=== PATIENT | male | born 1960 | race Caucasian/White ===

== ENCOUNTER 2017-02-07 18:08 | Emergency (ER) | payer BC, OTHER ==
[~2017-02-07] VITALS: Ht 175.3 cm; Wt 97.5 kg
[~2017-02-07 18:08] MED LIST: ASPI81TA3 PO; CIPR500T4 PO; CLIN-73 PO; GLIM1TAB2 PO; LISI40TA9 PO; LOVA20TA PO; MTF1000T PO; VERA80TA PO
[2017-02-07 18:26] VITALS: Ht 175.3 cm; Wt 97.5 kg
--- NOTE | 2017-02-07 20:52 | RADRPT ---
PROCEDURE: Left great toe. CLINICAL INDICATION: Pain. History of a fall. TECHNIQUE: AP oblique and lateral views are performed. COMPARISON: Left os 08/27/2015. FINDINGS: There is a metaphyseal spur off of the distal left first phalanx. The bony elements of the left gre at toe were normal. 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 There is wi dening of the left second PIP joint. IMPRESSION: 1. Normal left great toe. 2. 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 RPTAT:AAJJ Physician Salvador Date Time Electronically viewed and signed by Adolph Bird Physician on 02/07/2017 20:52 EH/
[2017-02-07] MEDS ORDERED: CIPR500T4 PO (21:23)
--- NOTE | 2017-02-07 21:34 | ERD ---
ER Documentation Chief Complaint Date/Time DATE: 02/07/17 TIME: 21:26 Chief Complaint LEFT GREAT TOE PAIN AND SWELLING, NAIL MOVING. STATES NO TRAUMA, HX DM HPI 56-year-old male patient with a past medical history of diabetes, hypertension, hyperlipidemia presents to the ED complaining of a left great toe swelling and feels like the nail is moving. Reports that this started 2 days ago. States that he was dancing in some dress shoes a few days ago but denies any trauma. Denies any abdominal pain, nausea, vomiting, loss of sensation, loss of range of motion. Reports that he has had a previous left second toe cellulitis but denies any pain or injury to that affected toe. States that he takes terbinafine, metformin, lisinopril, lovastatin, glimepiride, aspirin, folic acid. ROS All systems reviewed and are negative except as per history of present illness. Medications Home Meds Active Scripts Ibuprofen* (Motrin*) 600 Mg Tab, 600 MG PO Q6, #30 TAB Prov:MACHELLE MEADE PA-C 02/07/17 Ciprofloxacin Hcl* (Ciprofloxacin Hcl*) 500 Mg Tablet, 500 MG PO BID for 7 Days , TAB Prov:MACHELLE MEADE PA-C 02/07/17 Reported Medications Aspirin* (Aspirin* Chew) 81 Mg Tab.chew, 81 MG PO DAILY, TAB.CHEW 08/27/15 Lovastatin* (Lovastatin*) 20 Mg Tablet, 20 MG PO HS, TAB 08/27/15 Verapamil Hcl* (Calan*) 80 Mg Tablet, 80 MG PO TID, TAB 08/27/15 Glimepiride* (Glimepiride*) 1 Mg Tablet, 1 MG PO BID, TAB 08/27/15 Metformin* (Glucophage*) 1,000 Mg Tablet, 1000 MG PO BID, TAB 08/27/15 Lisinopril* (Lisinopril*) 40 Mg Tablet, 40 MG PO BID, TAB 08/27/15 Ciprofloxacin Hcl* (Ciprofloxacin Hcl*) 500 Mg Tablet, 500 MG PO BID for 10 Days , TAB 08/27/15 Clindamycin Hcl* (Clindamycin Hcl*) 300 Mg Capsule, 300 MG PO Q6 for 10 Days, CAP 08/27/15 Allergies Allergies: Coded Allergies: No Known Allergy (Unverified , 08/27/15) PMhx/Soc History of Surgery: No Anesthesia Reaction: No Hx Neurological Disorder: No Hx Respiratory Disorders: No Hx Cardiac Disorders: No Hx Psychiatric Problems: No Hx Miscellaneous Medical Probl: Yes (DM) Hx Alcohol Use: No Hx Substance Use: No Hx Tobacco Use: No Smoking Status: Never smoker Physical Exam Vitals Vital Signs Date Time Temp Pulse Resp B/P Pulse Ox O2 Delivery O2 Flow Rate FiO2 02/07/17 21:53 169/88 02/07/17 18:26 98.3 84 98 173/86 98 Physical Exam Const: Xcu-poa-megtkojsr, well-nourished. In no acute distress. Head: Atraumatic, normocephalic Eyes: Normal Conjunctiva without injection ENT: Normal external ear, nose and mouth. Neck: Full range of motion. No meningismus. Resp: Clear to auscultation bilaterally. No wheezing, rhonchi, rales, or crackles. No accessory muscle use. No retractions. Cardio: Regular rate and rhythm, no murmurs Skin: No petechiae or rashes Back: No midline tenderness. No CVA tenderness. Ext: No cyanosis, or edema. Cap refill less than 2 seconds. Distal pulses intact bilaterally. Left great toe fluctuance noted at the base of the nailbed with slight hematoma noted under. No erythema, edema, warmth to touch. No deformities noted. Neur: Awake and alert. Normal gait and coordination. Muscle strength 5/5. Sensation intact bilaterally. Psych: Normal Mood and Affect Procedures/MDM 56-year-old male patient with no significant past medical history presents to the ED complaining of a left great toe swelling after a possible injury from dancing. Patient is afebrile and nontoxic-appearing. Patient's blood pressure was noted to be 173/86. Patient's blood pressure was elevated (>120/80) but appears stable without evidence of hypertension emergency or urgency. The patient was counseled about the risks of hypertension and urged to pursue outpatient monitoring and therapy within a week with their primary care physician. Low suspicion for end organ damage. A left great toe x-ray was ordered to further evaluate patient. PROCEDURE: Left great toe. CLINICAL INDICATION: Pain. History of a fall. TECHNIQUE: AP oblique and lateral views are performed. COMPARISON: Left os 08/27/2015. FINDINGS: There is a metaphyseal spur off of the distal left first phalanx. The bony elements of the left great toe were normal. 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 There is widening of the left second PIP joint. IMPRESSION: 1. Normal left great toe. 2. 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 Patient gave consent to drain the paronychia versus subungual hematoma. Serosanguineous with clearish pink fluid was drained from the site using scissors that slightly grazed under the nail bed. No incision was made. No complications. Patient tolerated the procedure. A clean dressing was applied to the affected area. Patient's extremity symptoms have stabilized while they have been evaluated in the department and are appropriate for outpatient follow up. No evidence of fractures, dislocations, compartment syndrome, neurologic injury, vascular injury, open joint, open fracture, tendon laceration, septic arthritis, osteomyelitis, DVT, foreign body, or other emergent conditions. This case was discussed with my supervising physician, Dr. Rich The acro- osteolysis could likely be due to the chronic cellulitis that was previously noted of patient's left second phalanx. Patient does not complain of any left second phalanx pain, swelling or redness. Ciprofloxacin will be prescribed to patient to cover for possible pseudomonas since patient was wearing his shoes during a possible trauma to his left great toe while dancing. Patient is placed in a dressing of the left great toe. Denied wanting any crutches. Splint Assessment: Neurovascularly intact pre and post splint placement with good fit. Discharge medications: Ibuprofen, Ciprofloxacin Follow up with primary care physician in 1-2 days. Instructed patient to return to the ED sooner for any worsening symptoms. Patient's questions were answered. Patient understood and agreed with discharge plan. Patient discharged stable. Departure Diagnosis: Primary Impression: Paronychia of great toe, left Condition: Stable Patient Instructions: Paronychia Referrals: COMM[facility]ITY CLINICS YOU HAVE RECEIVED A MEDICAL SCREENING EXAM AND THE RESULTS INDICATE THAT YOU DO NOT HAVE A CONDITION THAT REQUIRES URGENT TREATMENT IN THE EMERGENCY DEPARTMENT. FURTHER EVALUATION AND TREATMENT OF YOUR CONDITION CAN WAIT UNTIL YOU ARE SEEN IN YOUR DOCTORS OFFICE WITHIN THE NEXT 1-2 DAYS. IT IS YOUR RESPONSIBILITY TO MAKE AN APPOINTMENT FOR FOLOW-UP CARE. IF YOU HAVE A PRIMARY DOCTOR --you should call your primary doctor and schedule an appointment IF YOU DO NOT HAVE A PRIMARY DOCTOR YOU CAN CALL OUR PHYSICIAN REFERRAL HOTLINE AT IF YOU CAN NOT AFFORD TO SEE A PHYSICIAN YOU CAN CHOSE FROM THE FOLLOWING [facility] [address] [facility] [address] [facility] [address] [facility] [address] [facility] [address] [facility]. [facility] [address] [facility]. [facility] YOU HAVE RECEIVED A MEDICAL SCREENING EXAM AND THE RESULTS INDICATE THAT YOU DO NOT HAVE A CONDITION THAT REQUIRES URGENT TREATMENT IN THE EMERGENCY DEPARTMENT. FURTHER EVALUATION AND TREATMENT OF YOUR CONDITION CAN WAIT UNTIL YOU ARE SEEN IN YOUR DOCTORS OFFICE WITHIN THE NEXT 1-2 DAYS. IT IS YOUR RESPONSIBILITY TO MAKE AN APPOINTMENT FOR FOLOW-UP CARE. IF YOU HAVE A PRIMARY DOCTOR --you should call your primary doctor and schedule and appointment IF YOU DO NOT HAVE A PRIMARY DOCTOR YOU CAN CALL OUR PHYSICIAN REFERRAL HOTLINE AT . IF YOU CAN NOT AFFORD TO SEE A PHYSICIAN YOU CAN CHOSE FROM THE FOLLOWING [facility] INSTITUTIONS: [facility] [address] [place] [address] [facility] [address] [place] [address] [facility] [address] [place] [address] [facility] URGENT CARE/SPECIALTIES Additional Instructions: Seguimiento con mclaughlin mdico de faye en 2 prado para marian referencia al podlogo. WOUND CHECK:CONSULTE A MCLAUGHLIN MDICO EN 2 prado para marie MCLAUGHLIN HERIDA. Regrese a estas instalaciones si no se mejora jj esperbamos o jj le dijimos. MACHELLE MEADE PA-C Feb 07, 2017 21:34
[2017-02-07] MEDS ORDERED: IBUP-1542 PO (21:35)
[2017-02-07 21:53] VITALS: BP 169/88
== END 2017-02-07 21:53 | disposition home or self-care (01) ==
LOC: FTE 18:08
DX: L03.032 Cellulitis of left toe (principal); E11.9 Type 2 diabetes mellitus without complications; Z79.4 Long term (current) use of insulin; Z79.82 Long term (current) use of aspirin; Z79.84 Long term (current) use of oral hypoglycemic drugs
CPT/HCPCS: 73660; Z7502

== ENCOUNTER 2017-04-11 16:24 | Emergency (ER) | payer OTHER ==
[~2017-04-11] VITALS: Ht 167.6 cm; Wt 93.5 kg
[~2017-04-11 16:24] MED LIST changes: +IBUP-1542 PO
[2017-04-11 17:03] VITALS: Ht 167.6 cm; Wt 93.5 kg
[2017-04-11] MEDS ORDERED: SULF1TAB31 PO (17:20)
[2017-04-11] MEDS ORDERED: CEPH-443 PO (17:20)
--- NOTE | 2017-04-11 19:21 | ERA ---
ER Documentation Chief Complaint Date/Time DATE: 04/11/17 TIME: 19:13 Chief Complaint Patient here for wound check HPI This is a 56-year-old male with a history of poorly controlled type 2 diabetes mellitus as well as hypertension presenting with a chief complaint of right second digit ulcer. Patient has a history of foot ulcer on various toes. Patient also describes foul smell. Patient denies pain, discharge, dizziness, polyuria, polydipsia, headache, fever, or doing anything to improve the symptoms. Patient has no other complaints and describes no other associated manifestations. ROS All systems reviewed and are negative except as per history of present illness. Medications Home Meds Active Scripts Cephalexin* (Keflex*) 500 Mg Capsule, 500 MG PO QID for 5 Days, CAP Prov:PRISCILA RUDOLPH PA-C 04/11/17 Sulfamethoxazole/Trimethoprim* (Bactrim Ds* Tablet) 1 Each Tablet, 1 TAB PO BID , #14 TAB Prov:PRISCILA RUDOLPH PA-C 04/11/17 Ibuprofen* (Motrin*) 600 Mg Tab, 600 MG PO Q6, #30 TAB Prov:MACHELLE MEADE PA-C 02/07/17 Ciprofloxacin Hcl* (Ciprofloxacin Hcl*) 500 Mg Tablet, 500 MG PO BID for 7 Days , TAB Prov:MACHELLE MEADE PA-C 02/07/17 Reported Medications Aspirin* (Aspirin* Chew) 81 Mg Tab.chew, 81 MG PO DAILY, TAB.CHEW 08/27/15 Lovastatin* (Lovastatin*) 20 Mg Tablet, 20 MG PO HS, TAB 08/27/15 Verapamil Hcl* (Calan*) 80 Mg Tablet, 80 MG PO TID, TAB 08/27/15 Glimepiride* (Glimepiride*) 1 Mg Tablet, 1 MG PO BID, TAB 08/27/15 Metformin* (Glucophage*) 1,000 Mg Tablet, 1000 MG PO BID, TAB 08/27/15 Lisinopril* (Lisinopril*) 40 Mg Tablet, 40 MG PO BID, TAB 08/27/15 Ciprofloxacin Hcl* (Ciprofloxacin Hcl*) 500 Mg Tablet, 500 MG PO BID for 10 Days , TAB 08/27/15 Clindamycin Hcl* (Clindamycin Hcl*) 300 Mg Capsule, 300 MG PO Q6 for 10 Days, CAP 08/27/15 Allergies Allergies: Coded Allergies: No Known Allergy (Unverified , 08/27/15) PMhx/Soc History of Surgery: No Anesthesia Reaction: No Hx Neurological Disorder: No Hx Respiratory Disorders: No Hx Cardiac Disorders: No Hx Psychiatric Problems: No Hx Miscellaneous Medical Probl: Yes (DM) Hx Alcohol Use: No Hx Substance Use: No Hx Tobacco Use: No Physical Exam Vitals Vital Signs Date Time Temp Pulse Resp B/P Pulse Ox O2 Delivery O2 Flow Rate FiO2 04/11/17 17:03 97.2 76 20 157/76 99 Physical Exam Const: Overweight 56-year-old male in no acute distress Head: Atraumatic Eyes: Normal Conjunctiva ENT: Normal External Ears, Nose and Mouth. Neck: Full range of motion..~ No meningismus. Resp: Clear to auscultation bilaterally Cardio: Regular rate and rhythm, no murmurs Abd: Soft, non tender, non distended. Normal bowel sounds Skin: No petechiae or rashes. As noted in extremity exam. Back: No midline or flank tenderness Ext: 2+ pitting edema bilaterally of lower extremities. Distal right second digit of foot is necrotic but not passing the subcutaneous tissue. Sensation is still intact. Full range of motion. Neur: Awake and alert. As noted in extremity exam. Neurovascularly intact bilaterally. Psych: Normal Mood and Affect Procedures/MDM This is a 56-year-old male with history of type 2 diabetes mellitus that is uncontrolled and a history of diabetic foot ulcers. Patient is presenting with signs and symptoms consistent with a diabetic foot ulcer. I have little suspicion for systemic infection, osteomyelitis or immediate threatening of toe viability at this time. I presented the case to my attending Dr. Rich who has suggested antibiotics with Keflex and Bactrim with close follow-up in the next 1-3 days with amputation prevention center. A handout of the amputation prevention center has been given to the patient. Patient has verbally responded that he agrees and understands the seriousness of his current condition and the plan of management. Patient's vitals are stable and will be discharged at this time with discharge instructions and return precautions Departure Diagnosis: Primary Impression: Diabetic foot ulcers Qualified Code: E11.621 - Diabetic ulcer of toe of right foot associated with type 2 diabetes mellitus, unspecified ulcer stage Additional Impression: Diabetic foot infection Condition: Stable Patient Instructions: Diabetic Foot Ulcers Referrals: [facility] Additional Instructions: Follow up with am[facility] prevention center within the next 1-3 days for a more thorough evaluation. Follow-up with PCP in the next week. Return the the emergency department immediately if symptoms worsen or change. If you have any questions regarding medications, ask your pharmacist or us before you leave. If any adverse reactions occur while taking your medications, discontinue the treatment and return to the emergency department immediately. Take your medications as directed, and complete the entire course of treatment. PRISCILA RUDOLPH PA-C Apr 11, 2017 19:21
== END 2017-04-11 17:27 | disposition home or self-care (01) ==
LOC: FTE 16:24 → E/R 17:27
DX: E11.621 Type 2 diabetes mellitus with foot ulcer (principal); L97.519 Non-pressure chronic ulcer of other part of right foot with unspecified severity; L08.9 Local infection of the skin and subcutaneous tissue, unspecified; I10 Essential (primary) hypertension; Z79.82 Long term (current) use of aspirin; Z79.84 Long term (current) use of oral hypoglycemic drugs
CPT/HCPCS: 99284

== ENCOUNTER 2017-05-25 20:57 | Inpatient (IN) | payer OTHER ==
[~2017-05-25] VITALS: Ht 175.3 cm; Wt 90.2 kg
[~2017-05-25 20:57] MED LIST changes: +CEPH-443 PO; +SULF1TAB31 PO
[2017-05-25 22:50] LABS: BASOPHIL # 0.1 10^3/ul (0.0-0.1); BASOPHILS % 0.8 % (0.0-2.0); EOSINOPHILS # 0.2 10^3/ul (0.0-0.5); EOSINOPHILS % 2.5 % (0.0-7.0); HEMATOCRIT 34.6 % (42.0-52.0); HEMOGLOBIN 11.2 g/dl (14.0-18.0); LYMPHOCYTES # 1.6 10^3/ul (0.8-2.9); LYMPHOCYTES % 21.3 % (15.0-51.0); MEAN CORPUSCULAR HEMOGLOBIN 27.4 pg (29.0-33.0); MEAN CORPUSCULAR HGB CONC 32.4 g/dl (32.0-37.0); MEAN CORPUSCULAR VOLUME 84.6 fl (82.0-101.0); MEAN PLATELET VOLUME 10.3 fl (7.4-10.4); MONOCYTE # 0.7 10^3/ul (0.3-0.9); MONOCYTES % 9.8 % (0.0-11.0); NEUTROPHIL # 4.8 10^3/ul (1.6-7.5); NEUTROPHILS % 65.3 % (39.0-77.0); PLATELET COUNT 198 10^3/UL (140-415); RED BLOOD COUNT 4.09 10^6/ul (4.70-6.10); RED CELL DISTRIBUTION WIDTH 13.3 % (11.5-14.5); WHITE BLOOD COUNT 7.3 10^3/ul (4.8-10.8)
[2017-05-25 23:10] LABS: CALCIUM 9.4 mg/dl (8.4-10.2); CREATININE 0.87 mg/dl (0.61-1.24); POTASSIUM 4.2 mmol/L (3.5-5.1)
--- NOTE | 2017-05-25 23:12 | RADRPT ---
PROCEDURE: XR Foot. CLINICAL INDICATION: 56-year-old male. Injury to second toe.. TECHNIQUE: 3 views of the right foot COMPARISON: None available. FINDINGS: There is a complex fracture involving all phalanges of the second toe with soft tissue swelling. Th ere is a bone and soft tissue avulsion of the tuft of the distal phalanx. Comminuted fracture fragm ents remain and are dislocated at the distal interphalangeal joint. There is a minimally displaced intra-articular fracture of the base of the middle phalanx involving the PIP joint and there is a mi ldly displaced fracture of the head of the proximal phalanx involving the PIP joint. Normal alignme nt of the MTP joint. No acute fractures are identified elsewhere in the foot. Negative for radiopaque foreign body. IMPRESSION: Complex fracture involving all phalanges of the second toe with a soft tissue injury including bony and soft tissue avulsion of the tuft of the distal phalanx described above.. RPTAT: HCTS Physician Dominik Date Time Electronically viewed and signed by Physician Dominik on 05/25/2017 23:11 /
[2017-05-25] MEDS ORDERED: PIPER-TAZO 3.375 GM IV (PMX) 100 ML IVPB STA (23:25)
[2017-05-25] MEDS ORDERED: SOD CHLORIDE 0.9% 1,000 ML IV ONE (23:30)
[2017-05-25] MEDS ORDERED: VANCOMYCIN 1 GM (PMX) 250 ML IVPB ONE (23:30)
[2017-05-26] MEDS ORDERED: VITA400C41 PO (00:12)
[2017-05-26] MEDS ORDERED: MULTI PO (00:12)
[2017-05-26] MEDS ORDERED: BIOT1CAP3 PO (00:12)
[2017-05-26] MEDS ORDERED: OMEG-119 PO (00:12)
[2017-05-26] MEDS ORDERED: [UNRECOGNIZED DRUG - CODE] PO (00:12)
[2017-05-26] MEDS ORDERED: VITA1CAP PO (00:12)
[2017-05-26] MEDS ORDERED: CALC-516 PO (00:50)
[2017-05-26] MEDS ORDERED: VANCOMYCIN IV PER PHARMACY XX SCH (02:00)
[2017-05-26] MEDS ORDERED: ACETAMINOPHEN 325 MG TAB PO PRN (02:00)
--- NOTE | 2017-05-26 02:12 | QN ---
Documentation Comment H&P dict a/p 1. dm foot infection, check MRI, cont abx 2. r/o DVT r leg 3. check echo with bilat leg edema 4. htn, increase med BAN BENITEZ MD May 26, 2017 02:12
[2017-05-26] MEDS ORDERED: GLUCOSE GEL 15 GRAM TUBE PO PRN (02:15)
[2017-05-26] MEDS ORDERED: GLUCOSE GEL 15 GRAM TUBE BUCCAL PRN (02:15)
[2017-05-26] MEDS ORDERED: DEXTROSE 50% 50 ML SYRINGE IV PRN ×2 (02:15)
[2017-05-26] MEDS ORDERED: GLUCAGON 1 MG INJ IM PRN (02:15)
--- NOTE | 2017-05-26 02:33 | RADRPT ---
PROCEDURE: US right lower extremity venous Doppler CLINICAL INDICATION: Right leg swelling TECHNIQUE: Multiple sonographic images of the right lower extremity deep venous system was obtaine d utilizing grayscale, color-flow, compressive sonography and Doppler imaging with augmentation. COMPARISON: No pertinent prior examinations were submitted for comparison. FINDINGS: There is normal compressibility and flow within the right common femoral, superficial femoral, popli teal, and peroneal veins. IMPRESSION: No sonographic evidence for deep venous thrombosis. RPTAT: HIKT .Miguel Lechuga MD, MD Date Time Electronically viewed and signed by .Miguel Lechuga MD, MD on 05/26/2017 02:32 .T/
[2017-05-26 04:00] VITALS: BP 168/79; PULSE 80; RESP 18; Ht 175.3 cm; Wt 90.2 kg
--- NOTE | 2017-05-26 04:04 | HP ---
DATE OF ADMISSION: 05/25/2017 CHIEF COMPLAINT: Right foot pain. HISTORY OF PRESENT ILLNESS: Patient presents to emergency room at [facility] after the direction of his medtronics technician for worsening swelling and erythema of the right foot. This has apparently been getting progressively worse over the last 6 weeks or so. The patient has been taking oral antibiotics for this, went to see his medtronics technician today, and was referred to the emergency room. PAST MEDICAL HISTORY: Significant for diabetes with neuropathy, hypertension. MEDICATIONS: As an outpatient include: 1. Bactrim. 2. Keflex. 3. Lisinopril 40 mg b.i.d. 4. Lovastatin 20 mg daily. 5. Fish oil. 6. Verapamil 80 mg t.i.d. 7. Aspirin 81 mg daily. 8. Ibuprofen p.r.n. 9. Os-Bentley plus d. 10. Glimepiride 1 mg b.i.d. 11. Metformin 1000 mg b.i.d. 12. Multivitamin. 13. Biotin. 14. Vitamin E. ALLERGIES: NO KNOWN DRUG ALLERGIES. SOCIAL HISTORY: Patient lives at home in [place] with his mother. He is independent with activities of daily living. Continues to try drive. Denies tobacco, alcohol, or illicit drug use. FAMILY HISTORY: Noncontributory. REVIEW OF SYSTEMS: Five systems were reviewed and found not to be revealing. PHYSICAL EXAMINATION: VITAL SIGNS: Blood pressure 167/85, pulse rate 88, respirations 20, temperature is 99.1. GENERAL: Pleasant man, no acute distress. Alert and oriented x3. HEENT: Normocephalic, atraumatic. Without evidence of scleral icterus, perioral cyanosis. Mucous membranes moist. NECK: Soft and supple, without masses. No evidence of jugular venous distention. No carotid bruits. CHEST: Clear to auscultation and percussion bilaterally. HEART: A regular rate and rhythm. S1, S2. No added sounds. ABDOMEN: Soft, nontender, nondistended, without palpable hepatosplenomegaly. EXTREMITIES: Without clubbing or cyanosis. There is bilateral leg edema. However, the right is much more affected than his left. In the left foot, there is an area of dark discoloration over the 3rd toe. I am not certain that this was frankly necrotic and this may represent bruising or eschar. On the right foot, there is an area of hammertoe on the 3rd toe, but the 2nd toe is markedly swollen with a punctate area of expressible pus at the tip. SKIN: Otherwise without rashes. NEUROLOGICAL: Grossly intact. LABORATORY STUDIES: Reveal a hemoglobin of 11.2 g/dL, white count 7300, platelets of 190,000. Sodium 141, potassium 4.3, chloride of 101, bicarbonate 29, BUN 17, creatinine 0.87, glucose 178. Plain film x-ray shows local fractures of the 2nd toe phalanx. ASSESSMENT AND PLAN: 1. Diabetic foot infection. We will obtain MRI. Patient will undoubtedly need surgical debridement. Start intravenous antibiotics. 2. Right, much greater than left, leg swelling. Plan to rule out venous thromboembolic disease. Obtain vascular ultrasound. 3. Hypertension, add Coreg, hydralazine as needed. Continue verapamil and lisinopril, add hydrochlorothiazide. 4. Check echocardiogram, especially in light of both leg swelling. Dictated By: Ricardo Bear MD /luigi/naomi /Document#: [id number]
--- NOTE | 2017-05-26 04:04 | ERA ---
ER Documentation Chief Complaint Date/Time DATE: 05/26/17 TIME: 04:00 Chief Complaint right second toe drainage. Parking Meter Collector suggested to be in hospital. Hx: DM HPI This 56-year-old male presents the ER with discharge from his right second toe as well as whole foot swelling and swelling going up his leg. His first started 3 weeks ago. He has seen a private coordinator of library services since who today suggested that he go to the hospital for admission. He has been on Bactrim and Keflex for almost 2 weeks. He suffers from diabetes and has severe neuropathy with numbness of his feet. He does not remember any trauma to the foot area. He has had no fevers or chills. ROS All systems reviewed and are negative except as per history of present illness. Medications Home Meds Active Scripts Cephalexin* (Keflex*) 500 Mg Capsule, 500 MG PO QID for 5 Days, CAP Prov:PRISCILA RUDOLPH PA-C 04/11/17 Sulfamethoxazole/Trimethoprim* (Bactrim Ds* Tablet) 1 Each Tablet, 1 TAB PO BID , #14 TAB Prov:PRISCILA RUDOLPH PA-C 04/11/17 Ibuprofen* (Motrin*) 600 Mg Tab, 600 MG PO Q6, #30 TAB Prov:MACHELLE MEADE PA-C 02/07/17 Reported Medications Calcium Carbonate/Vitamin D3 (OY[place] SHELL CALCIUM TABLET) 1 Each Tablet, 1 EACH PO, TAB 05/26/17 Vitamin E Mixed* (Vitamin E*) 400 Unit Capsule, 400 UNIT PO DAILY, CAP 05/26/17 Biotin (BIOTIN) 1 Mg Capsule, 1 MG PO, CAP 05/26/17 Omega3/Dha/Epa/Fish Oil/Vit D3 ([place]-3 + Vitamin D3 Softgel) 1 Each Capsule, 1 EACH PO, CAP 05/26/17 Vitamin B Complex (Vitamin B Complex) 1 Each Capsule, 1 EACH PO, CAP 05/26/17 Multivitamins* (Theragran*) 1 Tab Tab, 1 TAB PO DAILY, TAB 05/26/17 Aspirin* (Aspirin* Chew) 81 Mg Tab.chew, 81 MG PO DAILY, TAB.CHEW 08/27/15 Lovastatin* (Lovastatin*) 20 Mg Tablet, 20 MG PO HS, TAB 08/27/15 Verapamil Hcl* (Calan*) 80 Mg Tablet, 80 MG PO TID, TAB 08/27/15 Glimepiride* (Glimepiride*) 1 Mg Tablet, 1 MG PO BID, TAB 08/27/15 Metformin* (Glucophage*) 1,000 Mg Tablet, 1000 MG PO BID, TAB 08/27/15 Lisinopril* (Lisinopril*) 40 Mg Tablet, 40 MG PO BID, TAB 08/27/15 Discontinued Reported Medications Calcium Phosphate Trib/Vit D3 (CALCIUM ADULT GUMMIES) 1 Each Tab.chew, 1 EACH PO , TAB.CHEW 05/26/17 Ciprofloxacin Hcl* (Ciprofloxacin Hcl*) 500 Mg Tablet, 500 MG PO BID for 10 Days , TAB 08/27/15 Clindamycin Hcl* (Clindamycin Hcl*) 300 Mg Capsule, 300 MG PO Q6 for 10 Days, CAP 08/27/15 Discontinued Scripts Ciprofloxacin Hcl* (Ciprofloxacin Hcl*) 500 Mg Tablet, 500 MG PO BID for 7 Days , TAB Prov:MACHELLE MEADE PA-C 02/07/17 Allergies Allergies: Coded Allergies: No Known Allergy (Unverified , 05/26/17) PMhx/Soc History of Surgery: No Anesthesia Reaction: No Hx Neurological Disorder: No Hx Respiratory Disorders: No Hx Cardiac Disorders: No Hx Psychiatric Problems: No Hx Miscellaneous Medical Probl: Yes (DM) Hx Alcohol Use: No Hx Substance Use: No Hx Tobacco Use: No Smoking Status: Unknown if ever smoked Physical Exam Vitals Vital Signs Date Time Temp Pulse Resp B/P Pulse Ox O2 Delivery O2 Flow Rate FiO2 05/26/17 03:16 81 18 153/81 100 Room Air 05/25/17 21:02 99.1 88 20 167/85 99 Physical Exam Const: [] No distress Head: Atraumatic Eyes: Normal Conjunctiva ENT: Normal External Ears, Nose and Mouth. Neck: Full range of motion..~ No meningismus. Resp: Clear to auscultation bilaterally Cardio: Regular rate and rhythm, no murmurs Abd: Soft, non tender, non distended. Normal bowel sounds Skin: No petechiae or rashes Ext: No cyanosis, markets swelling of the second toe as well as all the other toes and the foot the foot as well as the ankle and mcc up the manuel with circumferential erythema, calor. No fluctuant areas. Neur: Awake and alert and oriented 3, no focal deficits Psych: Normal Mood and Affect Result Diagram: 05/25/17223405/25/172234 Results 24 hrs Laboratory Tests Test 05/25/17 22:35 White Blood Count 7.310^3/ul Red Blood Count 4.0910^6/ul Hemoglobin 11.2g/dl Hematocrit 34.6% Mean Corpuscular Volume 84.6fl Mean Corpuscular Hemoglobin 27.4pg Mean Corpuscular Hemoglobin Concent 32.4g/dl Red Cell Distribution Width 13.3% Platelet Count 50143^3/UL Mean Platelet Volume 10.3fl Neutrophils % 65.3% Lymphocytes % 21.3% Monocytes % 9.8% Eosinophils % 2.5% Basophils % 0.8% Nucleated Red Blood Cells % 0.0/100WBC Neutrophils # 4.810^3/ul Lymphocytes # 1.610^3/ul Monocytes # 0.710^3/ul Eosinophils # 0.210^3/ul Basophils # 0.110^3/ul Nucleated Red Blood Cells # 0.010^3/ul Sodium Level 141mmol/L Potassium Level 4.2mmol/L Chloride Level 101mmol/L Carbon Dioxide Level 29mmol/L Anion Gap 15 Blood Urea Nitrogen 17mg/dl Creatinine 0.87mg/dl Glucose Level 178mg/dl Calcium Level 9.4mg/dl Current Medications Medications (Trade) Dose Ordered Sig/Collins Route PRN Reason Start Time Stop Time Status Last Admin Dose Admin Vancomycin HCl 250 ml @ 125 mls/hr ONCE ONCE IVPB 05/25/17 23:30 05/26/17 01:29 DC 05/26/17 01:03 Piperacillin Sod/ Tazobactam Sod 100 ml @ 200 mls/hr ONCE STAT IVPB 05/25/17 23:25 05/25/17 23:54 DC 05/26/17 00:18 Sodium Chloride (NS) 1,000 ml @ 1,000 mls/hr Q1H ONCE IV 05/25/17 23:30 05/26/17 00:29 DC 05/26/17 00:18 Aspirin (Aspirin) 81 mg DAILY PO 05/26/17 09:00 Lisinopril (Zestril) 40 mg BID PO 05/26/17 09:00 Metformin HCl (Glucophage) 1,000 mg BID WITH MEALS PO 05/26/17 08:00 Multivitamins Therapeutic (Theragran) 1 tab DAILY PO 05/26/17 09:00 Verapamil HCl (Isoptin) 80 mg TID PO 05/26/17 09:00 Vitamin E (Vitamin E) 400 units DAILY PO 05/26/17 09:00 Atorvastatin Calcium (Lipitor) 10 mg DAILY@21 PO 05/26/17 21:00 Vancomycin HCl VANCOMYCIN PER PHARMACY PER PROTOCOL XX 05/26/17 02:00 Piperacillin Sod/ Tazobactam Sod (Zosyn 3.375gm/ 100 ml (Pmx)) 100 ml @ 200 mls/hr Q8 IVPB 05/26/17 06:30 Acetaminophen (Tylenol Tab) 650 mg Q4H PRN PO pain/fever 05/26/17 02:00 Hydralazine HCl (Apresoline) 25 mg Q6H PRN PO sbp>160 05/26/17 02:00 Hydrochlorothiazide (Hydrochlorothiazide) 25 mg DAILY PO 05/26/17 09:00 Carvedilol (Coreg) 3.125 mg Q12H PO 05/26/17 02:00 05/26/17 03:15 Miscellaneous Information (* Miscellaneous Pharmacy Order) Discontinue current oral sulfonylur... ONCE ONCE XX 05/26/17 02:30 05/26/17 02:31 DC Diagnostic Test (Pha) (Accu-Chek) 1 ea 02 XX 05/27/17 02:00 UNV Miscellaneous Information (* Miscellaneous Pharmacy Order) HYPOGLYCEMIA PROTOCOL w... ONCE ONCE XX 05/26/17 02:30 05/26/17 02:31 DC Insulin Aspart (Novolog Insulin Pen) NOVOLOG *MODERATE* ALGORITHM WITH MEALS BEDTIME SC 05/26/17 08:00 UNV Insulin Aspart (Novolog Insulin Pen) NOVOLOG *MODERATE* ALGORI... Q4 SC 05/26/17 05:00 Miscellaneous Information Discontinue all previ... ONCE ONCE XX 05/26/17 02:30 05/26/17 02:31 DC Vancomycin HCl/ Sodium Chloride (Vancocin/NS) 250 ml @ 83.333 mls/ hr Q12H IVPB 05/26/17 09:00 Miscellaneous Information 1 ea NOTE XX 05/26/17 02:15 Glucose (Glutose) 15 gm Q15M PRN PO DECREASED GLUCOSE 05/26/17 02:15 Glucose (Glutose) 22.5 gm Q15M PRN PO DECREASED GLUCOSE 05/26/17 02:15 Dextrose (D50w Syringe) 25 ml Q15M PRN IV DECREASED GLUCOSE 05/26/17 02:15 Dextrose (D50w Syringe) 50 ml Q15M PRN IV DECREASED GLUCOSE 05/26/17 02:15 Glucagon (Glucagen) 1 mg Q15M PRN IM DECREASED GLUCOSE 05/26/17 02:15 Glucose (Glutose) 15 gm Q15M PRN BUCCAL DECREASED GLUCOSE 05/26/17 02:15 Procedures/MDM Diabetic with right leg cellulitis that failed outpatient treatment as well as what was previously an open fracture that was not treated for some time. Patient has fractures of all the phalanges of his right second toe. He remembers no trauma. Start him on vancomycin and Zosyn. Also gave him IV fluid and obtain blood cultures. The potentially limb threatening injury. Dr. Carmen came and saw the patient in the emergency room and will be admitting him to the medical surgical floor. X-ray foot interpretation: Fracture of all 3 bones of the right second toe. Market soft tissue swelling. Departure Diagnosis: Primary Impression: Cellulitis of right foot Additional Impressions: Failure of outpatient treatment Closed fracture of second toe of left foot Diabetic neuropathy Condition: Serious DINESH LIMON DO May 26, 2017 04:04
[2017-05-26] MEDS: INSULIN ASPART [NOVOLOG] 3 ML PEN SC SCH ×4 (04:43→21:00)
[2017-05-26] MEDS: DEXTROSE 5%-0.45% NACL 1,000 ML IV SCH ×2 (04:59→21:35)
[2017-05-26 05:27] LABS: INR 1.02; PARTIAL THROMBOPLASTIN TIME 31.3 Sec (25.0-35.0); PROTIME 13.4 Sec (12.2-14.2)
[2017-05-26] MEDS: PIPER-TAZO 3.375 GM IV (PMX) 100 ML IVPB SCH ×3 (06:27→21:34)
[2017-05-26] MEDS ORDERED: INSULIN ASPART [NOVOLOG] 3 ML PEN SC SCH ×2 (07:50→17:55)
[2017-05-26] MEDS ORDERED: metFORMIN 500 MG TAB PO SCH (07:50)
[2017-05-26 08:00] VITALS: BP 162/90; RESP 18
[2017-05-26] MEDS: LISINOPRIL 20 MG TAB PO SCH ×2 (09:45→21:24)
[2017-05-26] MEDS: ASPIRIN 81 MG TAB PO SCH ×2 (09:45→14:29)
[2017-05-26] MEDS: MULTIVITAMINS THERAPEUTIC TAB PO SCH (09:45)
[2017-05-26] MEDS: HYDROCHLOROTHIAZIDE 25 MG TAB PO SCH (09:45)
[2017-05-26] MEDS: VANCOMYCIN 1.25 GM in SOD CHLORIDE 0.9% 250 ML IVPB SCH ×2 (11:29→22:15)
[2017-05-26 14:00] VITALS: BP 163/85; RESP 18
[2017-05-26] MEDS: VITAMIN E 400 UNITS CAP PO SCH (14:29)
[2017-05-26] MEDS: VERAPAMIL 80 MG TAB PO SCH ×3 (14:30→21:23)
[2017-05-26 16:00] VITALS: BP 163/85; RESP 18
--- NOTE | 2017-05-26 16:00 | CONS ---
Date/Time of Note Date/Time of Note DATE: 05/26/17 TIME: 15:59 Consultation Date/Type/Reason Admit Date/Time May 26, 2017 at 02:03 Date of Consultation: May 26, 2017 Type of Consultation: ID Reason for Consultation Antibiotic management Social History Smoking Status: Former smoker Exam/Review of Systems Vital Signs Vitals Vital Signs Date Time Temp Pulse Resp B/P Pulse Ox O2 Delivery O2 Flow Rate FiO2 05/26/17 08:00 98.6 75 18 162/90 97 05/26/17 04:00 Room Air Results Result Diagram: 05/25/17 2235 05/26/17 0454 Results 24 hrs Laboratory Tests Test 05/25/17 22:35 05/26/17 04:23 05/26/17 04:54 05/26/17 04:58 White Blood Count 7.3 # Red Blood Count 4.09 L Hemoglobin 11.2 #L Hematocrit 34.6 #L Mean Corpuscular Volume 84.6 Mean Corpuscular Hemoglobin 27.4 L Mean Corpuscular Hemoglobin Concent 32.4 Red Cell Distribution Width 13.3 Platelet Count 198 Mean Platelet Volume 10.3 Neutrophils % 65.3 Lymphocytes % 21.3 Monocytes % 9.8 Eosinophils % 2.5 Basophils % 0.8 Nucleated Red Blood Cells % 0.0 Neutrophils # 4.8 Lymphocytes # 1.6 Monocytes # 0.7 Eosinophils # 0.2 Basophils # 0.1 Nucleated Red Blood Cells # 0.0 Sodium Level 141 Potassium Level 4.2 Chloride Level 101 Carbon Dioxide Level 29 Anion Gap 15 Blood Urea Nitrogen 17 Creatinine 0.87 Glucose Level 178 113 # Calcium Level 9.4 Bedside Glucose 56 L 113 Prothrombin Time 13.4 Prothrombin Time Ratio 1.0 INR International Normalized Ratio 1.02 Activated Partial Thromboplast Time 31.3 Test 05/26/17 05:18 05/26/17 09:43 05/26/17 12:54 05/26/17 13:42 Bedside Glucose 117 84 84 Hemoglobin A1c 6.1 H Medications Medications Current Medications Aspirin (Aspirin) 81 mg DAILY PO Last administered on 05/26/17 14:29; Admin Dose 81 MG; Start 05/26/17 at 09:00 Lisinopril (Zestril) 40 mg BID PO Last administered on 05/26/17 09:45; Admin Dose 40 MG; Start 05/26/17 at 09:00 Multivitamins Therapeutic (Theragran) 1 tab DAILY PO Last administered on 09:45; Admin Dose 1 TAB; Start 05/26/17 at 09:00 Verapamil HCl (Isoptin) 80 mg TID PO Last administered on 05/26/17 14:33; Admin Dose 80 MG; Start 05/26/17 at 09:00 Vitamin E (Vitamin E) 400 units DAILY PO Last administered on 05/26/17 14:29; Admin Dose 400 UNITS; Start 05/26/17 at 09:00 Atorvastatin Calcium 10 mg 10 mg DAILY@21 PO ; Start 05/26/17 at 21:00 Piperacillin Sod/ Tazobactam Sod (Zosyn 3.375gm/ 100 ml (Pmx)) 100 ml @ 200 mls /hr Q8 IVPB Last administered on 05/26/17 14:30; Admin Dose 200 MLS/HR; Start 05/26/17 at 06:30 Acetaminophen (Tylenol Tab) 650 mg Q4H PRN PO pain/fever; Start 05/26/17 at 02: 00 Hydralazine HCl (Apresoline) 25 mg Q6H PRN PO sbp>160; Start 05/26/17 at 02:00 Hydrochlorothiazide (Hydrochlorothiazide) 25 mg DAILY PO Last administered on 09:45; Admin Dose 25 MG; Start 05/26/17 at 09:00 Carvedilol 3.125 mg 3.125 mg Q12H PO Last administered on 05/26/17 14:29; Admin Dose 3.125 MG; Start 05/26/17 at 02:00 Vancomycin HCl/ Sodium Chloride (Vancocin/NS) 250 ml @ 83.333 mls/ hr Q12H IVPB Last administered on 05/26/17 11:29; Admin Dose 83.333 MLS/HR; Start 08/02 at 09:00 Miscellaneous Information 1 ea NOTE XX ; Start 05/26/17 at 02:15 Glucose (Glutose) 15 gm Q15M PRN PO DECREASED GLUCOSE; Start 05/26/17 at 02:15 Glucose (Glutose) 22.5 gm Q15M PRN PO DECREASED GLUCOSE; Start 05/26/17 at 02: 15 Dextrose (D50w Syringe) 25 ml Q15M PRN IV DECREASED GLUCOSE Last administered on 05/26/17 04:36; Admin Dose 25 ML; Start 05/26/17 at 02:15 Dextrose (D50w Syringe) 50 ml Q15M PRN IV DECREASED GLUCOSE; Start 05/26/17 at 02:15 Glucagon (Glucagen) 1 mg Q15M PRN IM DECREASED GLUCOSE; Start 05/26/17 at 02:15 Glucose 15 gm 15 gm Q15M PRN BUCCAL DECREASED GLUCOSE; Start 05/26/17 at 02:15 Dextrose/Sodium Chloride (D5-1/2ns) 1,000 ml @ 100 mls/hr Q10H IV Last administered on 05/26/17 04:59; Admin Dose 100 MLS/HR; Start 05/26/17 at 05:00 Insulin Glargine (Lantus) 18 unit DAILY@08 SC ; Start 05/27/17 at 08:00 Diagnostic Test (Pha) (Accu-Chek) 1 ea 02 XX ; Start 05/27/17 at 02:00 NINA SOTO MD May 26, 2017 16:00
[2017-05-26 19:40] VITALS: BP 174/84; RESP 18
--- NOTE | 2017-05-26 20:02 | RADRPT ---
PROCEDURE: MR right Foot. CLINICAL INDICATION: 56-year-old man. Draining pus from the right second toe. Diabetic. TECHNIQUE: 1.5 Dianna scanner: Short axis T1 and STIR, long axis T1 and STIR and sagittal T1 and ST IR imaging was performed through the forefoot. Intravenous contrast was not administered. COMPARISON: Right foot x-rays May 25, 2017 FINDINGS: There is a skin ulcer at the tip of the distal phalanx of the second toe. There is underlying bony destruction of the distal phalanx that is dislocated from the distal interphalangeal joint with abno rmal bone marrow edema. There is bone marrow edema involving the entire middle phalanx and proximal phalanx with decreased signal intensity on T1 and hyperintensity on T2. There is a mildly displace d fracture through the neck of the proximal phalanx with dorsal displacement. Normal alignment of t he MTP joint and normal bone marrow signal intensity in the second metatarsal head. There is edema and swelling of the soft tissues of the great toe circumferentially with complete disruption of the flexor tendon anterior to the middle phalanx. There is synovial thickening along the flexor tendon in the more proximal forefoot in keeping with tenosynovitis. There is extensive edema in the deep muscular compartments at the plantar aspect of the foot with pr eservation of muscle architecture and there is also edema in the subcutaneous fat at the dorsum of t he forefoot. Without intravenous contrast the study does evaluate for microabscesses. There is mild bone marrow edema in the neck and shaft of the first metatarsal without bony destructi on. There is also mild bone marrow edema in the shafts of the second through fifth metatarsals and the cuneiforms without bony destruction. The remaining toes are normal. The remaining joints are anatomically aligned. The Lisfranc ligament s are intact. IMPRESSION: Skin ulcer at the tip of the distal phalanx of the second toe. Bony destruction of the distal phala nx of the second toe and bone marrow edema in the proximal and middle phalange are in keeping with c linically suspected osteomyelitis. There is a mildly displaced fracture through the neck of the pro ximal phalanx that was also seen on x-ray. Complete tear of second toe flexor tendon at the level of the middle phalanx with synovial thickenin g in keeping with the tenosynovitis extending along the tendon sheath in the more proximal forefoot. Abnormal edema in the deep muscular compartment at the plantar aspect of the foot and also in the do rsal subcutaneous fat concerning for superficial and deep soft tissue infection. Without intravenou s contrast, the study does not evaluate for enhancing microabscesses. Mild bone marrow edema in the metatarsals and cuneiforms is presumed reactive from the soft tissue changes. RPTAT: HCTS Physician Dominik Date Time Electronically viewed and signed by Claudia Loving Physician on 05/26/2017 20:02 /
[2017-05-26] MEDS: ATORVASTATIN 10 MG TAB PO SCH (21:23)
[2017-05-26] MEDS: GLUCOSE GEL 15 GRAM TUBE PO PRN ×2 (21:32→21:56)
--- NOTE | 2017-05-26 23:52 | CONS ---
Date/Time of Note Date/Time of Note DATE: 05/26/17 TIME: 23:52 Assessment/Plan Assessment/Plan Problems: (1) Cellulitis of toe of left foot Status: Acute (2) Foot pain Status: Acute (3) Diabetic neuropathy Status: Acute (4) Closed fracture of second toe of left foot Status: Acute (5) Cellulitis of right foot Status: Acute (6) Failure of outpatient treatment Status: Acute Additional Assessment/Plan Awaiting MRI of the right foot for further evaluation. Bedside drainage of pus was done. Sterile dressings applied to the right second toe. Most likely patient has osteomyelitis of the right second toe will require infectious disease recommendation for long-term IV antibiotics. I explained to the patient that it IV antibiotics and wound care does not resolve his condition and bone infection is not improved, he will require amputation of right second toe. Patient is not amenable to any type of amputation at this time. His prognosis remains guarded and his risk for limb loss is high. Patient will be followed in-house. Thank you again for your kind consultation. Consultation Date/Type/Reason Admit Date/Time May 26, 2017 at 02:03 Date of Consultation: May 26, 2017 Type of Consultation: Foot and ankle surgery Reason for Consultation Evaluation opinion on right second toe infection Hx of Present Illness Thank you very much for involving me in the care of this patient. Patient apparently has worsening infection of his right second toe and was advised by his electronics design engineer to go to the emergency room at [facility]. Patient reports that his right second toe has been getting worse for the past 6 weeks and started to have pus draining from the toe. Reports swelling and redness in his right foot as well. Patient has a history of bone infection in his feet which he claims that he healed by himself using silver Silvadene ointment. Patient denies fever and chills and denies chest pain or shortness of breath. Constitutional: improved, no complaints Eyes: no complaints ENT: no complaints Respiratory: no complaints Cardiovascular: no complaints Gastrointestinal: no complaints Genitourinary: no complaints Neurologic: no complaints Endocrine: no complaints Lymphatic: no complaints Psychological: nl mood/affect, no complaints Immunologic: no complaints Past Surgical History Past Surgical Hx: no surgical history Family History Significant Family History: no pertinent family hx Social History Smoking Status: Former smoker Exam/Review of Systems Vital Signs Vitals Vital Signs Date Time Temp Pulse Resp B/P Pulse Ox O2 Delivery O2 Flow Rate FiO2 05/26/17 19:40 98.5 74 18 174/84 99 05/26/17 04:00 Room Air Exam Patient is laying supine in bed in no acute distress. Bandages were removed from the right second toe. Right second toe is edematous with erythema and fluctuance. There is purulent drainage noted with an open wound on the distal aspect of the toe. The area is nontender to palpation and there is no foul odor present. Right foot edema noted as well. Patient has weakly palpable pedal pulses on both feet. Significant reduction noted in sensation to sharp, dull, vibratory temperature stimuli. Patient has distal left third toe dry excoriation as well. Labs and imaging reviewed. MRI is not ready at the time of the visit. Results Result Diagram: 05/25/17 2235 05/26/17 0454 Results 24 hrs Laboratory Tests Test 05/26/17 04:23 05/26/17 04:54 05/26/17 04:58 05/26/17 05:18 Bedside Glucose 56 L 113 117 Prothrombin Time 13.4 Prothrombin Time Ratio 1.0 INR International Normalized Ratio 1.02 Activated Partial Thromboplast Time 31.3 Glucose Level 113 # Test 05/26/17 09:43 05/26/17 12:54 05/26/17 13:42 05/26/17 13:44 Bedside Glucose 84 84 Hemoglobin A1c 6.1 H Erythrocyte Sedimentation Rate 32 H Test 05/26/17 17:43 05/26/17 21:22 05/26/17 21:52 05/26/17 22:14 Bedside Glucose 189 56 L 66 L 123 Test 05/26/17 22:42 Bedside Glucose 203 Medications Medications Current Medications Aspirin (Aspirin) 81 mg DAILY PO Last administered on 05/26/17 14:29; Admin Dose 81 MG; Start 05/26/17 at 09:00 Lisinopril (Zestril) 40 mg BID PO Last administered on 05/26/17 21:24; Admin Dose 40 MG; Start 05/26/17 at 09:00 Multivitamins Therapeutic (Theragran) 1 tab DAILY PO Last administered on 09:45; Admin Dose 1 TAB; Start 05/26/17 at 09:00 Verapamil HCl (Isoptin) 80 mg TID PO Last administered on 05/26/17 21:23; Admin Dose 80 MG; Start 05/26/17 at 09:00 Vitamin E (Vitamin E) 400 units DAILY PO Last administered on 05/26/17 14:29; Admin Dose 400 UNITS; Start 05/26/17 at 09:00 Atorvastatin Calcium 10 mg 10 mg DAILY@21 PO Last administered on 05/26/17 21: 23; Admin Dose 10 MG; Start 05/26/17 at 21:00 Piperacillin Sod/ Tazobactam Sod (Zosyn 3.375gm/ 100 ml (Pmx)) 100 ml @ 200 mls /hr Q8 IVPB Last administered on 05/26/17 21:34; Admin Dose 200 MLS/HR; Start 05/26/17 at 06:30 Acetaminophen (Tylenol Tab) 650 mg Q4H PRN PO pain/fever; Start 05/26/17 at 02: 00 Hydralazine HCl (Apresoline) 25 mg Q6H PRN PO sbp>160 Last administered on 05/26 16:56; Admin Dose 25 MG; Start 05/26/17 at 02:00 Hydrochlorothiazide (Hydrochlorothiazide) 25 mg DAILY PO Last administered on 09:45; Admin Dose 25 MG; Start 05/26/17 at 09:00 Carvedilol 3.125 mg 3.125 mg Q12H PO Last administered on 05/26/17 14:29; Admin Dose 3.125 MG; Start 05/26/17 at 02:00 Vancomycin HCl/ Sodium Chloride (Vancocin/NS) 250 ml @ 83.333 mls/ hr Q12H IVPB Last administered on 05/26/17 22:15; Admin Dose 83.333 MLS/HR; Start 08/02 at 09:00 Miscellaneous Information 1 ea NOTE XX ; Start 05/26/17 at 02:15 Glucose (Glutose) 15 gm Q15M PRN PO DECREASED GLUCOSE Last administered on 05/26 21:56; Admin Dose 15 GM; Start 05/26/17 at 02:15 Glucose (Glutose) 22.5 gm Q15M PRN PO DECREASED GLUCOSE; Start 05/26/17 at 02: 15 Dextrose (D50w Syringe) 25 ml Q15M PRN IV DECREASED GLUCOSE Last administered on 05/26/17 04:36; Admin Dose 25 ML; Start 05/26/17 at 02:15 Dextrose (D50w Syringe) 50 ml Q15M PRN IV DECREASED GLUCOSE; Start 05/26/17 at 02:15 Glucagon (Glucagen) 1 mg Q15M PRN IM DECREASED GLUCOSE; Start 05/26/17 at 02:15 Glucose 15 gm 15 gm Q15M PRN BUCCAL DECREASED GLUCOSE; Start 05/26/17 at 02:15 Dextrose/Sodium Chloride (D5-1/2ns) 1,000 ml @ 100 mls/hr Q10H IV Last administered on 05/26/17 21:35; Admin Dose 100 MLS/HR; Start 05/26/17 at 05:00 Insulin Glargine (Lantus) 18 unit DAILY@08 SC ; Start 05/27/17 at 08:00 Diagnostic Test (Pha) (Accu-Chek) 1 ea 02 XX ; Start 05/27/17 at 02:00 NORMAN GARCIA DPM May 26, 2017 23:52
[2017-05-27] MEDS: DEXTROSE 5%-0.45% NACL 1,000 ML IV SCH ×2 (00:37→12:41)
--- NOTE | 2017-05-27 01:18 | CONS ---
DATE OF ADMISSION: 05/26/2017 DATE OF CONSULTATION: 05/26/2017 TYPE OF CONSULTATION: Infectious Disease REASON FOR CONSULTATION: Antibiotic management. HISTORY OF PRESENT ILLNESS: Marvel Sahu is a 56-year-old male who comes in with right foot pain and is being seen for antibiotic management. His past problems include (1) diabetes with neuropathy and (2) hypertension. 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 This has been getting progressively worse over the last 6 weeks. He has been taking oral antibiotics, including Bactrim and Keflex, but to no avail. On admission, his white count was 7.3, hemoglobin 11.2, hematocrit 34.6, and platelet count of 198,000. BUN was 17 and creatinine 0.87. Foot x-ray shows complex fracture involving all phalanges of the 2nd toe, with a soft tissue injury, including bony and soft tissue with evulsion of the tuft of the distal phalanx. It is comminuted fracture fragments remaining or dislocated at the distal interphalangeal joint. There is minimally displaced intra-articular fracture of the base of the middle phalanx involving the PIP joint and there is mildly displaced fracture of the head of the proximal phalanx involving the PIP joint. Normal alignment of the MTP joint. The patient was started on vancomycin and Zosyn and will be seen by Podiatry. PAST MEDICAL AND SURGICAL HISTORY: Operations as outlined. FAMILY HISTORY: Noncontributory. SOCIAL HISTORY: He does not smoke, drink or abuse drugs. ALLERGIES: NONE TO PENICILLIN, SULFA, OR FOODS. MEDICATIONS: Per chart. REVIEW OF SYSTEMS: As per HPI. PHYSICAL EXAMINATION: GENERAL APPEARANCE: The patient is a well-developed, well- nourished male, alert, responsive, and in no acute distress. VITAL SIGNS: Stable. He is afebrile. SKIN: Without generalized rash. HEENT: Within normal limits. NECK: Supple. Lymph nodes nonpalpable. CHEST: Decreased breath sounds at the bases. HEART: Without murmur or gallop. ABDOMEN: Soft, nontender, without organosplenomegaly or masses. EXTREMITIES: Without cyanosis or clubbing. There is bilateral pedal edema. Right is much more affected than the left. The left foot, there is an area of dark discoloration over the 3rd toe. On the 2nd toe, there is area of hammertoe, but the 2nd toe is markedly swollen. GENITALIA: Exam deferred. RECTAL: Exam deferred. NEUROLOGIC: No focal neurological abnormalities. LABORATORY DATA: As noted, his white count was 7.3. BUN was 17 and creatinine 0.87. IMPRESSION AND PLAN: The patient is currently on antibiotic therapy in the form of vancomycin and Zosyn. We will continue this regimen. Podiatry should see the patient. Dictated By: Reji Eagle MD JD/luigi/leela /Document#: [id number]
[2017-05-27] MEDS: ACCU-CHEK XX SCH (01:46)
[2017-05-27] MEDS ORDERED: ACCU-CHEK XX SCH ×2 (02:00)
[2017-05-27 02:15] VITALS: BP 175/89; RESP 18
[2017-05-27] MEDS: PIPER-TAZO 3.375 GM IV (PMX) 100 ML IVPB SCH ×3 (05:37→22:24)
[2017-05-27 06:00] LABS: BASOPHIL # 0.1 10^3/ul (0.0-0.1); BASOPHILS % 0.7 % (0.0-2.0); EOSINOPHILS # 0.2 10^3/ul (0.0-0.5); EOSINOPHILS % 2.9 % (0.0-7.0); HEMATOCRIT 36.3 % (42.0-52.0); HEMOGLOBIN 12.1 g/dl (14.0-18.0); LYMPHOCYTES # 1.8 10^3/ul (0.8-2.9); LYMPHOCYTES % 26.7 % (15.0-51.0); MEAN CORPUSCULAR HEMOGLOBIN 27.8 pg (29.0-33.0); MEAN CORPUSCULAR HGB CONC 33.3 g/dl (32.0-37.0); MEAN CORPUSCULAR VOLUME 83.4 fl (82.0-101.0); MEAN PLATELET VOLUME 10.8 fl (7.4-10.4); MONOCYTE # 0.6 10^3/ul (0.3-0.9); MONOCYTES % 8.7 % (0.0-11.0); NEUTROPHIL # 4.2 10^3/ul (1.6-7.5); NEUTROPHILS % 60.7 % (39.0-77.0); PLATELET COUNT 213 10^3/UL (140-415); RED BLOOD COUNT 4.35 10^6/ul (4.70-6.10); RED CELL DISTRIBUTION WIDTH 13.2 % (11.5-14.5); WHITE BLOOD COUNT 6.9 10^3/ul (4.8-10.8)
[2017-05-27 06:19] LABS: MAGNESIUM 1.7 mg/dl (1.7-2.5); PHOSPHORUS 3.9 mg/dl (2.5-4.9)
[2017-05-27 06:39] LABS: ALBUMIN 3.7 g/dl (3.3-4.9); BILIRUBIN,INDIRECT 0.4 mg/dl (0-1.1); BILIRUBIN,TOTAL 0.4 mg/dl (0.2-1.3); CALCIUM 9.4 mg/dl (8.4-10.2); CREATININE 0.74 mg/dl (0.61-1.24); POTASSIUM 3.8 mmol/L (3.5-5.1); TOTAL PROTEIN 7.4 g/dl (6.1-8.1)
[2017-05-27 08:38] VITALS: BP 179/80; RESP 18
[2017-05-27] MEDS: ASPIRIN 81 MG TAB PO SCH (08:41)
[2017-05-27] MEDS: VITAMIN E 400 UNITS CAP PO SCH (08:41)
[2017-05-27] MEDS: MULTIVITAMINS THERAPEUTIC TAB PO SCH (08:41)
[2017-05-27] MEDS: LISINOPRIL 20 MG TAB PO SCH ×2 (08:42→20:48)
[2017-05-27] MEDS: HYDROCHLOROTHIAZIDE 25 MG TAB PO SCH (08:42)
[2017-05-27] MEDS: VERAPAMIL 80 MG TAB PO SCH ×3 (08:42→20:47)
[2017-05-27] MEDS: INSULIN ASPART [NOVOLOG] 3 ML PEN SC SCH ×4 (09:12→21:00)
[2017-05-27] MEDS: VANCOMYCIN 1.25 GM in SOD CHLORIDE 0.9% 250 ML IVPB SCH ×2 (09:15→21:26)
[2017-05-27] MEDS: INSULIN GLARGINE [LANtus] 3 ML PEN SC SCH (09:23)
--- NOTE | 2017-05-27 13:07 | PN ---
Date/Time of Note Date/Time of Note DATE: 05/27/17 TIME: 13:04 Assessment/Plan VTE Prophylaxis VTE Prophylaxis Intervention: LMWH Lines/Catheters IV [facility] Peripheral IV Assessment/Plan Assessment/Plan 56 yo male with: 1. Right Diabetic foot infection, MRI consistent with osteomyelitis of second toe and also tenosynovitis, appreciate recommendations from Dr. Chen from podiatry, recommending long-term IV antibiotics, patient not keen on surgical amputation. Blood cultures negative therefore PICC line will be ordered. Doppler left lower extremity negative for DVT Follow-up infectious disease recommendation for antibiotics, likely to depend on wound culture. Wound cultures pending 2. Diabetes mellitus: A1c of 6.1, continue current insulin regimen until discharge. Patient will resume outpatient regimen at that time. 3. Hypertension: Continue current medications, increase Coreg to 6.25 mg twice daily for better blood pressure control. 4. Hyperlipidemia : Continue statin therapy. Prophylaxis : Lovenox for DVT prophylaxis, Pepcid for GI prophylaxis. Disposition : PICC line placement, follow-up on wound cultures for antibiotic adjustments, follow-up ID recommendations, discharge planning over the weekend with home health IV antibiotics and wound care. Subjective 24 Hr Interval Summary Free Text/Dictation Patient remained stable, appreciate recommendations from Dr. Luz Wound cultures pending MRI consistent with areas of tenosynovitis and osteomyelitis, plan for PICC line placement and long-term antibiotics. 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, nl mental status, nl speech Results Result Diagram: 05/27/17 0437 05/27/17 0437 Results 24 hrs Laboratory Tests Test 05/26/17 13:42 05/26/17 13:44 05/26/17 17:43 05/26/17 21:22 Hemoglobin A1c 6.1 H Erythrocyte Sedimentation Rate 32 H Bedside Glucose 189 56 L Test 05/26/17 21:52 05/26/17 22:14 05/26/17 22:42 05/26/17 23:55 Bedside Glucose 66 L 123 203 Glucose Level 179 Test 05/27/17 01:39 05/27/17 04:37 05/27/17 09:00 05/27/17 12:40 Bedside Glucose 137 170 154 White Blood Count 6.9 Red Blood Count 4.35 L Hemoglobin 12.1 L Hematocrit 36.3 L Mean Corpuscular Volume 83.4 Mean Corpuscular Hemoglobin 27.8 L Mean Corpuscular Hemoglobin Concent 33.3 Red Cell Distribution Width 13.2 Platelet Count 213 Mean Platelet Volume 10.8 H Neutrophils % 60.7 Lymphocytes % 26.7 Monocytes % 8.7 Eosinophils % 2.9 Basophils % 0.7 Nucleated Red Blood Cells % 0.0 Neutrophils # 4.2 Lymphocytes # 1.8 Monocytes # 0.6 Eosinophils # 0.2 Basophils # 0.1 Nucleated Red Blood Cells # 0.0 Sodium Level 143 Potassium Level 3.8 Chloride Level 100 Carbon Dioxide Level 30 Anion Gap 17 H Blood Urea Nitrogen 14 Creatinine 0.74 Glucose Level 128 # Calcium Level 9.4 Phosphorus Level 3.9 Magnesium Level 1.7 Total Bilirubin 0.4 Direct Bilirubin 0.00 Indirect Bilirubin 0.4 Aspartate Amino Transf (AST/SGOT) 31 Alanine Aminotransferase (ALT/SGPT) 48 Alkaline Phosphatase 56 Total Protein 7.4 Albumin 3.7 Globulin 3.70 H Albumin/Globulin Ratio 1.00 Medications Medications Current Medications Aspirin (Aspirin) 81 mg DAILY PO Last administered on 05/27/17 08:41; Admin Dose 81 MG; Start 05/26/17 at 09:00 Lisinopril (Zestril) 40 mg BID PO Last administered on 05/27/17 08:42; Admin Dose 40 MG; Start 05/26/17 at 09:00 Multivitamins Therapeutic (Theragran) 1 tab DAILY PO Last administered on 08:41; Admin Dose 1 TAB; Start 05/26/17 at 09:00 Verapamil HCl (Isoptin) 80 mg TID PO Last administered on 05/27/17 08:42; Admin Dose 80 MG; Start 05/26/17 at 09:00 Vitamin E (Vitamin E) 400 units DAILY PO Last administered on 05/27/17 08:41; Admin Dose 400 UNITS; Start 05/26/17 at 09:00 Atorvastatin Calcium 10 mg 10 mg DAILY@21 PO Last administered on 05/26/17 21: 23; Admin Dose 10 MG; Start 05/26/17 at 21:00 Piperacillin Sod/ Tazobactam Sod (Zosyn 3.375gm/ 100 ml (Pmx)) 100 ml @ 200 mls /hr Q8 IVPB Last administered on 05/27/17 05:37; Admin Dose 200 MLS/HR; Start 05/26/17 at 06:30 Acetaminophen (Tylenol Tab) 650 mg Q4H PRN PO pain/fever; Start 05/26/17 at 02: 00 Hydralazine HCl (Apresoline) 25 mg Q6H PRN PO sbp>160 Last administered on 05/27 01:46; Admin Dose 25 MG; Start 05/26/17 at 02:00 Hydrochlorothiazide (Hydrochlorothiazide) 25 mg DAILY PO Last administered on 08:42; Admin Dose 25 MG; Start 05/26/17 at 09:00 Carvedilol 3.125 mg 3.125 mg Q12H PO Last administered on 05/27/17 01:45; Admin Dose 3.125 MG; Start 05/26/17 at 02:00 Vancomycin HCl/ Sodium Chloride (Vancocin/NS) 250 ml @ 83.333 mls/ hr Q12H IVPB Last administered on 05/27/17 09:15; Admin Dose 83.333 MLS/HR; Start 08/02 at 09:00 Miscellaneous Information 1 ea NOTE XX ; Start 05/26/17 at 02:15 Glucose (Glutose) 15 gm Q15M PRN PO DECREASED GLUCOSE Last administered on 05/26 21:56; Admin Dose 15 GM; Start 05/26/17 at 02:15 Glucose (Glutose) 22.5 gm Q15M PRN PO DECREASED GLUCOSE; Start 05/26/17 at 02: 15 Dextrose (D50w Syringe) 25 ml Q15M PRN IV DECREASED GLUCOSE Last administered on 05/26/17 04:36; Admin Dose 25 ML; Start 05/26/17 at 02:15 Dextrose (D50w Syringe) 50 ml Q15M PRN IV DECREASED GLUCOSE; Start 05/26/17 at 02:15 Glucagon (Glucagen) 1 mg Q15M PRN IM DECREASED GLUCOSE; Start 05/26/17 at 02:15 Glucose 15 gm 15 gm Q15M PRN BUCCAL DECREASED GLUCOSE; Start 05/26/17 at 02:15 Dextrose/Sodium Chloride (D5-1/2ns) 1,000 ml @ 100 mls/hr Q10H IV Last administered on 05/27/17 12:41; Admin Dose 100 MLS/HR; Start 05/26/17 at 05:00 Insulin Glargine (Lantus) 18 unit DAILY@08 SC Last administered on 05/27/17 09 :23; Admin Dose 18 UNIT; Start 05/27/17 at 08:00 Diagnostic Test (Pha) (Accu-Chek) 1 ea 02 XX Last administered on 05/27/17 01: 46; Admin Dose 1 EA; Start 05/27/17 at 02:00 Miscellaneous Information (*Rx Drug Level Order Reminder*) VANCOMYCIN TROUGH LEVEL... ONCE ONCE XX ; Start 05/27/17 at 20:00; Stop 05/27/17 at 20:01 Lidocaine (Xylocaine 1% (Mpf)) 5 ml ONCE ONCE SC ; Start 05/27/17 at 13:30; Stop 05/27/17 at 13:31; Status UNV Procedures Procedures PROCEDURE: MR right Foot. CLINICAL INDICATION: 56-year-old man. Draining pus from the right second toe. Diabetic. TECHNIQUE: 1.5 Dianna scanner: Short axis T1 and STIR, long axis T1 and STIR and sagittal T1 and STIR imaging was performed through the forefoot. Intravenous contrast was not administered. COMPARISON: Right foot x-rays May 25, 2017 FINDINGS: There is a skin ulcer at the tip of the distal phalanx of the second toe. There is underlying bony destruction of the distal phalanx that is dislocated from the distal interphalangeal joint with abnormal bone marrow edema. There is bone marrow edema involving the entire middle phalanx and proximal phalanx with decreased signal intensity on T1 and hyperintensity on T2. There is a mildly displaced fracture through the neck of the proximal phalanx with dorsal displacement. Normal alignment of the MTP joint and normal bone marrow signal intensity in the second metatarsal head. There is edema and swelling of the soft tissues of the great toe circumferentially with complete disruption of the flexor tendon anterior to the middle phalanx. There is synovial thickening along the flexor tendon in the more proximal forefoot in keeping with tenosynovitis. There is extensive edema in the deep muscular compartments at the plantar aspect of the foot with preservation of muscle architecture and there is also edema in the subcutaneous fat at the dorsum of the forefoot. Without intravenous contrast the study does evaluate for microabscesses. There is mild bone marrow edema in the neck and shaft of the first metatarsal without bony destruction. There is also mild bone marrow edema in the shafts of the second through fifth metatarsals and the cuneiforms without bony destruction. The remaining toes are normal. The remaining joints are anatomically aligned. The Lisfranc ligaments are intact. IMPRESSION: Skin ulcer at the tip of the distal phalanx of the second toe. Bony destruction of the distal phalanx of the second toe and bone marrow edema in the proximal and middle phalange are in keeping with clinically suspected osteomyelitis. There is a mildly displaced fracture through the neck of the proximal phalanx that was also seen on x-ray. Complete tear of second toe flexor tendon at the level of the middle phalanx with synovial thickening in keeping with the tenosynovitis extending along the tendon sheath in the more proximal forefoot. Abnormal edema in the deep muscular compartment at the plantar aspect of the foot and also in the dorsal subcutaneous fat concerning for superficial and deep soft tissue infection. Without intravenous contrast, the study does not evaluate for enhancing microabscesses. Mild bone marrow edema in the metatarsals and cuneiforms is presumed reactive from the soft tissue changes. RPTAT: HCTS Physician Dominik Date Time Electronically viewed and signed by Physician Dominik on 05/26/2017 20: 02 PROCEDURE: US right lower extremity venous Doppler CLINICAL INDICATION: Right leg swelling TECHNIQUE: Multiple sonographic images of the right lower extremity deep venous system was obtained utilizing grayscale, color-flow, compressive sonography and Doppler imaging with augmentation. COMPARISON: No pertinent prior examinations were submitted for comparison. FINDINGS: There is normal compressibility and flow within the right common femoral, superficial femoral, popliteal, and peroneal veins. IMPRESSION: No sonographic evidence for deep venous thrombosis. RPTAT: HIKT .Miguel Lechuga MD, MD Date Time Electronically viewed and signed by .Miguel Lechuga MD, MD on 05/26/2017 02:32 .T/ CC: BAN BENITEZ MD, N'DEYE F May 27, 2017 13:07
[2017-05-27] MEDS ORDERED: LIDOCAINE 1% (MPF) 5 ML VIAL SC ONE (13:30)
[2017-05-27 14:00] VITALS: BP 173/82; RESP 18
[2017-05-27] MEDS: ENOXAPARIN 40 MG/0.4 ML SYG SC SCH (15:05)
--- NOTE | 2017-05-27 16:24 | RADRPT ---
PROCEDURE: XR Chest. CLINICAL INDICATION: Check PICC line position. TECHNIQUE: Single frontal view. COMPARISON: No prior study is available for comparison. FINDINGS: There is a left arm PICC line with the tip in the lower superior vena cava. The lungs are clear. The heart size is normal. There is no pleural effusion or pneumothorax. There is right shoulder calcific tendonitis. IMPRESSION: 1. Left arm PICC line tip in satisfactory position. 2. Right shoulder calcific tendonitis. 3. Otherwise normal chest radiograph. RPTAT: QQ .Mo Hess MD, MD Date Time Electronically viewed and signed by .Mo Hess MD, MD on 05/27/2017 16:24 .R/
--- NOTE | 2017-05-27 16:32 | RADRPT ---
PROCEDURE: Ultrasound guidance for placement of needle in left upper extremity vein. CLINICAL INDICATION: Venous access. TECHNIQUE: Limited sonography of the left upper extremity was performed. Ultrasound images were recorded and s tored in the patient's medical record. COMPARISON: None. FINDINGS: The ultrasound images demonstrate a patent left upper extremity vein. The PICC line was inserted by the PICC line nurse. IMPRESSION: 1. Ultrasound guidance for a needle placement in a left upper extremity vein. 2. The left upper extremity vein is patent. RPTAT: QQ .Mo Hess MD, MD Date Time Electronically viewed and signed by .Mo Hess MD, MD on 05/27/2017 16:31 .R/
[2017-05-27] MEDS: ATORVASTATIN 10 MG TAB PO SCH (20:47)
--- NOTE | 2017-05-27 21:31 | CONS ---
Date/Time of Note Date/Time of Note DATE: 05/27/17 TIME: 21:15 Assessment/Plan Assessment/Plan Chief Complaint/Hosp Course ID PROGRESS NOTE CURRENT ABX: =>Vanco IV #2 + Zosyn #2 24H INTERVAL SUMMARY * A/A/O, no fevers, VSS, right foot/toe pain is under control, no complaints offered * 05/26/17 Wound Cx. WOUND CULTURE Preliminary No growth after 1 day * MRI foot IMPRESSION: * 05/26/17 MRI FOOT: * Skin ulcer at the tip of the distal phalanx of the second toe. Bony destruction of the distal phalanx of the second toe and bone marrow edema in the proximal and middle phalange are in keeping with clinically suspected osteomyelitis. There is a mildly displaced fracture through the neck of the proximal phalanx that was also seen on x-ray. * Complete tear of second toe flexor tendon at the level of the middle phalanx with synovial thickening in keeping with the tenosynovitis extending along the tendon sheath in the more proximal forefoot. * Abnormal edema in the deep muscular compartment at the plantar aspect of the foot and also in the dorsal subcutaneous fat concerning for superficial and deep soft tissue infection. Without intravenous contrast, the study does not evaluate for enhancing microabscesses. Mild bone marrow edema in the metatarsals and cuneiforms is presumed reactive from the soft tissue changes. * LABS 05/27/17 0437 05/27/17 0437 PHYSICAL EXAMINATION: GENERAL: A/A/O, VSS HEENT: Unremarkable NECK: Supple CHEST: Equal chest rise bilaterally, without dyspnea on observation HEART: Pulse RRR ABDOMEN: Soft EXTREMITIES: Warm, R>L lower extremity edema, right foot DSG C/D/I SKIN: Warm, dry ID ASSESSMENT: 56 yo M admit with: 1. SIRS w/TMax 99.2, ESR 32, 2. Diabetic foot cellulitis with 2nd toe ulcer, 2nd digit osteomyelitis, tenosynovitis extending along the tendon sheath in the more proximal forefoot + Myositis. 3. Hx of closed fracture right 2nd digit 4. Failed outpatient treatment 5. BLEXT edema => Right, much greater than left, leg swelling. * Venous US: (-) BLEXT DVT 6. DMT2 w/suspected complication of DM peripheral neuropathy 7. Hypertension 8. HLD INVASIVES: *LUEXT PICC (05/27/17) ABX ALLERGIES: NKDA CURRENT ABX: =>Vanco IV #2 + Zosyn #2 ID RECOMMENDATIONS: 1. Continue current ABX 2. Await final wound cx results & adjust ABX per final sensitivities 3. Swab nares for MRSA 4. If all micro negative, may DC home to RN ABX Rx via PICC Line with: * Vancomycin IV w/continued dose per pharmacy for total 42 days tx osteomyelitis /complicated right DM foot infection, failed OP treatment * Levaquin 500mg PO daily x 42 days Problems: Consultation Date/Type/Reason Admit Date/Time May 26, 2017 at 02:03 Initial Consult Date 05/26/17 Type of Consultation: ID Exam/Review of Systems Vital Signs Vitals Vital Signs Date Time Temp Pulse Resp B/P Pulse Ox O2 Delivery O2 Flow Rate FiO2 05/27/17 14:00 98.0 65 18 173/82 100 05/26/17 04:00 Room Air Intake and Output 05/26/17 05/26/17 05/27/17 15:00 23:00 07:00 Intake Total 250 ml 1900 ml 1950 ml Output Total 3100 ml 2200 ml Balance 250 ml -1200 ml -250 ml Results Result Diagram: 05/27/17 0437 05/27/17 0437 Results 24 hrs Laboratory Tests Test 05/26/17 21:22 05/26/17 21:52 05/26/17 22:14 05/26/17 22:42 Bedside Glucose 56 L 66 L 123 203 Test 05/26/17 23:55 05/27/17 01:39 05/27/17 04:37 05/27/17 09:00 Glucose Level 179 128 # Bedside Glucose 137 170 White Blood Count 6.9 Red Blood Count 4.35 L Hemoglobin 12.1 L Hematocrit 36.3 L Mean Corpuscular Volume 83.4 Mean Corpuscular Hemoglobin 27.8 L Mean Corpuscular Hemoglobin Concent 33.3 Red Cell Distribution Width 13.2 Platelet Count 213 Mean Platelet Volume 10.8 H Neutrophils % 60.7 Lymphocytes % 26.7 Monocytes % 8.7 Eosinophils % 2.9 Basophils % 0.7 Nucleated Red Blood Cells % 0.0 Neutrophils # 4.2 Lymphocytes # 1.8 Monocytes # 0.6 Eosinophils # 0.2 Basophils # 0.1 Nucleated Red Blood Cells # 0.0 Sodium Level 143 Potassium Level 3.8 Chloride Level 100 Carbon Dioxide Level 30 Anion Gap 17 H Blood Urea Nitrogen 14 Creatinine 0.74 Calcium Level 9.4 Phosphorus Level 3.9 Magnesium Level 1.7 Total Bilirubin 0.4 Direct Bilirubin 0.00 Indirect Bilirubin 0.4 Aspartate Amino Transf (AST/SGOT) 31 Alanine Aminotransferase (ALT/SGPT) 48 Alkaline Phosphatase 56 Total Protein 7.4 Albumin 3.7 Globulin 3.70 H Albumin/Globulin Ratio 1.00 Test 05/27/17 12:40 05/27/17 18:11 05/27/17 20:46 Bedside Glucose 154 99 150 Medications Medications Current Medications Aspirin (Aspirin) 81 mg DAILY PO Last administered on 05/27/17 08:41; Admin Dose 81 MG; Start 05/26/17 at 09:00 Lisinopril (Zestril) 40 mg BID PO Last administered on 05/27/17 20:48; Admin Dose 40 MG; Start 05/26/17 at 09:00 Multivitamins Therapeutic (Theragran) 1 tab DAILY PO Last administered on 08:41; Admin Dose 1 TAB; Start 05/26/17 at 09:00 Verapamil HCl (Isoptin) 80 mg TID PO Last administered on 05/27/17 20:47; Admin Dose 80 MG; Start 05/26/17 at 09:00 Vitamin E (Vitamin E) 400 units DAILY PO Last administered on 05/27/17 08:41; Admin Dose 400 UNITS; Start 05/26/17 at 09:00 Atorvastatin Calcium 10 mg 10 mg DAILY@21 PO Last administered on 05/27/17 20: 47; Admin Dose 10 MG; Start 05/26/17 at 21:00 Piperacillin Sod/ Tazobactam Sod (Zosyn 3.375gm/ 100 ml (Pmx)) 100 ml @ 200 mls /hr Q8 IVPB Last administered on 05/27/17 14:51; Admin Dose 200 MLS/HR; Start 05/26/17 at 06:30 Acetaminophen (Tylenol Tab) 650 mg Q4H PRN PO pain/fever; Start 05/26/17 at 02: 00 Hydralazine HCl (Apresoline) 25 mg Q6H PRN PO sbp>160 Last administered on 05/27 01:46; Admin Dose 25 MG; Start 05/26/17 at 02:00 Hydrochlorothiazide 25 mg 25 mg DAILY PO Last administered on 05/27/17 08:42; Admin Dose 25 MG; Start 05/26/17 at 09:00 Vancomycin HCl/ Sodium Chloride (Vancocin/NS) 250 ml @ 83.333 mls/ hr Q12H IVPB Last administered on 05/27/17 09:15; Admin Dose 83.333 MLS/HR; Start 08/02 at 09:00 Miscellaneous Information 1 ea NOTE XX ; Start 05/26/17 at 02:15 Glucose (Glutose) 15 gm Q15M PRN PO DECREASED GLUCOSE Last administered on 05/26 21:56; Admin Dose 15 GM; Start 05/26/17 at 02:15 Glucose (Glutose) 22.5 gm Q15M PRN PO DECREASED GLUCOSE; Start 05/26/17 at 02: 15 Dextrose (D50w Syringe) 25 ml Q15M PRN IV DECREASED GLUCOSE Last administered on 05/26/17 04:36; Admin Dose 25 ML; Start 05/26/17 at 02:15 Dextrose (D50w Syringe) 50 ml Q15M PRN IV DECREASED GLUCOSE; Start 05/26/17 at 02:15 Glucagon (Glucagen) 1 mg Q15M PRN IM DECREASED GLUCOSE; Start 05/26/17 at 02:15 Glucose (Glutose) 15 gm Q15M PRN BUCCAL DECREASED GLUCOSE; Start 05/26/17 at 02 :15 Insulin Glargine (Lantus) 18 unit DAILY@08 SC Last administered on 05/27/17 09 :23; Admin Dose 18 UNIT; Start 05/27/17 at 08:00 Diagnostic Test (Pha) (Accu-Chek) 1 ea 02 XX Last administered on 05/27/17 01: 46; Admin Dose 1 EA; Start 05/27/17 at 02:00 Carvedilol (Coreg) 6.25 mg Q12 PO Last administered on 05/27/17 20:48; Admin Dose 6.25 MG; Start 05/27/17 at 14:00 Enoxaparin Sodium (Lovenox) 40 mg DAILY SC Last administered on 05/27/17 15:05 ; Admin Dose 40 MG; Start 05/27/17 at 14:00 IV Flush (NS 10 ml) 10 ml PRN PRN IV IV PROTOCOL; Start 05/27/17 at 17:00 MONIQUE FRANKLIN NP May 27, 2017 21:25
[2017-05-28] MEDS: ACCU-CHEK XX SCH ×2 (02:00→21:12)
[2017-05-28 02:25] VITALS: BP 162/79; RESP 18
[2017-05-28 05:00] LABS: BASOPHIL # 0.1 10^3/ul (0.0-0.1); BASOPHILS % 0.6 % (0.0-2.0); EOSINOPHILS # 0.2 10^3/ul (0.0-0.5); EOSINOPHILS % 2.6 % (0.0-7.0); HEMATOCRIT 34.6 % (42.0-52.0); HEMOGLOBIN 11.5 g/dl (14.0-18.0); LYMPHOCYTES % 22.7 % (15.0-51.0); MEAN CORPUSCULAR HEMOGLOBIN 27.5 pg (29.0-33.0); MEAN CORPUSCULAR HGB CONC 33.2 g/dl (32.0-37.0); MEAN CORPUSCULAR VOLUME 82.8 fl (82.0-101.0); MEAN PLATELET VOLUME 10.8 fl (7.4-10.4); MONOCYTE # 0.8 10^3/ul (0.3-0.9); MONOCYTES % 8.9 % (0.0-11.0); NEUTROPHIL # 5.6 10^3/ul (1.6-7.5); PLATELET COUNT 217 10^3/UL (140-415); RED BLOOD COUNT 4.18 10^6/ul (4.70-6.10); RED CELL DISTRIBUTION WIDTH 13.2 % (11.5-14.5); WHITE BLOOD COUNT 8.6 10^3/ul (4.8-10.8)
[2017-05-28 05:19] LABS: MAGNESIUM 1.6 mg/dl (1.7-2.5); PHOSPHORUS 4.1 mg/dl (2.5-4.9)
[2017-05-28 05:21] LABS: CALCIUM 9.4 mg/dl (8.4-10.2); CREATININE 0.78 mg/dl (0.61-1.24); POTASSIUM 3.6 mmol/L (3.5-5.1)
[2017-05-28] MEDS: PIPER-TAZO 3.375 GM IV (PMX) 100 ML IVPB SCH (05:22)
[2017-05-28 07:00] VITALS: BP 172/91; RESP 18
[2017-05-28] MEDS: INSULIN ASPART [NOVOLOG] 3 ML PEN SC SCH ×4 (07:50→21:00)
[2017-05-28] MEDS ORDERED: VANCOMYCIN 1.5 GM in SOD CHLORIDE 0.9% 250 ML IVPB SCH (09:00)
[2017-05-28] MEDS: ASPIRIN 81 MG TAB PO SCH (09:31)
[2017-05-28] MEDS: MULTIVITAMINS THERAPEUTIC TAB PO SCH (09:31)
[2017-05-28] MEDS: VERAPAMIL 80 MG TAB PO SCH ×3 (09:32→20:14)
[2017-05-28] MEDS: HYDROCHLOROTHIAZIDE 25 MG TAB PO SCH (09:32)
[2017-05-28] MEDS: VITAMIN E 400 UNITS CAP PO SCH (09:34)
[2017-05-28] MEDS: LISINOPRIL 20 MG TAB PO SCH ×2 (09:34→20:13)
[2017-05-28] MEDS: ENOXAPARIN 40 MG/0.4 ML SYG SC SCH (09:43)
[2017-05-28] MEDS: INSULIN GLARGINE [LANtus] 3 ML PEN SC SCH (09:50)
--- NOTE | 2017-05-28 10:25 | PN ---
Date/Time of Note Date/Time of Note DATE: 05/28/17 TIME: 10:25 Assessment/Plan VTE Prophylaxis VTE Prophylaxis Intervention: ambulation, SCD's Lines/Catheters IV Catheter Type (from Nrsg): PICC Line Central line still needed: Yes (For IV antibiotics, long-term) Assessment/Plan Assessment/Plan 56 yo male with: 1. Right Diabetic foot infection, MRI consistent with osteomyelitis of second toe, myositis and also tenosynovitis, appreciate recommendations from Dr. Luz , podiatry, recommending long-term IV antibiotics, patient not keen on surgical amputation. Blood cultures negative therefore PICC line will be ordered. Doppler left lower extremity negative for DVT Appreciate infectious disease recommendations for antibiotics, Wound cultures NGTD therefore we will plan on discharging home tomorrow with home health for wound care but also IV antibiotics. 2. Diabetes mellitus: A1c of 6.1, continue current insulin regimen until discharge. Patient will resume outpatient regimen at that time. 3. Hypertension: Continue current medications, blood pressure better controlled with increased dose of Coreg to 6.25 mg twice daily. 4. Hyperlipidemia : Continue statin therapy. Prophylaxis : Lovenox for DVT prophylaxis, Pepcid for GI prophylaxis. Disposition : s/p PICC line placement, so far plan for discharge home tomorrow and IV vancomycin and oral Levaquin for 42 days per infectious disease recommendations. Subjective 24 Hr Interval Summary Free Text/Dictation Patient doing well, wound cultures no growth today, appreciate recommendations from infectious disease. Plan for discharge home tomorrow on Levaquin p.o. and vancomycin twice daily IV through PICC line unless cultures grow anything in the next 24 hours. Patient will have to follow-up with podiatry as an outpatient. Again he is declining/refusing any type of surgical amputation. Exam/Review of Systems Vital Signs Vitals Vital Signs Date Time Temp Pulse Resp B/P Pulse Ox O2 Delivery O2 Flow Rate FiO2 05/28/17 07:00 98.8 70 18 172/91 97 05/26/17 04:00 Room Air Intake and Output 05/27/17 05/27/17 05/28/17 15:00 23:00 07:00 Intake Total 570 ml 1800 ml 1150 ml Output Total 1800 ml 1250 ml Balance 570 ml 0 ml -100 ml Exam Constitutional: alert, oriented, well developed Respiratory: clear to auscultation, normal air movement Cardiovascular: nl pulses, regular rate and rhythm Gastrointestinal: non-tender, soft Musculoskeletal: nl gait and stance, other (Right forefoot with dressing in place, no edema or erythema noted) Extremities: normal pulses, other (No edema, clubbing or cyanosis) Neurological: SUPERVISORY EXAMINER II-XII intact, nl mental status, nl speech, nl strength Results Result Diagram: 05/28/174 05/28/17 0424 Results 24 hrs Laboratory Tests Test 05/27/17 12:40 05/27/17 18:11 05/27/17 20:13 05/27/17 20:46 Bedside Glucose 154 99 150 Vancomycin Level Trough 8.3 L Test 05/28/17 04:20 05/28/17 04:24 05/28/17 08:38 Triglycerides Level 76 Cholesterol Level 130 LDL Cholesterol, Calculated 53 HDL Cholesterol 62 Cholesterol/HDL Ratio 2.0 White Blood Count 8.6 # Red Blood Count 4.18 L Hemoglobin 11.5 L Hematocrit 34.6 L Mean Corpuscular Volume 82.8 Mean Corpuscular Hemoglobin 27.5 L Mean Corpuscular Hemoglobin Concent 33.2 Red Cell Distribution Width 13.2 Platelet Count 217 Mean Platelet Volume 10.8 H Neutrophils % 65.0 Lymphocytes % 22.7 Monocytes % 8.9 Eosinophils % 2.6 Basophils % 0.6 Nucleated Red Blood Cells % 0.0 Neutrophils # 5.6 Lymphocytes # 2.0 Monocytes # 0.8 Eosinophils # 0.2 Basophils # 0.1 Nucleated Red Blood Cells # 0.0 Sodium Level 142 Potassium Level 3.6 Chloride Level 99 Carbon Dioxide Level 31 Anion Gap 16 Blood Urea Nitrogen 16 Creatinine 0.78 Glucose Level 123 Calcium Level 9.4 Phosphorus Level 4.1 Magnesium Level 1.6 L Bedside Glucose 139 Medications Medications Current Medications Aspirin (Aspirin) 81 mg DAILY PO Last administered on 05/28/17 09:31; Admin Dose 81 MG; Start 05/26/17 at 09:00 Lisinopril (Zestril) 40 mg BID PO Last administered on 05/28/17 09:34; Admin Dose 40 MG; Start 05/26/17 at 09:00 Multivitamins Therapeutic (Theragran) 1 tab DAILY PO Last administered on 09:31; Admin Dose 1 TAB; Start 05/26/17 at 09:00 Verapamil HCl (Isoptin) 80 mg TID PO Last administered on 05/28/17 09:32; Admin Dose 80 MG; Start 05/26/17 at 09:00 Vitamin E (Vitamin E) 400 units DAILY PO Last administered on 05/28/17 09:34; Admin Dose 400 UNITS; Start 05/26/17 at 09:00 Atorvastatin Calcium 10 mg 10 mg DAILY@21 PO Last administered on 05/27/17 20: 47; Admin Dose 10 MG; Start 05/26/17 at 21:00 Piperacillin Sod/ Tazobactam Sod (Zosyn 3.375gm/ 100 ml (Pmx)) 100 ml @ 200 mls /hr Q8 IVPB Last administered on 05/28/17 05:22; Admin Dose 200 MLS/HR; Start 05/26/17 at 06:30 Acetaminophen (Tylenol Tab) 650 mg Q4H PRN PO pain/fever; Start 05/26/17 at 02: 00 Hydralazine HCl (Apresoline) 25 mg Q6H PRN PO sbp>160 Last administered on 05/28 04:42; Admin Dose 25 MG; Start 05/26/17 at 02:00 Hydrochlorothiazide (Hydrochlorothiazide) 25 mg DAILY PO Last administered on 09:32; Admin Dose 25 MG; Start 05/26/17 at 09:00 Miscellaneous Information 1 ea NOTE XX ; Start 05/26/17 at 02:15 Glucose (Glutose) 15 gm Q15M PRN PO DECREASED GLUCOSE Last administered on 05/26 21:56; Admin Dose 15 GM; Start 05/26/17 at 02:15 Glucose (Glutose) 22.5 gm Q15M PRN PO DECREASED GLUCOSE; Start 05/26/17 at 02: 15 Dextrose (D50w Syringe) 25 ml Q15M PRN IV DECREASED GLUCOSE Last administered on 05/26/17 04:36; Admin Dose 25 ML; Start 05/26/17 at 02:15 Dextrose (D50w Syringe) 50 ml Q15M PRN IV DECREASED GLUCOSE; Start 05/26/17 at 02:15 Glucagon (Glucagen) 1 mg Q15M PRN IM DECREASED GLUCOSE; Start 05/26/17 at 02:15 Glucose (Glutose) 15 gm Q15M PRN BUCCAL DECREASED GLUCOSE; Start 05/26/17 at 02 :15 Insulin Glargine (Lantus) 18 unit DAILY@08 SC Last administered on 05/28/17 09 :50; Admin Dose 18 UNIT; Start 05/27/17 at 08:00 Diagnostic Test (Pha) (Accu-Chek) 1 ea 02 XX Last administered on 05/27/17 01: 46; Admin Dose 1 EA; Start 05/27/17 at 02:00 Carvedilol (Coreg) 6.25 mg Q12 PO Last administered on 05/28/17 09:32; Admin Dose 6.25 MG; Start 05/27/17 at 14:00 Enoxaparin Sodium (Lovenox) 40 mg DAILY SC Last administered on 05/28/17 09:43 ; Admin Dose 40 MG; Start 05/27/17 at 14:00 IV Flush 10 ml 10 ml PRN PRN IV IV PROTOCOL; Start 05/27/17 at 17:00 Vancomycin HCl 1.5 gm/Sodium Chloride 250 ml @ 83.333 mls/ hr Q12H IVPB Last administered on 05/28/17 09:36; Admin Dose 83.333 MLS/HR; Start 05/28/17 at 09: 00; Stop 05/28/17 at 14:00 Vancomycin HCl/ Sodium Chloride (Vancocin/NS) 500 ml @ 125 mls/hr Q12H IVPB ; Start 05/28/17 at 18:00 LORENA WATKINS May 28, 2017 10:25
[2017-05-28] MEDS ORDERED: MAGNESIUM SULFATE 2 GM/50 ML 50 ML IVPB ONE (11:00)
--- NOTE | 2017-05-28 11:12 | RADRPT ---
Echocardiogram Report Patient Name: BECKIE TONEY Gender: Male Date: 1960 Study Date: 26-May-2017 Sdv Pilot/Navigator/Dds Operator: Blanka Nielsen [facility] Location: [id number] Ref. Physician: BAN BENITEZ Quality: Good Procedures: Transthoracic echocardiogram with complete 2D, M-Mode, and doppler examination. Indications: leg Edema. 2D/M Mode Doppler Measurement Value Normal Ranges Measurement Value Normal Ranges LVIDd 2D 5.5 3.5 - 5.6 cm AV Peak Neal 1.6 m/sec LVIDs 2D 4.4 2.1 - 4.1 cm AV Peak PG 10.3 mmHg LVPWd 2D 0.9 0.6 - 1.1 cm LVOT Peak Neal 1.0 m/sec IVSd 2D 0.9 0.6 - 1.1 cm LVOT Peak PG 4.2 mmHg AoR Diam 2D 2.9 2.0 - 3.7 cm MV E Peak Neal 0.8 m/sec EDV 2D 147.8 cm3 MV A Peak Neal 0.7 m/sec ESV 2D 83.3 cm3 MV E/A 1.2 LA Dimen 2D 3.3 2.3 - 4.0 cm MV Decel Time 128 msec MV Decel Amite 6 MV E/A 1.2 TR Peak Neal 2.3 m/sec TR Peak PG 20.8 mmHg RVSP 29.0 mmHg Findings Left Ventricle: Lower limits of normal systolic function. Normal left ventricular cavity size. Normal left ventricular wall thickness. Ejection fraction is visually estimated at 50 %. Tissue Doppler/Mitral Doppler indices are within normal limits. Right Ventricle: Normal right ventricular size. Normal right ventricular systolic function. Left Atrium: The left atrium is normal in size. Right Atrium: The right atrium is normal in size. Mitral Valve: Mitral valve leaflets appear mildly thickened. Mild mitral annular calcification. Trace mitral regurgitation. Aortic Valve: Normal appearance of the aortic valve. No significant aortic stenosis or insufficiency. Tricuspid Valve: Normal appearance of the tricuspid valve. Estimated peak PA systolic pressure 29 mmHg. There is trace tricuspid regurgitation. Pulmonic Valve: Normal pulmonic valve appearance. There is trace pulmonic regurgitation. Pericardium: Normal pericardium with no significant pericardial effusion. Aorta: Normal aortic root. IVC: Dilated IVC with respiratory collapse consistent with elevated right atrial pressure. Conclusions 1.Lower limits of normal systolic function. Normal left ventricular cavity size. Normal left ventricular wall thickness. Ejection fraction is visually estimated at 50 %. Tissue Doppler/Mitral Doppler indices are within normal limits. 2.Normal right ventricular size. Normal right ventricular systolic function. 3.The left atrium is normal in size. 4.The right atrium is normal in size. 5.Mitral valve leaflets appear mildly thickened. Mild mitral annular calcification. Trace mitral regurgitation. 6.Normal appearance of the aortic valve. No significant aortic stenosis or insufficiency. 7.Normal appearance of the tricuspid valve. Estimated peak PA systolic pressure 29 mmHg. There is trace tricuspid regurgitation. 8.Dilated IVC with respiratory collapse consistent with elevated right atrial pressure. Electronically Signed By: Dayo Be 28-May-2017 11:11:45 -0700 Patient Name: BECKIE TONEY Study Date: 26-May-2017 [id number]
[2017-05-28 14:00] VITALS: BP 166/79; RESP 20
[2017-05-28] MEDS: VANCOMYCIN 1.75 GM in NS 500 ML IVPB SCH (17:48)
[2017-05-28 20:00] VITALS: BP 182/84; RESP 20
[2017-05-28] MEDS: ATORVASTATIN 10 MG TAB PO SCH (20:14)
--- NOTE | 2017-05-28 20:41 | PN ---
DATE: 05/28/2012 SUBJECTIVE DATA: No acute changes. The patient is alert, looks comfortable. No fevers. WBC 8.6, no shift, no bands, BUN 16, creatinine 0.78. Blood cultures remain negative. Wound culture preliminary negative. Indwelling: Left upper extremity PICC line. Antimicrobials: Vancomycin, Zosyn. PHYSICAL EXAMINATION: GENERAL: Well developed, middle-aged man, who is alert, in no distress. HEENT: Head is atraumatic, normocephalic. Sclerae anicteric. Buccal mucosa dry. NECK: Supple. CHEST: Chest rise symmetrical. Breath sounds are clear. HEART: S1, S2. ABDOMEN: Soft, bowel sounds present. EXTREMITIES: Right foot, 2nd and great toe dressing intact. Left foot, some necrotic changes of the toes. ASSESSMENT: 1. Right diabetic foot ulcer with 2nd toe osteomyelitis as per MRI. 2. Diabetes. 3. Hypertension. 4. Diabetic neuropathy. PLAN: The patient remains stable. Will treat with antibiotics for 6 weeks. F/u podiatry rec-s. Change Zosyn to PO Levaquin Dictated By: Ragini Hernandez NP /luigi/bjc /Document#: [id number] MTDD
[2017-05-29 01:46] VITALS: BP 171/85; RESP 20
[2017-05-29 04:20] VITALS: BP 163/79; RESP 20
[2017-05-29] MEDS: VANCOMYCIN 1.75 GM in NS 500 ML IVPB SCH ×2 (05:06→14:28)
[2017-05-29 05:17] LABS: CALCIUM 9.5 mg/dl (8.4-10.2); CREATININE 0.77 mg/dl (0.61-1.24); POTASSIUM 3.5 mmol/L (3.5-5.1)
[2017-05-29] MEDS ORDERED: LEVOFLOXACIN 500 MG TAB PO SCH (06:00)
[2017-05-29 07:30] VITALS: BP 191/93; RESP 19
[2017-05-29] MEDS: INSULIN ASPART [NOVOLOG] 3 ML PEN SC SCH ×3 (07:50→17:41)
[2017-05-29] MEDS: ASPIRIN 81 MG TAB PO SCH (08:26)
[2017-05-29] MEDS: HYDROCHLOROTHIAZIDE 25 MG TAB PO SCH (08:28)
[2017-05-29] MEDS: VERAPAMIL 80 MG TAB PO SCH ×2 (08:28→12:55)
[2017-05-29] MEDS: MULTIVITAMINS THERAPEUTIC TAB PO SCH (08:28)
[2017-05-29] MEDS: LISINOPRIL 20 MG TAB PO SCH (08:29)
[2017-05-29] MEDS: ENOXAPARIN 40 MG/0.4 ML SYG SC SCH (08:39)
[2017-05-29] MEDS: VITAMIN E 400 UNITS CAP PO SCH (08:42)
[2017-05-29] MEDS: INSULIN GLARGINE [LANtus] 3 ML PEN SC SCH (08:51)
--- NOTE | 2017-05-29 09:17 | PDOCDIS ---
Discharge Instructions CONDITION Patient Condition: Stable HOME CARE INSTRUCTIONS: Special Diet: consistent carb controlled ACTIVITY: Activity Restrictions: Partial Weight Bearing Activity Restrictions Comment: right LE FOLLOW UP/APPOINTMENTS Follow-up Plan Follow up with Podiatry within 1 to 2 weeks Follow up with PCP within 1 week Follow up with Home health RN for wound care Follow up with Home Health for IV antibiotics SCHOOL/WORK RELEASE May return to School/Work on: Jun 27, 2017 LORENA WATKINS May 29, 2017 09:17
[2017-05-29] MEDS ORDERED: [UNRECOGNIZED DRUG - CODE] IVPB (09:21)
[2017-05-29] MEDS ORDERED: LEVO500T72 PO (09:21)
[2017-05-29] MEDS ORDERED: CARV6.2579 PO (09:21)
--- NOTE | 2017-05-29 11:15 | PN ---
Date/Time of Note Date/Time of Note DATE: 05/29/17 TIME: 11:12 Assessment/Plan VTE Prophylaxis VTE Prophylaxis Intervention: SCD's Lines/Catheters IV Catheter Type (from Nrs): PICC Line Central line still needed: Yes (For IV antibiotic long-term) Urinary Cath still in place: No Assessment/Plan Assessment/Plan 56 yo male with: 1. Right Diabetic foot infection, MRI consistent with osteomyelitis of second toe, myositis and also tenosynovitis, appreciate recommendations from Dr. Luz , podiatry, recommending long-term IV antibiotics, patient not keen on surgical amputation. S/p PICC line placement. Doppler left lower extremity negative for DVT Appreciate infectious disease recommendations for antibiotics x 6 weeks Wound cultures NGTD therefore we will be discharging home today with IV antibiotics for 6 weeks. 2. Diabetes mellitus: A1c of 6.1, Resume outpatient regimen at that time. 3. Hypertension: Continue current medications, blood pressure better controlled with increased dose of Coreg to 6.25 mg twice daily. 4. Hyperlipidemia : Continue statin therapy. Prophylaxis : Lovenox for DVT prophylaxis, Pepcid for GI prophylaxis. Disposition : s/p PICC line placement, discharge home today with IV vancomycin and oral Levaquin for 42 days per infectious disease recommendations. Subjective 24 Hr Interval Summary Free Text/Dictation Patient doing well, he remained stable, no signs of cellulitis on the right lower extremity. Appreciate recommendations from both podiatry and infectious disease, patient needs IV vancomycin and oral Levaquin for 6 weeks treatment given findings of osteomyelitis, myositis, tenosynovitis of the right foot/ forefoot. Exam/Review of Systems Vital Signs Vitals Vital Signs Date Time Temp Pulse Resp B/P Pulse Ox O2 Delivery O2 Flow Rate FiO2 05/29/17 07:30 98.7 73 19 191/93 98 05/26/17 04:00 Room Air Intake and Output 05/28/17 05/28/17 05/29/17 15:00 23:00 07:00 Intake Total 300 ml 3000 ml 850 ml Output Total 2800 ml 1650 ml Balance 300 ml 200 ml -800 ml Exam Constitutional: alert, oriented, well developed Respiratory: clear to auscultation, normal air movement Cardiovascular: nl pulses, regular rate and rhythm Gastrointestinal: non-tender, soft Musculoskeletal: nl gait and stance, other (Right foot with dressing on for fluid, no erythema or edema of the foot.) Extremities: normal pulses Neurological: ACCOUNT DEVELOPER II-XII intact, nl mental status, nl speech, nl strength Results Result Diagram: 05/28/17 0424 05/29/17 0438 Results 24 hrs Laboratory Tests Test 05/28/17 12:55 05/28/17 17:47 05/28/17 20:22 05/29/17 04:38 Bedside Glucose 210 124 166 Sodium Level 143 Potassium Level 3.5 Chloride Level 99 Carbon Dioxide Level 31 Anion Gap 17 H Blood Urea Nitrogen 18 Creatinine 0.77 Glucose Level 134 Calcium Level 9.5 Test 05/29/17 04:39 05/29/17 08:47 Magnesium Level 1.9 Bedside Glucose 129 Medications Medications Current Medications Aspirin (Aspirin) 81 mg DAILY PO Last administered on 05/29/17 08:26; Admin Dose 81 MG; Start 05/26/17 at 09:00 Lisinopril (Zestril) 40 mg BID PO Last administered on 05/29/17 08:29; Admin Dose 40 MG; Start 05/26/17 at 09:00 Multivitamins Therapeutic (Theragran) 1 tab DAILY PO Last administered on 08:28; Admin Dose 1 TAB; Start 05/26/17 at 09:00 Verapamil HCl (Isoptin) 80 mg TID PO Last administered on 05/29/17 08:28; Admin Dose 80 MG; Start 05/26/17 at 09:00 Vitamin E (Vitamin E) 400 units DAILY PO Last administered on 05/29/17 08:42; Admin Dose 400 UNITS; Start 05/26/17 at 09:00 Atorvastatin Calcium (Lipitor) 10 mg DAILY@21 PO Last administered on 20:14; Admin Dose 10 MG; Start 05/26/17 at 21:00 Acetaminophen (Tylenol Tab) 650 mg Q4H PRN PO pain/fever; Start 05/26/17 at 02: 00 Hydralazine HCl (Apresoline) 25 mg Q6H PRN PO sbp>160 Last administered on 05/29 05:07; Admin Dose 25 MG; Start 05/26/17 at 02:00 Hydrochlorothiazide (Hydrochlorothiazide) 25 mg DAILY PO Last administered on 08:28; Admin Dose 25 MG; Start 05/26/17 at 09:00 Miscellaneous Information 1 ea NOTE XX ; Start 05/26/17 at 02:15 Glucose (Glutose) 15 gm Q15M PRN PO DECREASED GLUCOSE Last administered on 05/26 21:56; Admin Dose 15 GM; Start 05/26/17 at 02:15 Glucose (Glutose) 22.5 gm Q15M PRN PO DECREASED GLUCOSE; Start 05/26/17 at 02: 15 Dextrose (D50w Syringe) 25 ml Q15M PRN IV DECREASED GLUCOSE Last administered on 05/26/17 04:36; Admin Dose 25 ML; Start 05/26/17 at 02:15 Dextrose (D50w Syringe) 50 ml Q15M PRN IV DECREASED GLUCOSE; Start 05/26/17 at 02:15 Glucagon (Glucagen) 1 mg Q15M PRN IM DECREASED GLUCOSE; Start 05/26/17 at 02:15 Glucose (Glutose) 15 gm Q15M PRN BUCCAL DECREASED GLUCOSE; Start 05/26/17 at 02 :15 Insulin Glargine (Lantus) 18 unit DAILY@08 SC Last administered on 05/29/17 08 :51; Admin Dose 18 UNIT; Start 05/27/17 at 08:00 Diagnostic Test (Pha) (Accu-Chek) 1 ea 02 XX Last administered on 05/27/17 01: 46; Admin Dose 1 EA; Start 05/27/17 at 02:00 Carvedilol (Coreg) 6.25 mg Q12 PO Last administered on 05/29/17 08:27; Admin Dose 6.25 MG; Start 05/27/17 at 14:00 Enoxaparin Sodium (Lovenox) 40 mg DAILY SC Last administered on 05/29/17 08:39 ; Admin Dose 40 MG; Start 05/27/17 at 14:00 IV Flush 10 ml 10 ml PRN PRN IV IV PROTOCOL; Start 05/27/17 at 17:00 Vancomycin HCl/ Sodium Chloride (Vancocin/NS) 500 ml @ 125 mls/hr Q12H IVPB Last administered on 05/29/17 05:06; Admin Dose 125 MLS/HR; Start 05/28/17 at 18:00 Levofloxacin (Levaquin) 500 mg DAILY@06 PO Last administered on 8/13/17at 05:07 ; Admin Dose 500 MG; Start 05/29/17 at 06:00 LORENA WATKINS May 29, 2017 11:15
[2017-05-29] MEDS ORDERED: LACT1CAP57 PO (11:17)
[2017-05-29] MEDS ORDERED: LACTOBACILLUS RHAMNOSUS CAP PO SCH (11:30)
--- NOTE | 2017-05-29 11:54 | RADRPT ---
PROCEDURE: US Lower extremity arterial. CLINICAL INDICATION: peripheral arterial disease, claudication, leg pain, gangrene TECHNIQUE: Multiple sonographic images of the bilateral lower extremity arteries were obtained uti lizing grayscale, color-flow and doppler imaging. The images were reviewed on a PACS workstation. COMPARISON: None. FINDINGS: There is mild calcific plaque. Velocities and waveforms were obtained as described below. RIGHT LEG: Right common femoral artery: 104 cm/s; triphasic waveforms Right proximal superficial femoral artery: 89.1 cm/s; triphasic waveforms Right mid superficial femoral artery: 102.9 cm/s; triphasic waveforms Right distal superficial femoral artery: 94.3 cm/s; triphasic waveforms Right popliteal artery: 80 cm/s; triphasic waveforms Right posterior tibial artery: 160 cm/s; monophasic waveforms Right dorsalis pedis artery: 190 cm/s; monophasic waveforms Right STEPHEN at PT: 0.86 LEFT LEG: Left common femoral artery: 66 cm/s; triphasic waveforms Left proximal superficial femoral artery: 88.9 cm/s; biphasic waveforms Left mid superficial femoral artery: 77.3 cm/s; biphasic waveforms Left distal superficial femoral artery: 79.6 cm/s; biphasic waveforms Left popliteal artery: 80 cm/s; biphasic waveforms Left posterior tibial artery: 150 cm/s; biphasic waveforms Left dorsalis pedis artery:220 cm/s; biphasic waveforms Left STEPHEN at PT: 0.81 RPTAT: AA IMPRESSION: Decreased STEPHEN bilaterally. Increased velocities in the bilateral posterior tibial dorsalis pedis arteries. Monophasic waveforms in the [id number] arteries on the right. .Jorje Rosenberg MD, Date Time Electronically viewed and signed by .Jorje Rosenberg MD, MD on 05/29/2017 11:54 .S/
--- NOTE | 2017-05-29 16:34 | CONS ---
DATE OF ADMISSION: 05/26/2017 DATE OF CONSULTATION: 05/29/2017 HISTORY OF PRESENT ILLNESS: Dear Doctors, the patient is a 56- year-old gentleman known to our vascular surgery service secondary to longstanding family history of atherosclerotic disease, in which we have been taking care of his mother in our vascular office, and the family had requested to be seen by vascular surgery. At the moment the patient denies shortness of breath, chest pain, nausea, vomiting, fever, chills. The patient mentioned he has had a longstanding history of right lower extremity 2nd toe on and off infections with swelling and erythema, and seems that over the past week has been worsening, in which he had to come to the emergency room for evaluation. The patient also has developed a 5th toe callus with what seemed to be an eschar on the lateral aspect of the toe. REVIEW OF SYSTEMS: Fourteen point review performed, negative except what was mentioned in HPI. PAST MEDICAL HISTORY: Involves diabetes, hypertension, hypercholesterolemia, obese, BMI of 29.4, peripheral neuropathy, and diabetic nephropathy. ALLERGIES: NO KNOWN DRUG ALLERGIES. SOCIAL HISTORY: Denies tobacco, alcohol, or illicit drug use. FAMILY HISTORY: Positive for diabetes and hypertension. PHYSICAL EXAMINATION: GENERAL: Alert and oriented times 3. No apparent distress. HEENT: Normocephalic, atraumatic. PERRLA. EOMI. Mucosa moist. NECK: Supple. No carotid bruit. LUNGS: Clear to auscultation bilaterally. No crackles. HEART: S1, S2 present. No murmurs. ABDOMEN: Soft, nontender, nondistended. Bowel sounds positive. EXTREMITIES: Right lower extremity, palpable femoral pulse, nonpalpable pedal pulse. Motor and sensory intact. Capillary refill 3 seconds. The 2nd toe with edema and erythema extending to the forefoot with some discoloration of the tip of the toe. The 5th toe with heavy callus and eschar on the lateral aspect. ASSESSMENT AND PLAN: Bilateral lower extremity atherosclerosis with right lower extremity diabetic foot infection and 2nd toe nonhealing ulcer: It seems the patient has developed recurrent diabetic foot infection, in which he requires admission with long- term antibiotics for his possible osteo. Upon his arterial Doppler, it was identified patient having severe infrapopliteal disease with monophasic waveforms, in which he would require further evaluation should his progress of wound healing be delayed were not optimized. Will schedule the patient for outpatient follow up regarding his wound care and possibly schedule the patient for an angiogram if indicated with worsening wound and nonhealing osteo. Optimize vascular status (blood pressure meds, nutrition, exercise, sugar control, antiplatelets). Discussed findings and plan management with the patient and he understands. Thank you for allowing us to partake in the care of your patient. Please call with any questions. Dictated By: Alexy Beltran MD /luigi/noram /Document#: [id number]
--- NOTE | 2017-05-29 21:04 | PN ---
DATE: 05/29/2017 SUBJECTIVE DATA: No events overnight. No fevers. The patient is awake, looks comfortable. Antimicrobials: Levaquin, vancomycin. PHYSICAL EXAMINATION: Well developed, middle-aged, man who is alert, in no distress. HEENT: Head atraumatic, normocephalic. Sclerae anicteric. Buccal mucosa pink. NECK: Supple. CHEST: Chest rise symmetric, breath sounds clear. HEART: S1, S2. ABDOMEN: Soft, bowel sounds present. EXTREMITIES: Without cyanosis. Right foot with dressing intact. ASSESSMENT AND PLAN: 1. Right diabetic foot ulcer with osteomyelitis of the toe. 2. Diabetes. 3. Diabetic neuropathy. 4. Hypertension. PLAN: The patient remains stable. Will continue him on current antimicrobials for 6 weeks. Follow with Podiatry as an outpatient. Dictated By: Ragini Hernandez NP /luigi/lynn /Document#: [id number]
== END 2017-05-29 18:25 | disposition home health service (06) | DRG 638 ==
LOC: E/R 20:57 → MS1 05-26 02:03
PROVIDERS: ADMIT Legal Medicine; ATTEND Legal Medicine
PROC: 02HV33Z Insertion of Infusion Device into Superior Vena Cava, Percutaneous Approach (ICD-10-PCS; principal; 2017-05-27)
PROC: B548ZZA Ultrasonography of Superior Vena Cava, Guidance (ICD-10-PCS; 2017-05-27)
DX: E11.628 Type 2 diabetes mellitus with other skin complications (principal); L03.115 Cellulitis of right lower limb; M86.171 Other acute osteomyelitis, right ankle and foot; E11.42 Type 2 diabetes mellitus with diabetic polyneuropathy; E11.69 Type 2 diabetes mellitus with other specified complication; B96.3 Hemophilus influenzae [H. influenzae] as the cause of diseases classified elsewhere; B96.89 Other specified bacterial agents as the cause of diseases classified elsewhere; L03.032 Cellulitis of left toe; Z16.35 Resistance to multiple antimicrobial drugs; I10 Essential (primary) hypertension; S92.531A Displaced fracture of distal phalanx of right lesser toe(s), initial encounter for closed fracture; S92.511A Displaced fracture of proximal phalanx of right lesser toe(s), initial encounter for closed fracture; X58.XXXA Exposure to other specified factors, initial encounter; M65.871 Other synovitis and tenosynovitis, right ankle and foot; E78.5 Hyperlipidemia, unspecified; Y93.89 Activity, other specified; Y92.89 Other specified places as the place of occurrence of the external cause; Y99.8 Other external cause status; Z79.4 Long term (current) use of insulin; Z87.891 Personal history of nicotine dependence
CPT/HCPCS: 36569; 71010; 73630; 73718; 76937; 80048; 80053; 80061; 80202; 82947; 82962; 83036; 83735; 84100; 85025; 85610; 85651; 85730; 87040; 87070; 93306; 93922; 96374; 96375; J1650; J1815; J2543; J3370; J3475; J7030; J7040; J7042; J7050

== ENCOUNTER 2017-06-08 00:52 | Inpatient (IN) | payer OTHER ==
[~2017-06-08] VITALS: Ht 175.3 cm; Wt 88.5 kg
[2017-06-08] VITALS (39 sets, daily range): BP systolic 86–197; BP diastolic 49–99; PULSE 62–99; RESP 11–46; TEMP 97.4; Ht 175.3 cm; Wt 88.5 kg
[~2017-06-08 00:52] MED LIST changes: +BIOT1CAP3 PO; +CALC-516 PO; +CARV6.2579 PO; -CEPH-443 PO; -CIPR500T4 PO; -CLIN-73 PO; +LACT1CAP57 PO; +LEVO500T72 PO; +MULTI PO; +OMEG-119 PO; -SULF1TAB31 PO; +VITA1CAP PO; +VITA400C41 PO; +[UNRECOGNIZED DRUG - CODE] IVPB
[2017-06-08] MEDS ORDERED: hydrALAzine 20 MG INJ IV ONE (01:30)
[2017-06-08] MEDS ORDERED: NITROGLYCERIN 50 MG/D5W (PMX) 250 ML IV STA (01:38)
[2017-06-08] MEDS ORDERED: NITROGLYCERIN 50 MG/D5W (PMX) 250 ML ONE (01:39)
[2017-06-08 01:53] LABS: BASOPHIL # 0.1 10^3/ul (0.0-0.1); BASOPHILS % 0.4 % (0.0-2.0); EOSINOPHILS % 0.1 % (0.0-7.0); HEMATOCRIT 35.4 % (42.0-52.0); HEMOGLOBIN 11.7 g/dl (14.0-18.0); LYMPHOCYTES # 1.4 10^3/ul (0.8-2.9); LYMPHOCYTES % 8.7 % (15.0-51.0); MEAN CORPUSCULAR HEMOGLOBIN 26.8 pg (29.0-33.0); MEAN CORPUSCULAR HGB CONC 33.1 g/dl (32.0-37.0); MEAN PLATELET VOLUME 11.3 fl (7.4-10.4); MONOCYTE # 1.4 10^3/ul (0.3-0.9); MONOCYTES % 8.3 % (0.0-11.0); PLATELET COUNT 194 10^3/UL (140-415); RED BLOOD COUNT 4.37 10^6/ul (4.70-6.10); WHITE BLOOD COUNT 16.5 10^3/ul (4.8-10.8)
[2017-06-08] MEDS ORDERED: FUROSEMIDE 40 MG INJ IV ONE ×3 (02:00→18:00)
[2017-06-08 02:11] LABS: INR 1.08; PT RATIO 1.1
[2017-06-08 02:12] LABS: PARTIAL THROMBOPLASTIN TIME 34.8 Sec (25.0-35.0)
[2017-06-08 02:15] LABS: ALBUMIN 3.9 g/dl (3.3-4.9); ALBUMIN/GLOBULIN RATIO 0.97; BILIRUBIN,INDIRECT 1.1 mg/dl (0-1.1); BILIRUBIN,TOTAL 1.1 mg/dl (0.2-1.3); CALCIUM 9.3 mg/dl (8.4-10.2); CREATININE 0.7 mg/dl (0.61-1.24); POTASSIUM 3.5 mmol/L (3.5-5.1); TOTAL PROTEIN 7.9 g/dl (6.1-8.1)
--- NOTE | 2017-06-08 02:23 | RADRPT ---
PROCEDURE: Chest. CLINICAL INDICATION: Chest pain. TECHNIQUE: Single frontal view of the chest was obtained. COMPARISON: 05/27/2017. FINDINGS: The cardiac silhouette is within normal limits. The aortic arch is unremarkable. There are hazy an d patchy opacities bilaterally. There is no pleural effusion. There is no pneumothorax. IMPRESSION: Bilateral hazy and patchy opacities could represent pulmonary edema and/or multifocal pneumonia, new compared with the prior study. .Leif Tidwell MD, MD Date Time Electronically viewed and signed by .Leif Tidwell MD, MD on 06/08/2017 02:23 .T/
[2017-06-08] MEDS ORDERED: VERA360C6 PO (02:35)
[2017-06-08 02:39] LABS: ADD UMIC YES; UR ASCORBIC ACID 20 mg/dL (NEGATIVE); UR BACTERIA FEW /HPF (NONE SEEN); UR BILIRUBIN (Dip) NEGATIVE (NEGATIVE); UR BLOOD (Dip) 1+ mg/dL (NEGATIVE); UR CLARITY CLOUDY (CLEAR); UR COLOR YELLOW (YELLOW); UR GLUCOSE (Dip) 3+ mg/dL (NEGATIVE); UR KETONES (Dip) 1+ mg/dL (NEGATIVE); UR LEUKOCYTE ESTERASE (Dip) NEGATIVE Leu/ul (NEGATIVE); UR MUCUS FEW /HPF (NONE SEEN); UR NITRITE (Dip) NEGATIVE (NEGATIVE); UR RBC 13 /HPF (0-5); UR SPECIFIC GRAVITY (Dip) 1.022 (1.003-1.030); UR TOTAL PROTEIN (Dip) 3+ mg/dl (NEGATIVE); UR UROBILINOGEN (Dip) NEGATIVE (NEGATIVE)
[2017-06-08 02:54] LABS: TROPONIN-I 0.047 ng/ml (0.00-0.12)
--- NOTE | 2017-06-08 03:08 | ERA ---
ER Documentation Chief Complaint Date/Time DATE: 06/08/17 TIME: 03:06 Chief Complaint FEVER, CHILLS, SHORTNESS OF BREATH, WEAKNESS, DIAPHORETIC, HIGH BLOOD PRESS HPI 56-year-old male fevers chills shortness of breath. Patient has been feeling very weak and coughing up pink frothy. Patient denies any nausea vomiting fevers or chills. Denies any chest pain. Denies any other current complaints. ROS All systems reviewed and are negative except as per history of present illness. Medications Home Meds Active Scripts Lactobacillus Rhamnosus* (Culturelle*) 1 Each Cap.sprink, 1 CAP PO BID, #60 CAP Prov:LORENA WATKINS 05/29/17 Carvedilol* (Carvedilol*) 6.25 Mg Tablet, 6.25 MG PO Q12 for 30 Days, TAB 3 Refills Prov:LORENA WATKINS 05/29/17 Levofloxacin* (Levaquin*) 500 Mg Tablet, 500 MG PO DAILY for 42 Days, TAB Prov:LORENA WATKINS 05/29/17 Vancomycin-NS (Vancomycin-NS) 1.75 Gm/500 Ml Plast..bag, 1.75 GM IVPB Q12 for 42 Days, EA Prov:LORENA WATKNIS 05/29/17 Ibuprofen* (Motrin*) 600 Mg Tab, 600 MG PO Q6, #30 TAB Prov:MACHELLE MEADE PA-C 02/07/17 Reported Medications Verapamil Hcl* (Verelan*) 360 Mg Cap24h.pel, 360 MG PO DAILY, CAP 06/08/17 Calcium Carbonate/Vitamin D3 (OYSTER SHELL CALCIUM TABLET) 1 Each Tablet, 1 EACH PO, TAB 05/26/17 Vitamin E Mixed* (Vitamin E*) 400 Unit Capsule, 400 UNIT PO DAILY, CAP 05/26/17 Biotin (BIOTIN) 1 Mg Capsule, 1 MG PO, CAP 05/26/17 Omega3/Dha/Epa/Fish Oil/Vit D3 (Niota-3 + Vitamin D3 Softgel) 1 Each Capsule, 1 EACH PO, CAP 05/26/17 Vitamin B Complex (Vitamin B Complex) 1 Each Capsule, 1 EACH PO, CAP 05/26/17 Multivitamins* (Theragran*) 1 Tab Tab, 1 TAB PO DAILY, TAB 05/26/17 Aspirin* (Aspirin* Chew) 81 Mg Tab.chew, 81 MG PO DAILY, TAB.CHEW 08/27/15 Lovastatin* (Lovastatin*) 20 Mg Tablet, 20 MG PO HS, TAB 08/27/15 Glimepiride* (Glimepiride*) 1 Mg Tablet, 1 MG PO BID, TAB 08/27/15 Metformin* (Glucophage*) 1,000 Mg Tablet, 1000 MG PO BID, TAB 08/27/15 Lisinopril* (Lisinopril*) 40 Mg Tablet, 40 MG PO BID, TAB 08/27/15 Discontinued Reported Medications Verapamil Hcl* (Calan*) 80 Mg Tablet, 80 MG PO TID, TAB 08/27/15 Allergies Allergies: Coded Allergies: No Known Allergy (Unverified , 05/26/17) PMhx/Soc History of Surgery: Yes (appendectomy) Anesthesia Reaction: No Hx Neurological Disorder: No Hx Respiratory Disorders: No Hx Cardiac Disorders: Yes (HTN, Hyperlipidemia) Hx Psychiatric Problems: No Hx Miscellaneous Medical Probl: Yes (diabetes) Hx Alcohol Use: Yes (socially) Hx Substance Use: No Hx Tobacco Use: Yes (quit) Smoking Status: Former smoker Physical Exam Vitals Vital Signs Date Time Temp Pulse Resp B/P Pulse Ox O2 Delivery O2 Flow Rate FiO2 06/08/17 03:04 111 100 50 06/08/17 02:22 101.3 106 22 185/100 100 BIPAP 06/08/17 01:28 101 100 100 06/08/17 01:01 101.3 103 22 232/106 77 Physical Exam Const: [] Head: Atraumatic Eyes: Normal Conjunctiva ENT: Normal External Ears, Nose and Mouth. Neck: Full range of motion..~ No meningismus. Resp: Clear to auscultation bilaterally Cardio: Regular rate and rhythm, no murmurs Abd: Soft, non tender, non distended. Normal bowel sounds Skin: No petechiae or rashes Back: No midline or flank tenderness Ext: No cyanosis, or edema Neur: Awake and alert Psych: Normal Mood and Affect Result Diagram: 06/08/17 0120 06/08/17 0120 Results 24 hrs Laboratory Tests Test 06/08/17 01:20 06/08/17 02:05 White Blood Count 16.510^3/ul Red Blood Count 4.3710^6/ul Hemoglobin 11.7g/dl Hematocrit 35.4% Mean Corpuscular Volume 81.0fl Mean Corpuscular Hemoglobin 26.8pg Mean Corpuscular Hemoglobin Concent 33.1g/dl Red Cell Distribution Width 14.0% Platelet Count 25916^3/UL Mean Platelet Volume 11.3fl Neutrophils % 82.0% Lymphocytes % 8.7% Monocytes % 8.3% Eosinophils % 0.1% Basophils % 0.4% Nucleated Red Blood Cells % 0.0/100WBC Neutrophils # (Manual) 1410^3/ul Lymphocytes # 1.410^3/ul Monocytes # 1.410^3/ul Eosinophils # 0.010^3/ul Basophils # 0.110^3/ul Nucleated Red Blood Cells # 0.010^3/ul Prothrombin Time 14.0Sec Prothrombin Time Ratio 1.1 INR International Normalized Ratio 1.08 Activated Partial Thromboplast Time 34.8Sec Sodium Level 133mmol/L Potassium Level 3.5mmol/L Chloride Level 91mmol/L Carbon Dioxide Level 25mmol/L Anion Gap 21 Blood Urea Nitrogen 16mg/dl Creatinine 0.70mg/dl Glucose Level 188mg/dl Lactic Acid Level 2.8mmol/L Calcium Level 9.3mg/dl Total Bilirubin 1.1mg/dl Direct Bilirubin 0.00mg/dl Indirect Bilirubin 1.1mg/dl Aspartate Amino Transf (AST/SGOT) 26IU/L Alanine Aminotransferase (ALT/SGPT) 36IU/L Alkaline Phosphatase 74IU/L Troponin I 0.047ng/ml Total Protein 7.9g/dl Albumin 3.9g/dl Globulin 4.00g/dl Albumin/Globulin Ratio 0.97 Urine Color YELLOW Urine Clarity CLOUDY Urine pH 5.0 Urine Specific [place] 1.022 Urine Ketones 1+mg/dL Urine Nitrite NEGATIVEmg/dL Urine Bilirubin NEGATIVEmg/dL Urine Urobilinogen NEGATIVEmg/dL Urine Leukocyte Esterase NEGATIVELeu/ul Urine Microscopic RBC 13/HPF Urine Microscopic WBC 6/HPF Urine Bacteria FEW/HPF Urine Hyaline Casts FEW/HPF Urine Granular Casts FEW/HPF Urine Mucus FEW/HPF Urine Hemoglobin 1+mg/dL Urine Glucose 3+mg/dL Urine Total Protein 3+mg/dl Current Medications Medications (Trade) Dose Ordered Sig/Collins Route PRN Reason Start Time Stop Time Status Last Admin Dose Admin Hydralazine HCl 20 mg 20 mg ONCE ONCE IV 06/08/17 01:30 06/08/17 01:31 DC 06/08/17 01:28 Nitroglycerin/ Dextrose 250 ml @ ud STK-MED ONCE .ROUTE 06/08/17 01:39 06/08/17 01:40 DC Nitroglycerin/ Dextrose (Nitroglycerin 50 Mg/D5W (Pmx)) 250 ml @ 0 mls/hr TITRATE STAT IV 06/08/17 01:38 06/08/17 01:42 DC 06/08/17 02:51 Furosemide (Lasix) 40 mg ONCE ONCE IV 06/08/17 02:00 06/08/17 02:01 DC 06/08/17 02:49 Furosemide (Lasix) 80 mg ONCE ONCE IV 06/08/17 03:00 06/08/17 03:01 DC Procedures/MDM EKG: Rate/Rhythm: Normal Sinus Rhythm QRS, ST, T-waves: No changes consistent w/ acute ischemia Impression: No evidence of ischemia or arrhythmia Chest X-ray 1V Interpreted by me: Soft Tissue: No acute abnormalities Bones: No acute abnormalities Mediastinum/Cardiac Silhouette/Lungs: No acute abnormalities Patient's heart failure symptoms is concerning for acute decompensation and will require inpatient workup and monitoring. Further w/u for ischemia, arrhythmia, PE or dissection will be deferred to the inpatient team. Accepting Care Team: Current data and ongoing care discussed. Time: 2:30 AM Primary Provider: Mekhi Consulting: [XOXOXO] Outstanding Data: none Critical Care: Time: 55 minutes Treatments/Evaluations: Close monitoring and treatment of unstable vital signs, cardiorespiratory, and neurologic status, while maintaining tight balance of fluid, respiratory, and cardiac interventions. Departure Diagnosis: Primary Impression: Pulmonary edema Qualified Code: J81.0 - Acute pulmonary edema Condition: Serious BELKIS ANDERSON Jun 08, 2017 03:08
[2017-06-08] MEDS ORDERED: HYDROCODONE/APAP (5/325) TAB PO PRN (04:00)
[2017-06-08] MEDS ORDERED: ONDANSETRON 4 MG INJ IV PRN (04:00)
[2017-06-08] MEDS ORDERED: DOCUSATE SODIUM 100 MG CAP PO PRN (04:00)
[2017-06-08] MEDS ORDERED: MAGNESIUM HYDROXIDE 30ML CUP PO PRN (04:00)
[2017-06-08] MEDS ORDERED: NITROGLYCERIN (SL) 0.4 MG TAB SL PRN (04:00)
[2017-06-08] MEDS ORDERED: morphine 2 MG INJ IV PRN (04:00)
[2017-06-08] MEDS ORDERED: BISACODYL 10 MG SUPP PR PRN (04:00)
[2017-06-08] MEDS ORDERED: VANCOMYCIN IV PER PHARMACY XX SCH (04:30)
--- NOTE | 2017-06-08 04:43 | RADRPT ---
PROCEDURE: XR Chest. CLINICAL INDICATION: Shortness of breath TECHNIQUE: Portable single view of the chest COMPARISON: 06/08/2017 FINDINGS: Bihilar infiltrates or edema are again seen, slightly increased in the right upper lobe. Mild cardi omegaly. No large effusion. Top normal pulmonary vascularity. IMPRESSION: Slight increase in right upper lobe infiltrate or edema. Otherwise similar appearance. RPTAT: HLBE Katie Avery Physician Date Time Electronically viewed and signed by Katie Avery, Physician on 06/08/2017 04:43 LE/
[2017-06-08] MEDS: HYDROCODONE/APAP (5/325) TAB PO PRN (05:04)
[2017-06-08 05:57] LABS: BASOPHILS % 0.2 % (0.0-2.0); HEMATOCRIT 34.3 % (42.0-52.0); HEMOGLOBIN 11.6 g/dl (14.0-18.0); LYMPHOCYTES % 6.1 % (15.0-51.0); MEAN CORPUSCULAR HEMOGLOBIN 27.5 pg (29.0-33.0); MEAN CORPUSCULAR HGB CONC 33.8 g/dl (32.0-37.0); MEAN CORPUSCULAR VOLUME 81.3 fl (82.0-101.0); MEAN PLATELET VOLUME 11.4 fl (7.4-10.4); MONOCYTE # 1.3 10^3/ul (0.3-0.9); MONOCYTES % 7.8 % (0.0-11.0); NEUTROPHILS % 85.5 % (39.0-77.0); PLATELET COUNT 165 10^3/UL (140-415); RED BLOOD COUNT 4.22 10^6/ul (4.70-6.10); RED CELL DISTRIBUTION WIDTH 13.7 % (11.5-14.5); WHITE BLOOD COUNT 16.5 10^3/ul (4.8-10.8)
[2017-06-08] MEDS ORDERED: PANTOPRAZOLE 40 MG INJ IV SCH (06:00)
[2017-06-08 06:33] LABS: ALBUMIN 3.5 g/dl (3.3-4.9); ALBUMIN/GLOBULIN RATIO 0.92; BILIRUBIN,INDIRECT 1.1 mg/dl (0-1.1); BILIRUBIN,TOTAL 1.1 mg/dl (0.2-1.3); CALCIUM 8.8 mg/dl (8.4-10.2); CHOL/HDL RATIO 2.2 RATIO; CREATININE 0.85 mg/dl (0.61-1.24); MAGNESIUM 1.5 mg/dl (1.7-2.5); PHOSPHORUS 3.9 mg/dl (2.5-4.9); POTASSIUM 3.5 mmol/L (3.5-5.1); TOTAL PROTEIN 7.3 g/dl (6.1-8.1)
[2017-06-08] MEDS ORDERED: VANCOMYCIN 1.75 GM in NS 500 ML IVPB ONE (07:00)
[2017-06-08] MEDS: HEPARIN 5,000 UNIT/0.5 ML VIAL SC SCH ×3 (07:12→21:21)
[2017-06-08 07:27] LABS: TROPONIN-I 0.069 ng/ml (0.00-0.12)
[2017-06-08 07:37] LABS: CK-MB 1.2 ng/ml (0.0-2.4)
[2017-06-08] MEDS: MEROPENEM 1 GM/50ML(PMX) 50 ML IVPB SCH ×3 (08:06→22:50)
[2017-06-08] MEDS: LACTOBACILLUS RHAMNOSUS CAP PO SCH ×2 (08:57→21:15)
[2017-06-08] MEDS: LISINOPRIL 20 MG TAB PO SCH ×2 (08:58→21:15)
[2017-06-08] MEDS: VERAPAMIL (SR) 180 MG TAB PO SCH (08:58)
[2017-06-08] MEDS: MULTIVITAMINS THERAPEUTIC TAB PO SCH (08:58)
[2017-06-08] MEDS: ASPIRIN 81 MG TAB PO SCH (08:59)
[2017-06-08] MEDS: POVIDONE IODINE 10% 28.4 GM OINT TOP SCH (08:59)
[2017-06-08] MEDS: VITAMIN E 400 UNITS CAP PO SCH (08:59)
[2017-06-08] MEDS: metFORMIN 500 MG TAB PO SCH ×2 (09:00→17:16)
[2017-06-08] MEDS: INSULIN ASPART [NOVOLOG] 3 ML PEN SC SCH ×4 (09:08→21:36)
[2017-06-08] MEDS ORDERED: MAGNESIUM SULFATE 4 GM/100 ML 100 ML IVPB ONE (12:00)
--- NOTE | 2017-06-08 12:04 | HP ---
Date/Time of Note Date/Time of Note DATE: 06/08/17 TIME: 11:45 Assessment/Plan VTE Prophylaxis VTE Prophylaxis Intervention: heparin Lines/Catheters IV Catheter Type (from Nrs): PICC Line Central line still needed: Yes (IV access) Urinary Cath still in place: Yes Reason Cath still needed: other (indicate) (Diuresis) Assessment/Plan Assessment/Plan 56 yo male with: 1. Acute respiratory failure, required BiPAP for a few hours now resolved. Likely episode secondary to CHF exacerbation also seems like patient has a right middle lobe pneumonia on chest x-ray, repeat echocardiogram pending as patient seems to have mostly diastolic dysfunction based on his previous echocardiogram. He was also severely hypertensive when this respiratory distress worsened, he may have had flash pulmonary edema at that time setting of hypertensive emergency. Continue diuresis, strict I's and O's Continue supplemental oxygen will keep titrating his O2 requirement down he is on 4 L nasal cannula currently. Rule out acute coronary syndrome, cardiac enzymes negative 2 so far. Limited 2D echocardiogram to evaluate ejection fraction. CAT scan of the chest in the next 24 hours once patient more stable from the respiratory standpoint. 2. Hypertension, uncontrolled on admission, actually patient with hypertensive emergency in the ER, status post nitro drip which is now discontinued for the past few hours, blood pressure is stable will resuming his outpatient medications. Titrate and add medications as needed for blood pressure. Continue diuresis 3. Pneumonia, possibly healthcare associated versus community-acquired, patient has been on vancomycin as an outpatient already, this will be continued , I have extended her second antibiotic to meropenem in the acute setting. Lactic acid normalized. On 4 L nasal cannula now. CT chest when more stable from a respiratory standpoint. 4. Right Diabetic foot infection, previous MRI consistent with osteomyelitis of second toe, myositis and also tenosynovitis, On his last admission the recommendation was for patient to remain on long-term IV antibiotics as patient not keen on surgical amputation. He does have a PICC line in place, he is to complete a six-week course of antibiotics per infectious disease and podiatry. 5. Diabetes mellitus: A1c of 6.1, continue outpatient regimen at that time including metformin for now. Sliding scale insulin and diabetic diet. 6. Hyperlipidemia : Continue statin therapy. Repeat fasting lipid panel stable. Prophylaxis : Lovenox for DVT prophylaxis, Pepcid for GI prophylaxis. Disposition : Patient currently in intensive care unit but respiratory status much improved, can be transferred to telemetry later today if respiratory status and blood pressure remains stable. HPI/ROS Admit Date/Time Admit Date/Time Jun 08, 2017 at 05:27 Hx of Present Illness Chief complaint: Fever, chills, difficulty breathing History of presenting illness: This is a 56-year-old male with known diabetes mellitus, diabetic foot ulcers on his toes with documented tenosynovitis, myositis and osteomyelitis, currently on treatment with vancomycin and Levaquin who presented to the emergency department overnight with reported chills and difficulty breathing. Patient reports that since his discharge approximately 2 weeks ago, he has been doing fairly well at home. 2 days prior to this admission he actually went to a walk on the [facility], however 24 hours prior to admission he started having episodes of generalized aching, some shortness of breath, subjective fevers, and chills. Yesterday he woke up with some difficulty breathing and shortness of breath, it was not as bad as he states that worsened throughout the day therefore he came to the emergency department last night. In the emergency department patient was found to be in hypertensive emergency his systolic blood pressures were in the 260s according to the ER physician, patient was also febrile with temperature of 101.9, he progressed and severe respiratory distress requiring BiPAP, chest x-ray shows a signs of pulmonary edema but also possible underlying right-sided pneumonia. He was given Lasix 120 mg IV 1 by the ER physician, Heredia catheter placed. Patient is still diuresing this morning, he was admitted to intensive care unit overnight but currently he is off BiPAP on 4 L nasal cannula. Blood pressure is stable, he was on a nitro drip for a few hours in the ER until blood pressure control. He had a 2D echocardiogram on his last admission 05/26 with ejection fraction of 55% , given his acute episode and elevated BNP limited 2D echocardiogram is reordered to evaluate ejection fraction. He is antibiotics were broadened he is now on vancomycin but also meropenem. He feels better. He may be transferred out of the intensive care unit within the next 24 hours. He denies chest pain, gastrointestinal genitourinary complaints. His diabetic foot ulcers are stable under current treatment. ROS Constitutional: chills, diaphoresis, fatigue, febrile, nausea Respiratory: shortness of breath Cardiovascular: no complaints Gastrointestinal: no complaints Genitourinary: no complaints Musculoskeletal: no complaints, other (Diabetic toe ulcers unchanged) Neurologic: no complaints Psychological: no complaints PMH/Family/Social Past Medical History Hypertension Diabetes mellitus Diabetic neuropathy Hyperlipidemia Diabetic toes ulcerations Past Surgical History Past Surgical Hx: no surgical history Family History Significant Family History: no pertinent family hx Social History Alcohol Use: none Smoking Status: Former smoker Drug Use: none Exam/Review of Systems Vital Signs Vitals Vital Signs Date Time Temp Pulse Resp B/P Pulse Ox O2 Delivery O2 Flow Rate FiO2 06/08/17 10:00 79 136/65 97 Nasal Cannula 06/08/17 08:00 97.8 06/08/17 07:15 11 06/08/17 06:30 4.0 06/08/17 05:04 40 Exam Constitutional: alert, oriented, well developed Respiratory: diminished breath sounds (Bilaterally more pronounced on the right middle lobe area), normal air movement, other (On 4 L nasal cannula) Cardiovascular: nl pulses, regular rate and rhythm Gastrointestinal: non-tender, soft Musculoskeletal: nl extremities to inspection, other (Bilateral ulcerations of some of his toes, no draining wound.) Extremities: normal pulses, other (No clubbing, no cyanosis, +1 edema improved) Neurological: FINAL [employer] II-XII intact, nl mental status, nl speech, nl strength Labs Result Diagram: 06/08/1752106/08/17521 Medications Medications Current Medications Aspirin (Aspirin) 81 mg DAILY PO Last administered on 06/08/17 08:59; Admin Dose 81 MG; Start 06/08/17 at 09:00 Carvedilol (Coreg) 6.25 mg Q12 PO Last administered on 06/08/17 08:59; Admin Dose 6.25 MG; Start 06/08/17 at 09:00 Lactobacillus Acidophilus/ Rhamnosus (Culturelle) 1 cap BID PO Last administered on 06/08/17 08:57; Admin Dose 1 CAP; Start 06/08/17 at 09:00 Lisinopril (Zestril) 40 mg BID PO Last administered on 06/08/17 08:58; Admin Dose 40 MG; Start 06/08/17 at 09:00 Multivitamins Therapeutic (Theragran) 1 tab DAILY PO Last administered on 08:58; Admin Dose 1 TAB; Start 06/08/17 at 09:00 Verapamil HCl (Isoptin Sr) 360 mg DAILY PO Last administered on 06/08/17 08:58 ; Admin Dose 360 MG; Start 06/08/17 at 09:00 Vitamin E (Vitamin E) 400 units DAILY PO Last administered on 06/08/17 08:59; Admin Dose 400 UNITS; Start 06/08/17 at 09:00 Atorvastatin Calcium (Lipitor) 10 mg DAILY@21 PO ; Start 06/08/17 at 21:00 Ondansetron HCl (Zofran Inj) 4 mg Q6H PRN IV NAUSEA AND/OR VOMITING; Start at 04:00 Nitroglycerin (Nitroglycerin (Sl Tab) 0.4 Mg) 1 tab Q5M PRN SL CHEST PAIN; Start 06/08/17 at 04:00 Acetaminophen (Tylenol Tab) 650 mg Q6H PRN PO PAIN LEVEL 1-3 OR FEVER; Start at 04:00 Acetaminophen/ Hydrocodone Bitart ([place] (5/325)) 1 tab Q6H PRN PO PAIN LEVEL 4 -6; Start 06/08/17 at 04:00 Acetaminophen/ Hydrocodone Bitart ([place] (5/325)) 2 tab Q6H PRN PO PAIN LEVEL 7 -10 Last administered on 06/08/17 05:04; Admin Dose 2 TAB; Start 06/08/17 at 04 :00 Morphine Sulfate (morphine) 2 mg Q4H PRN IV PAIN LEVEL 7-10; Start 06/08/17 at 04:00 Docusate Sodium (Colace) 100 mg Q12H PRN PO CONSTIPATION; Start 06/08/17 at 04: 00 Magnesium Hydroxide (Milk Of Mag) 30 ml DAILY PRN PO CONSTIPATION; Start at 04:00 Bisacodyl (Dulcolax Supp) 10 mg DAILY PRN [place] CONSTIPATION; Start 06/08/17 at 04 :00 Pantoprazole (Protonix Iv) 40 mg DAILY@06 IV Last administered on 06/08/17 06: 12; Admin Dose 40 MG; Start 06/08/17 at 06:00 Heparin Sodium (Porcine) 5000 unit 5,000 unit Q8 SC Last administered on 07:12; Admin Dose 5,000 UNIT; Start 06/08/17 at 06:00 Meropenem/Sodium Chloride (Merrem 1 Gm/50 ml (Pmx)) 50 ml @ 100 mls/hr Q8 IVPB Last administered on 06/08/17 08:06; Admin Dose 100 MLS/HR; Start 06/08/17 at 06:00 Hydralazine HCl (Apresoline) 10 mg Q4H PRN IV ELEVATED SYSTOLIC BP; Start 06/08 at 04:30 Diagnostic Test (Pha) 1 ea 1 ea 02 XX ; Start 06/09/17 at 02:00 Vancomycin HCl/ Sodium Chloride (Vancocin/NS) 250 ml @ 83.333 mls/ hr Q12H IVPB ; Start 06/08/17 at 19:00 Povidone Iodine 1 applic 1 applic DAILY TOP Last administered on 06/08/17 08: 59; Admin Dose 1 APPLIC; Start 06/08/17 at 09:00 Magnesium Sulfate (Magnesium Sulfate 4 Gm/100 ml) 100 ml @ 25 mls/hr ONCE ONCE IVPB Last administered on 06/08/17 11:39; Admin Dose 25 MLS/HR; Start at 12:00; Stop 06/08/17 at 15:59 Potassium Chloride (Klor-Con 20) 40 meq ONCE ONCE PO ; Start 06/08/17 at 16:00 ; Stop 06/08/17 at 16:01 Procedures Procedures PROCEDURE: XR Chest. CLINICAL INDICATION: Shortness of breath TECHNIQUE: Portable single view of the chest COMPARISON: 06/08/2017 FINDINGS: Bihilar infiltrates or edema are again seen, slightly increased in the right upper lobe. Mild cardiomegaly. No large effusion. Top normal pulmonary vascularity. IMPRESSION: Slight increase in right upper lobe infiltrate or edema. Otherwise similar appearance. RPTAT: HLBE Physician Sebastian Date Time Electronically viewed and signed by Katie Avery, Physician on 06/08/2017 04 :43 LORENA WATKINS Jun 08, 2017 12:02
[2017-06-08 12:18] LABS: Allen Test ACCEPTAB; Arterial Base Excess -3.7 mmol/L (-3.0-3); Arterial COHb 0.3 % (0.0-3.0); Arterial Fraction of Oxyhgb 98.5 % (93.0-99.0); Arterial HCO3 20.3 mmol/L (22.0-26.0); Arterial MetHb 0.2 % (0.0-1.5); Arterial Total Hemglobin 12.6 g/dl (12.0-18.0); Blood Gas IEPAP 18/8; Blood Gas PS 10; MODE BIPAP
[2017-06-08] MEDS ORDERED: ALTEPLASE (CATHFLO) 2 MG INJ CATHETER PRN (13:30)
[2017-06-08 13:52] LABS: TROPONIN-I 0.045 ng/ml (0.00-0.12)
[2017-06-08] MEDS ORDERED: POTASSIUM CHLORIDE (SR) 20 MEQ TAB PO ONE (16:00)
[2017-06-08] MEDS ORDERED: LORAZEPAM 2 MG INJ ONE (19:22)
[2017-06-08] MEDS: hydrALAzine 20 MG INJ IV PRN (19:24)
[2017-06-08] MEDS ORDERED: LORAZEPAM 2 MG INJ IV PRN (19:30)
[2017-06-08] MEDS: VANCOMYCIN 1.5 GM in SOD CHLORIDE 0.9% 250 ML IVPB SCH (19:36)
--- NOTE | 2017-06-08 20:17 | RADRPT ---
PROCEDURE: Portable chest x-ray. CLINICAL INDICATION: 60 years of age, male. New onset CHF. TECHNIQUE: Portable AP view of the chest. COMPARISON: None available. FINDINGS: The aortic contour is normal. Enlarged cardiopericardial silhouette. There is extensive diffuse bilateral lung consolidation with a perihilar predominance in keeping wit h air space pulmonary edema. Consolidation is greater on the right. Negative for pleural effusion or pneumothorax. No acute bony abnormality. IMPRESSION: Extensive diffuse bilateral lung consolidation with a perihilar distribution in keeping with air spa ce pulmonary edema. Enlarged cardiopericardial silhouette. RPTAT: HCTS Physician Dominik Date Time Electronically viewed and signed by Physician Dominik on 06/08/2017 20:17 /
[2017-06-08] MEDS: ATORVASTATIN 10 MG TAB PO SCH (21:14)
[2017-06-09] VITALS (36 sets, daily range): BP systolic 80–163; BP diastolic 53–88; PULSE 64–86; RESP 17–33
[2017-06-09] MEDS: ACETAMINOPHEN 325 MG TAB PO PRN ×2 (01:12→08:49)
[2017-06-09] MEDS: ACCU-CHEK XX SCH (02:00)
[2017-06-09] MEDS: HEPARIN 5,000 UNIT/0.5 ML VIAL SC SCH ×3 (05:50→21:42)
[2017-06-09] MEDS: PANTOPRAZOLE (EC) 40 MG TAB PO SCH (05:50)
[2017-06-09 06:25] LABS: BASOPHIL # 0.1 10^3/ul (0.0-0.1); BASOPHILS % 0.4 % (0.0-2.0); EOSINOPHILS % 0.1 % (0.0-7.0); HEMATOCRIT 30.3 % (42.0-52.0); HEMOGLOBIN 10.1 g/dl (14.0-18.0); LYMPHOCYTES # 1.3 10^3/ul (0.8-2.9); LYMPHOCYTES % 8.6 % (15.0-51.0); MEAN CORPUSCULAR HGB CONC 33.3 g/dl (32.0-37.0); MEAN PLATELET VOLUME 11.1 fl (7.4-10.4); MONOCYTE # 0.9 10^3/ul (0.3-0.9); MONOCYTES % 5.9 % (0.0-11.0); NEUTROPHILS % 84.7 % (39.0-77.0); PLATELET COUNT 166 10^3/UL (140-415); RED BLOOD COUNT 3.74 10^6/ul (4.70-6.10); RED CELL DISTRIBUTION WIDTH 14.4 % (11.5-14.5); WHITE BLOOD COUNT 14.5 10^3/ul (4.8-10.8)
[2017-06-09] MEDS: VANCOMYCIN 1.5 GM in SOD CHLORIDE 0.9% 250 ML IVPB SCH ×2 (06:55→19:47)
[2017-06-09 07:21] LABS: MAGNESIUM 2.3 mg/dl (1.7-2.5); PHOSPHORUS 4.2 mg/dl (2.5-4.9)
[2017-06-09 07:23] LABS: CALCIUM 8.3 mg/dl (8.4-10.2); CREATININE 0.81 mg/dl (0.61-1.24); POTASSIUM 3.4 mmol/L (3.5-5.1)
[2017-06-09 07:28] LABS: TROPONIN-I 0.042 ng/ml (0.00-0.12)
[2017-06-09 07:33] LABS: BILIRUBIN,INDIRECT 1.1 mg/dl (0-1.1); BILIRUBIN,TOTAL 1.1 mg/dl (0.2-1.3); TOTAL PROTEIN 6.2 g/dl (6.1-8.1)
[2017-06-09] MEDS: INSULIN ASPART [NOVOLOG] 3 ML PEN SC SCH ×4 (07:35→21:00)
[2017-06-09] MEDS: MEROPENEM 1 GM/50ML(PMX) 50 ML IVPB SCH ×3 (08:46→22:30)
[2017-06-09] MEDS: VITAMIN E 400 UNITS CAP PO SCH (08:47)
[2017-06-09] MEDS: metFORMIN 500 MG TAB PO SCH ×2 (08:48→17:35)
[2017-06-09] MEDS: LISINOPRIL 20 MG TAB PO SCH ×2 (08:48→21:37)
[2017-06-09] MEDS: LACTOBACILLUS RHAMNOSUS CAP PO SCH ×2 (08:49→21:34)
[2017-06-09] MEDS: MULTIVITAMINS THERAPEUTIC TAB PO SCH (08:49)
[2017-06-09] MEDS: ASPIRIN 81 MG TAB PO SCH (08:49)
[2017-06-09] MEDS: VERAPAMIL (SR) 180 MG TAB PO SCH (09:08)
[2017-06-09] MEDS: POVIDONE IODINE 10% 28.4 GM OINT TOP SCH (09:09)
[2017-06-09] MEDS ORDERED: POTASSIUM CHLORIDE (SR) 20 MEQ TAB PO STA (09:33)
--- NOTE | 2017-06-09 10:02 | PN ---
Date/Time of Note Date/Time of Note DATE: 06/09/17 TIME: 09:49 Assessment/Plan VTE Prophylaxis VTE Prophylaxis Intervention: heparin Lines/Catheters IV Catheter Type (from Nrs): PICC Line Central line still needed: Yes (for IV access ) Urinary Cath still in place: Yes Reason Cath still needed: other (indicate) (strict i/o) Assessment/Plan Assessment/Plan 56 yo male with: 1. Acute respiratory failure, required BiPAP for a few hours again last night.. again sounds clear on exam and off BIPAP this AM again Likely episode secondary to CHF exacerbation also seems like patient has a right middle lobe pneumonia on chest x-ray and possible episodes of bronchospasms, Repeat echocardiogram pending as patient seems to have mostly diastolic dysfunction based on his previous echocardiogram. BP much better controlled Continue diuresis, strict I's and O's Continue supplemental oxygen will keep titrating his O2 requirement down he is on 4 L nasal cannula again. Cardiac enzymes negative CTA chest pending today 2. Hypertension, uncontrolled on admission, better controlled BP this AM Titrate and add medications as needed for blood pressure. Continue diuresis 3. Pneumonia, possibly healthcare associated versus community-acquired, patient has been on vancomycin as an outpatient already, this will be continued , Also on Meropenem currently. Bloos cx 1/2 with GPC. Will repeat blood cx x2 Lactic acid normalized. On 4 L nasal cannula now. CTA chest today. ? PICC line change 4. Right Diabetic foot infection, previous MRI consistent with osteomyelitis of second toe, myositis and also tenosynovitis, On his last admission the recommendation was for patient to remain on long-term IV antibiotics as patient not keen on surgical amputation. He does have a PICC line in place, he is to complete a six-week course of antibiotics per infectious disease and podiatry. 5. Diabetes mellitus: A1c of 6.1, continue outpatient regimen at that time including metformin for now. Sliding scale insulin and diabetic diet. 6. Hyperlipidemia : Continue statin therapy. Prophylaxis : Lovenox for DVT prophylaxis, Pepcid for GI prophylaxis. Disposition : Patient back in ICU and to be kept overnight, CTA chest pending Diuresis and nebs prn. Subjective 24 Hr Interval Summary Free Text/Dictation Overnight event noted, patient had to come back down to ICU due to acute respiratory distress again, now doing OK this AM, off BiPAP, clear on exam but still SOB, CTA chest pending this AM Afebrile BP much better controlled Exam/Review of Systems Vital Signs Vitals Vital Signs Date Time Temp Pulse Resp B/P Pulse Ox O2 Delivery O2 Flow Rate FiO2 06/09/17 08:00 74 06/09/17 07:00 24 109/56 100 BIPAP 06/09/17 06:10 60 06/09/17 06:00 98.0 06/08/17 18:00 4.0 Intake and Output 06/08/17 06/08/17 06/09/17 15:00 23:00 07:00 Intake Total 1630 ml 1100.000 ml 450 ml Output Total 1630 ml 1075 ml 310 ml Balance 0 ml 25.000 ml 140 ml Exam Constitutional: alert, oriented, well developed Cardiovascular: nl pulses, regular rate and rhythm Gastrointestinal: non-tender, soft Musculoskeletal: nl extremities to inspection Extremities: edema (+1 edema ), normal pulses, other (No clubbing or cyanosis ) 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, nl mental status, nl speech, nl strength Results Result Diagram: 06/09/17 0610 06/09/17 0610 Results 24 hrs Laboratory Tests Test 06/08/17 12:15 06/08/17 13:07 06/08/17 17:14 06/08/17 21:28 Bedside Glucose 201 165 196 Creatine Kinase 74 Creatine Kinase Index 1.4 Creatinine Kinase MB (Mass) 1.00 Troponin I 0.045 Test 06/09/17 02:54 06/09/17 06:10 06/09/17 08:08 Bedside Glucose 170 142 White Blood Count 14.5 H Red Blood Count 3.74 L Hemoglobin 10.1 L Hematocrit 30.3 L Mean Corpuscular Volume 81.0 L Mean Corpuscular Hemoglobin 27.0 L Mean Corpuscular Hemoglobin Concent 33.3 Red Cell Distribution Width 14.4 Platelet Count 166 Mean Platelet Volume 11.1 H Neutrophils % 84.7 H Lymphocytes % 8.6 L Monocytes % 5.9 Eosinophils % 0.1 Basophils % 0.4 Nucleated Red Blood Cells % 0.0 Neutrophils # (Manual) 12 H Lymphocytes # 1.3 Monocytes # 0.9 Eosinophils # 0.0 Basophils # 0.1 Nucleated Red Blood Cells # 0.0 Sodium Level 133 L Potassium Level 3.4 L Chloride Level 97 Carbon Dioxide Level 29 Anion Gap 10 # Blood Urea Nitrogen 27 H Creatinine 0.81 Glucose Level 154 Calcium Level 8.3 L Phosphorus Level 4.2 Magnesium Level 2.3 Total Bilirubin 1.1 Direct Bilirubin 0.00 Indirect Bilirubin 1.1 Aspartate Amino Transf (AST/SGOT) 19 Alanine Aminotransferase (ALT/SGPT) 29 Alkaline Phosphatase 54 Troponin I 0.042 Total Protein 6.2 # Albumin 3.0 L Medications Medications Current Medications Aspirin (Aspirin) 81 mg DAILY PO Last administered on 06/09/17 08:49; Admin Dose 81 MG; Start 06/08/17 at 09:00 Carvedilol (Coreg) 6.25 mg Q12 PO Last administered on 06/09/17 08:49; Admin Dose 6.25 MG; Start 06/08/17 at 09:00 Lactobacillus Acidophilus/ Rhamnosus (Culturelle) 1 cap BID PO Last administered on 06/09/17 08:49; Admin Dose 1 CAP; Start 06/08/17 at 09:00 Lisinopril (Zestril) 40 mg BID PO Last administered on 06/09/17 08:48; Admin Dose 40 MG; Start 06/08/17 at 09:00 Multivitamins Therapeutic (Theragran) 1 tab DAILY PO Last administered on 08:49; Admin Dose 1 TAB; Start 06/08/17 at 09:00 Verapamil HCl (Isoptin Sr) 360 mg DAILY PO Last administered on 06/09/17 09:08 ; Admin Dose 360 MG; Start 06/08/17 at 09:00 Vitamin E (Vitamin E) 400 units DAILY PO Last administered on 06/09/17 08:47; Admin Dose 400 UNITS; Start 06/08/17 at 09:00 Atorvastatin Calcium (Lipitor) 10 mg DAILY@21 PO Last administered on 21:14; Admin Dose 10 MG; Start 06/08/17 at 21:00 Ondansetron HCl (Zofran Inj) 4 mg Q6H PRN IV NAUSEA AND/OR VOMITING; Start at 04:00 Nitroglycerin (Nitroglycerin (Sl Tab) 0.4 Mg) 1 tab Q5M PRN SL CHEST PAIN; Start 06/08/17 at 04:00 Acetaminophen (Tylenol Tab) 650 mg Q6H PRN PO PAIN LEVEL 1-3 OR FEVER Last administered on 06/09/17 08:49; Admin Dose 650 MG; Start 06/08/17 at 04:00 Acetaminophen/ Hydrocodone Bitart ([place] (5/325)) 1 tab Q6H PRN PO PAIN LEVEL 4 -6; Start 06/08/17 at 04:00 Acetaminophen/ Hydrocodone Bitart ([place] (5/325)) 2 tab Q6H PRN PO PAIN LEVEL 7 -10 Last administered on 06/08/17 05:04; Admin Dose 2 TAB; Start 06/08/17 at 04 :00 Morphine Sulfate (morphine) 2 mg Q4H PRN IV PAIN LEVEL 7-10 Last administered on 06/08/17 19:58; Admin Dose 2 MG; Start 06/08/17 at 04:00 Docusate Sodium (Colace) 100 mg Q12H PRN PO CONSTIPATION; Start 06/08/17 at 04: 00 Magnesium Hydroxide (Milk Of Mag) 30 ml DAILY PRN PO CONSTIPATION; Start at 04:00 Bisacodyl (Dulcolax Supp) 10 mg DAILY PRN [place] CONSTIPATION; Start 06/08/17 at 04 :00 Heparin Sodium (Porcine) 5000 unit 5,000 unit Q8 SC Last administered on 05:50; Admin Dose 5,000 UNIT; Start 06/08/17 at 06:00 Meropenem/Sodium Chloride (Merrem 1 Gm/50 ml (Pmx)) 50 ml @ 100 mls/hr Q8 IVPB Last administered on 06/09/17 08:46; Admin Dose 100 MLS/HR; Start 06/08/17 at 06:00 Hydralazine HCl (Apresoline) 10 mg Q4H PRN IV ELEVATED SYSTOLIC BP Last administered on 06/08/17 19:24; Admin Dose 10 MG; Start 06/08/17 at 04:30 Diagnostic Test (Pha) 1 ea 1 ea 02 XX ; Start 06/09/17 at 02:00 Vancomycin HCl/ Sodium Chloride (Vancocin/NS) 250 ml @ 83.333 mls/ hr Q12H IVPB Last administered on 06/09/17 06:55; Admin Dose 83.333 MLS/HR; Start at 19:00 Povidone Iodine (Povidone-Iodine) 1 applic DAILY TOP Last administered on 09:09; Admin Dose 1 APPLIC; Start 06/08/17 at 09:00 Pantoprazole (Protonix Tab) 40 mg DAILY@06 PO Last administered on 06/09/17 05 :50; Admin Dose 40 MG; Start 06/09/17 at 06:00 Lorazepam (Ativan) 2 mg Q6H PRN IV AGITATION/ANXIETY Last administered on 19:35; Admin Dose 2 MG; Start 06/08/17 at 19:30 LORENA WATKINS Jun 09, 2017 09:59
[2017-06-09] MEDS ORDERED: IODIXANOL LOCM 50 ML BTL ONE (10:10)
[2017-06-09] MEDS ORDERED: SOD CHLORIDE 0.9% 100 ML ONE (10:10)
[2017-06-09] MEDS ORDERED: IODIXANOL LOCM 100 ML BTL ONE (10:10)
[2017-06-09] MEDS: FUROSEMIDE 40 MG INJ IV SCH ×2 (10:50→19:46)
--- NOTE | 2017-06-09 11:06 | RADRPT ---
PROCEDURE: CTA Chest CLINICAL INDICATION: Chest pain, hypertension TECHNIQUE: CTA of the chest was performed following the uncomplicated IV administration of 110 cc Visipaque 320. Coronal and sagittal images were reconstructed from the axial data set. 3-D volumet bandar rendered post processing was performed as well. One or more of the following dose reduction nam hniques were used: automated exposure control, adjustment of the mA and/or kV according to patient s ize, use of iterative reconstruction technique. CTDI = 18.19 mGy. DLP = 816.16 mGy-cm. COMPARISON: Chest x-ray, 06/08/2017 FINDINGS: No filling defect is present to suggest pulmonary embolism. There is no evidence for pulmonary janie rial hypertension. Extensive bilateral perihilar ground-glass opacity and septal thickening is seen, suggestive of jose manuel re pulmonary edema. There are mild to moderate bilateral pleural effusions. No pneumothorax is kamar ntified. The central tracheobronchial tree is clear. No gross evidence of pulmonary nodule or mass is identified. The heart is borderline enlarged, without significant pericardial fluid. Coronary arterial and aort ic atherosclerotic calcifications are present. There is no thoracic aortic aneurysm or dissection. Prominent mediastinal and hilar lymph nodes are noted, likely reactive. No axillary or supraclavic ular lymphadenopathy is identified. Left-sided PICC line tip is in the SVC. Visualized portions of the upper abdomen demonstrate no acute abnormality. The osseous structures a re remarkable for degenerative spondylosis of the spine. No osteolytic or osteoblastic lesion is see n. IMPRESSION: 1. Findings suggestive of severe pulmonary edema, as discussed above. Superimposed infection/pneum onia is not excluded. There are mild to moderate bilateral pleural effusions. 2. Borderline cardiomegaly is noted. Coronary arterial and aortic atherosclerotic calcifications a re present. 3. No pulmonary embolism is identified. 4. Left-sided PICC line tip is in the SVC. RPTAT: EE .Jordan Bean MD, Date Time Electronically viewed and signed by .Jordan Bean MD, MD on 06/09/2017 11:06 .R/
[2017-06-09] MEDS ORDERED: NORepinephrine 8MG/250 ML (PMX 250 ML IV SCH (20:00)
[2017-06-09] MEDS: ATORVASTATIN 10 MG TAB PO SCH (21:35)
[2017-06-10] VITALS (22 sets, daily range): BP systolic 95–144; BP diastolic 51–82; PULSE 64–85; RESP 15–34
[2017-06-10] MEDS: ACCU-CHEK XX SCH (02:00)
[2017-06-10] MEDS: ALBUTEROL/IPRATROPIUM (NEB) 3 ML AMP NEB PRN (05:00)
[2017-06-10 05:23] LABS: BASOPHIL # 0.1 10^3/ul (0.0-0.1); BASOPHILS % 0.6 % (0.0-2.0); EOSINOPHILS % 0.1 % (0.0-7.0); HEMATOCRIT 28.3 % (42.0-52.0); HEMOGLOBIN 9.4 g/dl (14.0-18.0); LYMPHOCYTES # 1.3 10^3/ul (0.8-2.9); MEAN CORPUSCULAR HEMOGLOBIN 27.3 pg (29.0-33.0); MEAN CORPUSCULAR HGB CONC 33.2 g/dl (32.0-37.0); MEAN CORPUSCULAR VOLUME 82.3 fl (82.0-101.0); MEAN PLATELET VOLUME 12.1 fl (7.4-10.4); MONOCYTE # 0.7 10^3/ul (0.3-0.9); MONOCYTES % 7.3 % (0.0-11.0); NEUTROPHILS % 77.5 % (39.0-77.0); PLATELET COUNT 171 10^3/UL (140-415); RED BLOOD COUNT 3.44 10^6/ul (4.70-6.10); RED CELL DISTRIBUTION WIDTH 14.4 % (11.5-14.5); WHITE BLOOD COUNT 9.6 10^3/ul (4.8-10.8)
[2017-06-10 05:43] LABS: MAGNESIUM 2.2 mg/dl (1.7-2.5); PHOSPHORUS 3.4 mg/dl (2.5-4.9)
[2017-06-10 05:48] LABS: ALBUMIN 2.7 g/dl (3.3-4.9); ALBUMIN/GLOBULIN RATIO 0.81; BILIRUBIN,INDIRECT 0.8 mg/dl (0-1.1); BILIRUBIN,TOTAL 0.8 mg/dl (0.2-1.3); CALCIUM 8.2 mg/dl (8.4-10.2); CREATININE 0.86 mg/dl (0.61-1.24); POTASSIUM 3.5 mmol/L (3.5-5.1)
[2017-06-10] MEDS: MEROPENEM 1 GM/50ML(PMX) 50 ML IVPB SCH ×3 (06:17→21:00)
[2017-06-10] MEDS: PANTOPRAZOLE (EC) 40 MG TAB PO SCH (06:17)
[2017-06-10] MEDS: FUROSEMIDE 40 MG INJ IV SCH ×2 (06:18→18:23)
[2017-06-10] MEDS: HEPARIN 5,000 UNIT/0.5 ML VIAL SC SCH ×3 (06:26→22:00)
[2017-06-10] MEDS: VANCOMYCIN 1.5 GM in SOD CHLORIDE 0.9% 250 ML IVPB SCH ×2 (07:03→18:23)
[2017-06-10] MEDS: metFORMIN 500 MG TAB PO SCH ×2 (07:21→17:17)
[2017-06-10] MEDS: INSULIN ASPART [NOVOLOG] 3 ML PEN SC SCH ×4 (07:35→20:55)
[2017-06-10] MEDS: LACTOBACILLUS RHAMNOSUS CAP PO SCH ×2 (08:18→20:48)
[2017-06-10] MEDS: VITAMIN E 400 UNITS CAP PO SCH (08:18)
[2017-06-10] MEDS: MULTIVITAMINS THERAPEUTIC TAB PO SCH (08:18)
[2017-06-10] MEDS: LISINOPRIL 20 MG TAB PO SCH ×2 (08:19→20:48)
[2017-06-10] MEDS: ASPIRIN 81 MG TAB PO SCH (08:20)
[2017-06-10] MEDS: VERAPAMIL (SR) 180 MG TAB PO SCH (08:20)
[2017-06-10] MEDS: POVIDONE IODINE 10% 28.4 GM OINT TOP SCH (08:20)
[2017-06-10] MEDS ORDERED: POTASSIUM CHLORIDE (SR) 20 MEQ TAB PO STA (09:10)
--- NOTE | 2017-06-10 09:39 | PN ---
Date/Time of Note Date/Time of Note DATE: 06/10/17 TIME: 09:13 Assessment/Plan VTE Prophylaxis VTE Prophylaxis Intervention: heparin Lines/Catheters IV Catheter Type (from Nrs): PICC Line Central line still needed: Yes (to be removed ) Urinary Cath still in place: Yes Reason Cath still needed: other (indicate) (diuresing, stric i/o) Assessment/Plan Assessment/Plan 56 yo male with: 1. Acute respiratory failure, required BiPAP overnight again .. again sounds clear on exam and off BIPAP this AM again but CTA chest with pulmonary edema, ongoing CHF exacerbation also seems like patient has a right middle lobe pneumonia on chest x-ray and possible episodes of bronchospasms. Blood cx back with Staph .. Concerns for Endocarditis, repeat echo to be done, discussed with Cardio and patient may need a NORMA BP much better controlled Continue diuresis, strict I's and O's Continue supplemental oxygen will keep titrating his O2 requirement down he is on 4 L nasal cannula again. Continue Vanco, repeat blood cx and PICC line to be removed. 2. Hypertension, uncontrolled on admission, better controlled BP this AM Titrate and add medications as needed for blood pressure. Continue diuresis 3. Pneumonia, possibly healthcare associated versus community-acquired, patient has been on vancomycin as an outpatient already, this will be continued , Also on Meropenem currently. Bloos cx 2/2 with Staph, PICC line to be removed, repeat blood cx x2 sent yesterday. Lactic acid normalized. On 4 L nasal cannula this AM again. 4. Right Diabetic foot infection, previous MRI consistent with osteomyelitis of second toe, myositis and also tenosynovitis, On his last admission the recommendation was for patient to remain on long-term IV antibiotics as patient not keen on surgical amputation. He does have a PICC line in place which will be removed today He is to complete a 6-week course of antibiotics per infectious disease and podiatry. 5. Diabetes mellitus: A1c of 6.1, continue outpatient regimen at that time including metformin for now. Sliding scale insulin and diabetic diet. 6. Hyperlipidemia : Continue statin therapy. Prophylaxis : Lovenox for DVT prophylaxis, Pepcid for GI prophylaxis. Disposition : Patient back in ICU, may need NORMA so keeping in ICU for now, Diuresis and nebs prn. Will have NPO in case need a NORMA later today. Subjective 24 Hr Interval Summary Free Text/Dictation BIPAP overnight noted, CTA chest, no PE and pulmonary edema still Now on 4L NC with good sats on diuresis Afebrile and WBC back down to normal Blood cx 11/17 on admission with Jad d/c PICC and send tip for cx and line vacation for at least 48 hrs and negative repeat blood cx prior to new PICC line placement next week. Also repeat Echo pending Exam/Review of Systems Vital Signs Vitals Vital Signs Date Time Temp Pulse Resp B/P Pulse Ox O2 Delivery O2 Flow Rate FiO2 06/10/17 06:00 70 21 130/79 100 BIPAP 06/10/17 05:12 40 06/10/17 05:01 4.0 06/10/17 04:00 98.5 Intake and Output 06/09/17 06/09/17 06/10/17 15:00 23:00 07:00 Intake Total 950 ml 1100.000 ml 110 ml Output Total 510 ml 1690 ml 1000 ml Balance 440 ml -590.000 ml -890 ml Exam Constitutional: alert, oriented, well developed Respiratory: clear to auscultation, normal air movement Cardiovascular: nl pulses, regular rate and rhythm Gastrointestinal: non-tender, soft Musculoskeletal: other (no edema, clubbing or cyanosis ) Extremities: normal pulses, other (diabetic ulcers stable ) 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, nl mental status, nl speech, nl strength Results Result Diagram: 06/10/17 0415 06/10/17 0415 Results 24 hrs Laboratory Tests Test 06/09/17 11:18 06/09/17 17:26 06/09/17 18:05 06/09/17 21:41 Bedside Glucose 185 275 H 177 Vancomycin Level Trough 15.2 Test 06/10/17 04:15 06/10/17 07:45 White Blood Count 9.6 # Red Blood Count 3.44 L Hemoglobin 9.4 L Hematocrit 28.3 L Mean Corpuscular Volume 82.3 Mean Corpuscular Hemoglobin 27.3 L Mean Corpuscular Hemoglobin Concent 33.2 Red Cell Distribution Width 14.4 Platelet Count 171 Mean Platelet Volume 12.1 H Neutrophils % 77.5 H Lymphocytes % 14.0 L Monocytes % 7.3 Eosinophils % 0.1 Basophils % 0.6 Nucleated Red Blood Cells % 0.0 Neutrophils # (Manual) 7.4 Lymphocytes # 1.3 Monocytes # 0.7 Eosinophils # 0.0 Basophils # 0.1 Nucleated Red Blood Cells # 0.0 Sodium Level 134 L Potassium Level 3.5 Chloride Level 96 L Carbon Dioxide Level 29 Anion Gap 13 Blood Urea Nitrogen 33 H Creatinine 0.86 Glucose Level 121 Calcium Level 8.2 L Phosphorus Level 3.4 Magnesium Level 2.2 Total Bilirubin 0.8 Direct Bilirubin 0.00 Indirect Bilirubin 0.8 Aspartate Amino Transf (AST/SGOT) 64 #H Alanine Aminotransferase (ALT/SGPT) 82 H Alkaline Phosphatase 59 Total Protein 6.0 L Albumin 2.7 L Globulin 3.30 H Albumin/Globulin Ratio 0.81 Bedside Glucose 109 Medications Medications Current Medications Aspirin (Aspirin) 81 mg DAILY PO Last administered on 06/10/17 08:20; Admin Dose 81 MG; Start 06/08/17 at 09:00 Carvedilol (Coreg) 6.25 mg Q12 PO Last administered on 06/10/17 08:19; Admin Dose 6.25 MG; Start 06/08/17 at 09:00 Lactobacillus Acidophilus/ Rhamnosus (Culturelle) 1 cap BID PO Last administered on 06/10/17 08:18; Admin Dose 1 CAP; Start 06/08/17 at 09:00 Lisinopril (Zestril) 40 mg BID PO Last administered on 06/10/17 08:19; Admin Dose 40 MG; Start 06/08/17 at 09:00 Multivitamins Therapeutic (Theragran) 1 tab DAILY PO Last administered on 08:18; Admin Dose 1 TAB; Start 06/08/17 at 09:00 Verapamil HCl (Isoptin Sr) 360 mg DAILY PO Last administered on 06/10/17 08:20 ; Admin Dose 360 MG; Start 06/08/17 at 09:00 Vitamin E (Vitamin E) 400 units DAILY PO Last administered on 06/10/17 08:18; Admin Dose 400 UNITS; Start 06/08/17 at 09:00 Atorvastatin Calcium (Lipitor) 10 mg DAILY@21 PO Last administered on 21:35; Admin Dose 10 MG; Start 06/08/17 at 21:00 Ondansetron HCl (Zofran Inj) 4 mg Q6H PRN IV NAUSEA AND/OR VOMITING; Start at 04:00 Nitroglycerin (Nitroglycerin (Sl Tab) 0.4 Mg) 1 tab Q5M PRN SL CHEST PAIN; Start 06/08/17 at 04:00 Acetaminophen (Tylenol Tab) 650 mg Q6H PRN PO PAIN LEVEL 1-3 OR FEVER Last administered on 06/09/17 08:49; Admin Dose 650 MG; Start 06/08/17 at 04:00 Acetaminophen/ Hydrocodone Bitart ([place] (5/325)) 1 tab Q6H PRN PO PAIN LEVEL 4 -6; Start 06/08/17 at 04:00 Acetaminophen/ Hydrocodone Bitart ([place] (5/325)) 2 tab Q6H PRN PO PAIN LEVEL 7 -10 Last administered on 06/08/17 05:04; Admin Dose 2 TAB; Start 06/08/17 at 04 :00 Morphine Sulfate (morphine) 2 mg Q4H PRN IV PAIN LEVEL 7-10 Last administered on 06/08/17 19:58; Admin Dose 2 MG; Start 06/08/17 at 04:00 Docusate Sodium (Colace) 100 mg Q12H PRN PO CONSTIPATION; Start 06/08/17 at 04: 00 Magnesium Hydroxide (Milk Of Mag) 30 ml DAILY PRN PO CONSTIPATION; Start at 04:00 Bisacodyl (Dulcolax Supp) 10 mg DAILY PRN [place] CONSTIPATION; Start 06/08/17 at 04 :00 Heparin Sodium (Porcine) 5000 unit 5,000 unit Q8 SC Last administered on 06:26; Admin Dose 5,000 UNIT; Start 06/08/17 at 06:00 Meropenem/Sodium Chloride (Merrem 1 Gm/50 ml (Pmx)) 50 ml @ 100 mls/hr Q8 IVPB Last administered on 06/10/17 06:17; Admin Dose 100 MLS/HR; Start 06/08/17 at 06:00 Hydralazine HCl (Apresoline) 10 mg Q4H PRN IV ELEVATED SYSTOLIC BP Last administered on 06/08/17 19:24; Admin Dose 10 MG; Start 06/08/17 at 04:30 Diagnostic Test (Pha) 1 ea 1 ea 02 XX ; Start 06/09/17 at 02:00 Vancomycin HCl/ Sodium Chloride (Vancocin/NS) 250 ml @ 83.333 mls/ hr Q12H IVPB Last administered on 06/10/17 07:03; Admin Dose 83.333 MLS/HR; Start at 19:00 Povidone Iodine (Povidone-Iodine) 1 applic DAILY TOP Last administered on 08:20; Admin Dose 1 APPLIC; Start 06/08/17 at 09:00 Pantoprazole (Protonix Tab) 40 mg DAILY@06 PO Last administered on 06/10/17 06 :17; Admin Dose 40 MG; Start 06/09/17 at 06:00 Lorazepam 2 mg 2 mg Q6H PRN IV AGITATION/ANXIETY Last administered on 19:35; Admin Dose 2 MG; Start 06/08/17 at 19:30 Norepinephrine (Levophed) 250 ml @ 1.875 mls/ hr TITRATE IV ; Start 06/09/17 at 20:00 LORENA WATKINS Jun 10, 2017 09:24
--- NOTE | 2017-06-10 13:32 | CONS ---
Date/Time of Note Date/Time of Note DATE: 06/10/17 TIME: 13:23 Assessment/Plan Assessment/Plan Additional Assessment/Plan Acute Resp failure due to acute CHF HTN PNA Right diabetic foot infection -continue abx -good diureisis with Iv lasix -continue cv meds -+staph aureus, so will review echo and if necessary will consider NORMA 05/26 EF 50% 1. Acute respiratory failure, required BiPAP overnight again .. again sounds clear on exam and off BIPAP this AM again but CTA chest with pulmonary edema, ongoing CHF exacerbation also seems like patient has a right middle lobe pneumonia on chest x-ray and possible episodes of bronchospasms. Blood cx back with Staph .. Concerns for Endocarditis, repeat echo to be done, discussed with Cardio and patient may need a NORMA BP much better controlled Continue diuresis, strict I's and O's Continue supplemental oxygen will keep titrating his O2 requirement down he is on 4 L nasal cannula again. Continue Vanco, repeat blood cx and PICC line to be removed. 2. Hypertension, uncontrolled on admission, better controlled BP this AM Titrate and add medications as needed for blood pressure. Continue diuresis 3. Pneumonia, possibly healthcare associated versus community-acquired, patient has been on vancomycin as an outpatient already, this will be continued , Also on Meropenem currently. Bloos cx 2/2 with Staph, PICC line to be removed, repeat blood cx x2 sent yesterday. Lactic acid normalized. On 4 L nasal cannula this AM again. 4. Right Diabetic foot infection, previous MRI consistent with osteomyelitis of second toe, myositis and also tenosynovitis, On his last admission the recommendation was for patient to remain on long-term IV antibiotics as patient not keen on surgical amputation. He does have a PICC line in place which will be removed today He is to complete a 6-week course of antibiotics per infectious disease and podiatry. 5. Diabetes mellitus: A1c of 6.1, continue outpatient regimen at that time including metformin for now. Sliding scale insulin and diabetic diet. 6. Hyperlipidemia : Continue statin therapy. Consultation Date/Type/Reason Admit Date/Time Jun 08, 2017 at 05:27 Hx of Present Illness History of presenting illness: This is a 56-year-old male with known diabetes mellitus, diabetic foot ulcers on his toes with documented tenosynovitis, myositis and osteomyelitis, currently on treatment with vancomycin and Levaquin who presented to the emergency department overnight with reported chills and difficulty breathing. Patient reports that since his discharge approximately 2 weeks ago, he has been doing fairly well at home. 2 days prior to this admission he actually went to a walk on the [facility], however 24 hours prior to admission he started having episodes of generalized aching, some shortness of breath, subjective fevers, and chills. Yesterday he woke up with some difficulty breathing and shortness of breath, it was not as bad as he states that worsened throughout the day therefore he came to the emergency department last night. In the emergency department patient was found to be in hypertensive emergency his systolic blood pressures were in the 260s according to the ER physician, patient was also febrile with temperature of 101.9, he progressed and severe respiratory distress requiring BiPAP, chest x-ray shows a signs of pulmonary edema but also possible underlying right-sided pneumonia. He was given Lasix 120 mg IV 1 by the ER physician, Heredia catheter placed. Patient is still diuresing this morning, he was admitted to intensive care unit overnight but currently he is off BiPAP on 4 L nasal cannula. Blood pressure is stable, he was on a nitro drip for a few hours in the ER until blood pressure control. He had a 2D echocardiogram on his last admission 05/26 with ejection fraction of 55% , given his acute episode and elevated BNP limited 2D echocardiogram is reordered to evaluate ejection fraction. He is antibiotics were broadened he is now on vancomycin but also meropenem. He feels better. I will further evaluate his echo to consder if NORMA is necessary due to recurrent CHF and +s. aureus to r/o endocaridtis Respiratory: shortness of breath Cardiovascular: no complaints Gastrointestinal: no complaints Genitourinary: no complaints Musculoskeletal: no complaints, other (Diabetic toe ulcers unchanged) Neurologic: no complaints Psychological: no complaints Past Surgical History Past Surgical Hx: no surgical history Social History Alcohol Use: none Smoking Status: Former smoker Drug Use: none Exam/Review of Systems Vital Signs Vitals Vital Signs Date Time Temp Pulse Resp B/P Pulse Ox O2 Delivery O2 Flow Rate FiO2 06/10/17 08:00 85 06/10/17 06:00 21 130/79 100 BIPAP 06/10/17 05:12 40 06/10/17 05:01 4.0 06/10/17 04:00 98.5 Intake and Output 06/09/17 06/09/17 06/10/17 15:00 23:00 07:00 Intake Total 950 ml 1100.000 ml 110 ml Output Total 510 ml 1690 ml 1000 ml Balance 440 ml -590.000 ml -890 ml Results Result Diagram: 06/10/17 0415 06/10/17 0415 Results 24 hrs Laboratory Tests Test 06/09/17 17:26 06/09/17 18:05 06/09/17 21:41 06/10/17 04:15 Bedside Glucose 275 H 177 Vancomycin Level Trough 15.2 White Blood Count 9.6 # Red Blood Count 3.44 L Hemoglobin 9.4 L Hematocrit 28.3 L Mean Corpuscular Volume 82.3 Mean Corpuscular Hemoglobin 27.3 L Mean Corpuscular Hemoglobin Concent 33.2 Red Cell Distribution Width 14.4 Platelet Count 171 Mean Platelet Volume 12.1 H Neutrophils % 77.5 H Lymphocytes % 14.0 L Monocytes % 7.3 Eosinophils % 0.1 Basophils % 0.6 Nucleated Red Blood Cells % 0.0 Neutrophils # (Manual) 7.4 Lymphocytes # 1.3 Monocytes # 0.7 Eosinophils # 0.0 Basophils # 0.1 Nucleated Red Blood Cells # 0.0 Sodium Level 134 L Potassium Level 3.5 Chloride Level 96 L Carbon Dioxide Level 29 Anion Gap 13 Blood Urea Nitrogen 33 H Creatinine 0.86 Glucose Level 121 Calcium Level 8.2 L Phosphorus Level 3.4 Magnesium Level 2.2 Total Bilirubin 0.8 Direct Bilirubin 0.00 Indirect Bilirubin 0.8 Aspartate Amino Transf (AST/SGOT) 64 #H Alanine Aminotransferase (ALT/SGPT) 82 H Alkaline Phosphatase 59 Total Protein 6.0 L Albumin 2.7 L Globulin 3.30 H Albumin/Globulin Ratio 0.81 Test 06/10/17 07:45 06/10/17 12:45 Bedside Glucose 109 169 Medications Medications Current Medications Aspirin (Aspirin) 81 mg DAILY PO Last administered on 06/10/17 08:20; Admin Dose 81 MG; Start 06/08/17 at 09:00 Carvedilol (Coreg) 6.25 mg Q12 PO Last administered on 06/10/17 08:19; Admin Dose 6.25 MG; Start 06/08/17 at 09:00 Lactobacillus Acidophilus/ Rhamnosus (Culturelle) 1 cap BID PO Last administered on 06/10/17 08:18; Admin Dose 1 CAP; Start 06/08/17 at 09:00 Lisinopril (Zestril) 40 mg BID PO Last administered on 06/10/17 08:19; Admin Dose 40 MG; Start 06/08/17 at 09:00 Multivitamins Therapeutic (Theragran) 1 tab DAILY PO Last administered on 08:18; Admin Dose 1 TAB; Start 06/08/17 at 09:00 Verapamil HCl (Isoptin Sr) 360 mg DAILY PO Last administered on 06/10/17 08:20 ; Admin Dose 360 MG; Start 06/08/17 at 09:00 Vitamin E (Vitamin E) 400 units DAILY PO Last administered on 06/10/17 08:18; Admin Dose 400 UNITS; Start 06/08/17 at 09:00 Atorvastatin Calcium (Lipitor) 10 mg DAILY@21 PO Last administered on 21:35; Admin Dose 10 MG; Start 06/08/17 at 21:00 Ondansetron HCl (Zofran Inj) 4 mg Q6H PRN IV NAUSEA AND/OR VOMITING; Start at 04:00 Nitroglycerin (Nitroglycerin (Sl Tab) 0.4 Mg) 1 tab Q5M PRN SL CHEST PAIN; Start 06/08/17 at 04:00 Acetaminophen (Tylenol Tab) 650 mg Q6H PRN PO PAIN LEVEL 1-3 OR FEVER Last administered on 06/09/17 08:49; Admin Dose 650 MG; Start 06/08/17 at 04:00 Acetaminophen/ Hydrocodone Bitart ([place] (5/325)) 1 tab Q6H PRN PO PAIN LEVEL 4 -6; Start 06/08/17 at 04:00 Acetaminophen/ Hydrocodone Bitart ([place] (5/325)) 2 tab Q6H PRN PO PAIN LEVEL 7 -10 Last administered on 06/08/17 05:04; Admin Dose 2 TAB; Start 06/08/17 at 04 :00 Morphine Sulfate (morphine) 2 mg Q4H PRN IV PAIN LEVEL 7-10 Last administered on 06/08/17 19:58; Admin Dose 2 MG; Start 06/08/17 at 04:00 Docusate Sodium (Colace) 100 mg Q12H PRN PO CONSTIPATION; Start 06/08/17 at 04: 00 Magnesium Hydroxide (Milk Of Mag) 30 ml DAILY PRN PO CONSTIPATION; Start at 04:00 Bisacodyl (Dulcolax Supp) 10 mg DAILY PRN [place] CONSTIPATION; Start 06/08/17 at 04 :00 Heparin Sodium (Porcine) 5000 unit 5,000 unit Q8 SC Last administered on 06:26; Admin Dose 5,000 UNIT; Start 06/08/17 at 06:00 Meropenem/Sodium Chloride (Merrem 1 Gm/50 ml (Pmx)) 50 ml @ 100 mls/hr Q8 IVPB Last administered on 06/10/17 06:17; Admin Dose 100 MLS/HR; Start 06/08/17 at 06:00 Hydralazine HCl (Apresoline) 10 mg Q4H PRN IV ELEVATED SYSTOLIC BP Last administered on 06/08/17 19:24; Admin Dose 10 MG; Start 06/08/17 at 04:30 Diagnostic Test (Pha) 1 ea 1 ea 02 XX ; Start 06/09/17 at 02:00 Vancomycin HCl/ Sodium Chloride (Vancocin/NS) 250 ml @ 83.333 mls/ hr Q12H IVPB Last administered on 06/10/17 07:03; Admin Dose 83.333 MLS/HR; Start at 19:00 Povidone Iodine (Povidone-Iodine) 1 applic DAILY TOP Last administered on 08:20; Admin Dose 1 APPLIC; Start 06/08/17 at 09:00 Pantoprazole (Protonix Tab) 40 mg DAILY@06 PO Last administered on 06/10/17 06 :17; Admin Dose 40 MG; Start 06/09/17 at 06:00 Lorazepam (Ativan) 2 mg Q6H PRN IV AGITATION/ANXIETY Last administered on 19:35; Admin Dose 2 MG; Start 06/08/17 at 19:30 ADITI MORRIS MD Jun 10, 2017 13:32
--- NOTE | 2017-06-10 13:47 | RADRPT ---
Echocardiogram Report Patient Name: BECKIE TONEY Gender: Male Date: 1960 Study Date: 10-Jun-2017 Gas Reverser: SHERICE Location: I Ref. Physician: TASHA WATKINS Quality: Good Procedures: Transthoracic echocardiogram with complete 2D, M-Mode, and doppler examination. Indications: r/o endocarditis. 2D/M Mode Doppler Measurement Value Normal Ranges Measurement Value Normal Ranges LVIDd 2D 5.1 3.5 - 5.6 cm AV Peak Neal 1.7 m/sec LVIDs 2D 3.4 2.1 - 4.1 cm AV Peak PG 11.0 mmHg FS 2D 32.9 % LVOT Peak Neal 1.3 m/sec LVPWd 2D 1.3 0.6 - 1.1 cm LVOT Peak PG 7.0 mmHg IVSd 2D 1.3 0.6 - 1.1 cm MV E Peak Neal 1.1 m/sec IVS/LVPW 2D 1.0 MV A Peak Neal 0.6 m/sec AoR Diam 2D 3.1 2.0 - 3.7 cm MV E/A 2.0 LA/Ao 2D 1 0 - 1 MV Decel Time 151 msec EDV 2D 131.0 cm3 MV E/A 2.0 ESV 2D 39.7 cm3 TR Peak Neal 2.5 m/sec LA Dimen 2D 4.4 2.3 - 4.0 cm TR Peak PG 25.0 mmHg RVSP 40.0 mmHg Findings Left Ventricle: Normal left ventricular systolic function. Normal left ventricular cavity size. Mild concentric left ventricular hypertrophy. Ejection fraction is visually estimated at 65 %. Tissue Doppler/Mitral Doppler indices are within normal limits. Right Ventricle: Normal right ventricular size. Normal right ventricular systolic function. Left Atrium: There is mild enlargement of left atrium. Right Atrium: There is mild enlargement of right atrium. Mitral Valve: Normal appearance of the mitral valve. Mild mitral annular calcification. Trace mitral regurgitation. Aortic Valve: Normal appearance of the aortic valve. No significant aortic stenosis or insufficiency. Tricuspid Valve: Normal appearance of the tricuspid valve. Estimated peak PA systolic pressure 40 mmHg. There is mild tricuspid regurgitation. Pulmonic Valve: Normal pulmonic valve appearance. Pericardium: Normal pericardium with no significant pericardial effusion. Aorta: Normal aortic root. IVC: Dilated IVC without respiratory collapse consistent with elevated right atrial pressure. Conclusions 1.Normal left ventricular systolic function. Normal left ventricular cavity size. Mild concentric left ventricular hypertrophy. Ejection fraction is visually estimated at 65 %. Tissue Doppler/Mitral Doppler indices are within normal limits. 2.Normal appearance of the mitral valve. Mild mitral annular calcification. Trace mitral regurgitation. 3.Normal appearance of the aortic valve. No significant aortic stenosis or insufficiency. 4.Normal appearance of the tricuspid valve. Estimated peak PA systolic pressure 40 mmHg. There is mild tricuspid regurgitation. 5.Normal pulmonic valve appearance. 6.Normal pericardium with no significant pericardial effusion. Electronically Signed By: Naye Ballesteros 10-Jun-2017 13:46:05 -0700 Patient Name: BECKIE TONEY Study Date: 10-Jun-2017 [id number]
--- NOTE | 2017-06-10 17:09 | RADRPT ---
Vent Rate: 77 bpm RR Interval: 0 msec OK Interval: 164 msec QRS Duration: 94 msec QT Interval: 376 msec QTC Interval: 425 msec P-R-T [place]: 60 - 69 - 39 degrees Sinus rhythm with premature atrial complexes Nonspecific T wave abnormality Abnormal ECG Electronically Signed By: Caden Pryor [id number]
[2017-06-10] MEDS: ATORVASTATIN 10 MG TAB PO SCH (21:00)
[2017-06-11] VITALS (16 sets, daily range): BP systolic 96–159; BP diastolic 60–90; PULSE 60–89; RESP 19–29
[2017-06-11] MEDS: ACCU-CHEK XX SCH (02:00)
[2017-06-11] MEDS: ALBUTEROL/IPRATROPIUM (NEB) 3 ML AMP NEB PRN (03:18)
[2017-06-11 05:30] LABS: BASOPHIL # 0.1 10^3/ul (0.0-0.1); BASOPHILS % 0.7 % (0.0-2.0); EOSINOPHILS # 0.2 10^3/ul (0.0-0.5); HEMATOCRIT 29.7 % (42.0-52.0); HEMOGLOBIN 9.7 g/dl (14.0-18.0); LYMPHOCYTES # 1.1 10^3/ul (0.8-2.9); MEAN CORPUSCULAR HEMOGLOBIN 26.8 pg (29.0-33.0); MEAN CORPUSCULAR HGB CONC 32.7 g/dl (32.0-37.0); MEAN PLATELET VOLUME 11.7 fl (7.4-10.4); MONOCYTE # 0.8 10^3/ul (0.3-0.9); MONOCYTES % 8.9 % (0.0-11.0); NEUTROPHILS % 76.1 % (39.0-77.0); PLATELET COUNT 201 10^3/UL (140-415); RED BLOOD COUNT 3.62 10^6/ul (4.70-6.10); RED CELL DISTRIBUTION WIDTH 14.2 % (11.5-14.5); WHITE BLOOD COUNT 9.2 10^3/ul (4.8-10.8)
[2017-06-11 05:57] LABS: MAGNESIUM 1.9 mg/dl (1.7-2.5); PHOSPHORUS 2.8 mg/dl (2.5-4.9)
[2017-06-11] MEDS: FUROSEMIDE 40 MG INJ IV SCH ×2 (06:00→17:18)
[2017-06-11] MEDS: HEPARIN 5,000 UNIT/0.5 ML VIAL SC SCH ×3 (06:00→21:48)
[2017-06-11 06:02] LABS: CALCIUM 8.3 mg/dl (8.4-10.2); CREATININE 0.82 mg/dl (0.61-1.24); POTASSIUM 4.3 mmol/L (3.5-5.1)
[2017-06-11] MEDS: MEROPENEM 1 GM/50ML(PMX) 50 ML IVPB SCH ×3 (06:39→22:32)
[2017-06-11] MEDS: PANTOPRAZOLE (EC) 40 MG TAB PO SCH (06:39)
[2017-06-11] MEDS: VANCOMYCIN 1.5 GM in SOD CHLORIDE 0.9% 250 ML IVPB SCH ×2 (06:42→18:40)
[2017-06-11] MEDS: metFORMIN 500 MG TAB PO SCH ×3 (07:35→17:55)
[2017-06-11] MEDS: INSULIN ASPART [NOVOLOG] 3 ML PEN SC SCH ×5 (07:35→21:44)
[2017-06-11] MEDS: VERAPAMIL (SR) 180 MG TAB PO SCH (08:40)
[2017-06-11] MEDS: LISINOPRIL 20 MG TAB PO SCH ×2 (08:40→21:39)
[2017-06-11] MEDS: ASPIRIN 81 MG TAB PO SCH (08:40)
[2017-06-11] MEDS: VITAMIN E 400 UNITS CAP PO SCH (08:41)
[2017-06-11] MEDS: LACTOBACILLUS RHAMNOSUS CAP PO SCH ×2 (08:41→21:00)
[2017-06-11] MEDS: POVIDONE IODINE 10% 28.4 GM OINT TOP SCH (08:41)
[2017-06-11] MEDS: MULTIVITAMINS THERAPEUTIC TAB PO SCH (09:13)
[2017-06-11] MEDS: HYDROCODONE/APAP (5/325) TAB PO PRN (09:14)
--- NOTE | 2017-06-11 12:44 | CONS ---
Date/Time of Note Date/Time of Note DATE: 06/11/17 TIME: 12:39 Consult Date/Type/Reason Admit Date/Time Jun 08, 2017 at 05:27 Initial Consult Date Type of Consultation: CARDIOLOGY Subjective CARDIOLOGY F/U/ Critical care note D/W staff and rhythm was reviewed. pt remains in NSR. his breathing is better and states that as long as he is not coughing his breathing is ok. he still has orthopnea pt is still in ICU. OBJECTIVE; General: no acute distress HEENT: NC/AT. pupils are equal. round. NECK: NO JVD. no stridor. CV: RRR. systolic murmur; no gallop or rubs. PULM: no wheezing . mild basilar rhonchi. GI: SOFT, NT, ND, no rebound or guarding Extremity: + B/L LE edema. no clubbing. neuro: awake and alert, OX3. Psych: calm and pleasant rectal: deferred : normal Objective Vital Signs Date Time Temp Pulse Resp B/P Pulse Ox O2 Delivery O2 Flow Rate FiO2 06/11/17 12:00 98.5 79 20 148/89 98 Nasal Cannula 5.0 06/11/17 05:18 40 Intake and Output 06/10/17 06/10/17 06/11/17 15:00 23:00 07:00 Intake Total 800 ml 50 ml 903 ml Output Total 2000 ml 1280 ml Balance -1200 ml 50 ml -377 ml Results/Medications Result Diagram: 06/11/17 0500 06/11/17 0438 Results 24 hrs Laboratory Tests Test 06/10/17 12:45 06/10/17 16:51 06/10/17 20:52 06/11/17 04:38 Bedside Glucose 169 193 244 H Sodium Level 138 Potassium Level 4.3 Chloride Level 98 Carbon Dioxide Level 29 Anion Gap 15 Blood Urea Nitrogen 24 H Creatinine 0.82 Glucose Level 121 Calcium Level 8.3 L Phosphorus Level 2.8 Magnesium Level 1.9 Test 06/11/17 05:00 06/11/17 12:09 White Blood Count 9.2 Red Blood Count 3.62 L Hemoglobin 9.7 L Hematocrit 29.7 L Mean Corpuscular Volume 82.0 Mean Corpuscular Hemoglobin 26.8 L Mean Corpuscular Hemoglobin Concent 32.7 Red Cell Distribution Width 14.2 Platelet Count 201 Mean Platelet Volume 11.7 H Neutrophils % 76.1 Lymphocytes % 12.0 L Monocytes % 8.9 Eosinophils % 2.0 Basophils % 0.7 Nucleated Red Blood Cells % 0.0 Neutrophils # (Manual) 7.0 Lymphocytes # 1.1 Monocytes # 0.8 Eosinophils # 0.2 Basophils # 0.1 Nucleated Red Blood Cells # 0.0 Bedside Glucose 198 Medications Current Medications Aspirin (Aspirin) 81 mg DAILY PO Last administered on 06/11/17 08:40; Admin Dose 81 MG; Start 06/08/17 at 09:00 Carvedilol (Coreg) 6.25 mg Q12 PO Last administered on 06/11/17 08:40; Admin Dose 6.25 MG; Start 06/08/17 at 09:00 Lactobacillus Acidophilus/ Rhamnosus (Culturelle) 1 cap BID PO Last administered on 06/11/17 08:41; Admin Dose 1 CAP; Start 06/08/17 at 09:00 Lisinopril (Zestril) 40 mg BID PO Last administered on 06/11/17 08:40; Admin Dose 40 MG; Start 06/08/17 at 09:00 Multivitamins Therapeutic (Theragran) 1 tab DAILY PO Last administered on 09:13; Admin Dose 1 TAB; Start 06/08/17 at 09:00 Verapamil HCl (Isoptin Sr) 360 mg DAILY PO Last administered on 06/11/17 08:40 ; Admin Dose 360 MG; Start 06/08/17 at 09:00 Vitamin E (Vitamin E) 400 units DAILY PO Last administered on 06/11/17 08:41; Admin Dose 400 UNITS; Start 06/08/17 at 09:00 Atorvastatin Calcium (Lipitor) 10 mg DAILY@21 PO Last administered on 21:00; Admin Dose 10 MG; Start 06/08/17 at 21:00 Ondansetron HCl (Zofran Inj) 4 mg Q6H PRN IV NAUSEA AND/OR VOMITING; Start at 04:00 Nitroglycerin (Nitroglycerin (Sl Tab) 0.4 Mg) 1 tab Q5M PRN SL CHEST PAIN; Start 06/08/17 at 04:00 Acetaminophen (Tylenol Tab) 650 mg Q6H PRN PO PAIN LEVEL 1-3 OR FEVER Last administered on 06/09/17 08:49; Admin Dose 650 MG; Start 06/08/17 at 04:00 Acetaminophen/ Hydrocodone Bitart ([place] (5/325)) 1 tab Q6H PRN PO PAIN LEVEL 4 -6 Last administered on 06/10/17 19:00; Admin Dose 1 TAB; Start 06/08/17 at 04: 00 Acetaminophen/ Hydrocodone Bitart ([place] (5/325)) 2 tab Q6H PRN PO PAIN LEVEL 7 -10 Last administered on 06/11/17 09:14; Admin Dose 2 TAB; Start 06/08/17 at 04 :00 Morphine Sulfate (morphine) 2 mg Q4H PRN IV PAIN LEVEL 7-10 Last administered on 06/08/17 19:58; Admin Dose 2 MG; Start 06/08/17 at 04:00 Docusate Sodium (Colace) 100 mg Q12H PRN PO CONSTIPATION; Start 06/08/17 at 04: 00 Magnesium Hydroxide (Milk Of Mag) 30 ml DAILY PRN PO CONSTIPATION; Start at 04:00 Bisacodyl (Dulcolax Supp) 10 mg DAILY PRN [place] CONSTIPATION; Start 06/08/17 at 04 :00 Heparin Sodium (Porcine) 5000 unit 5,000 unit Q8 SC Last administered on 15:15; Admin Dose 5,000 UNIT; Start 06/08/17 at 06:00 Meropenem/Sodium Chloride (Merrem 1 Gm/50 ml (Pmx)) 50 ml @ 100 mls/hr Q8 IVPB Last administered on 06/11/17 06:39; Admin Dose 100 MLS/HR; Start 06/08/17 at 06:00 Hydralazine HCl (Apresoline) 10 mg Q4H PRN IV ELEVATED SYSTOLIC BP Last administered on 06/08/17 19:24; Admin Dose 10 MG; Start 06/08/17 at 04:30 Diagnostic Test (Pha) 1 ea 1 ea 02 XX Last administered on 06/11/17 02:00; Admin Dose 1 EA; Start 06/09/17 at 02:00 Vancomycin HCl/ Sodium Chloride (Vancocin/NS) 250 ml @ 83.333 mls/ hr Q12H IVPB Last administered on 06/11/17 06:42; Admin Dose 83.333 MLS/HR; Start at 19:00 Povidone Iodine (Povidone-Iodine) 1 applic DAILY TOP Last administered on 08:41; Admin Dose 1 APPLIC; Start 06/08/17 at 09:00 Pantoprazole (Protonix Tab) 40 mg DAILY@06 PO Last administered on 06/11/17 06 :39; Admin Dose 40 MG; Start 06/09/17 at 06:00 Lorazepam (Ativan) 2 mg Q6H PRN IV AGITATION/ANXIETY Last administered on 19:35; Admin Dose 2 MG; Start 06/08/17 at 19:30 Assessment/Plan Chief Complaint/Hosp Course 1. acute resp failure: currently improving 2. CHF acute 3. bacteremia, ? endocarditis. 4.hx HTN 5. DM 6. DM foot ulcer and probably osteo 7. anemia cont IV diuretics for now O2 abx as per IM. Iinsulin and DM control as per IM CONT COREG AND LISINOPRIL will add aldctone pt remains in ICU for close monitoring more than 35 minutes of critical care time was spent in management and treatment of this critically ill pt, excluding any procedure. MARIAN ENCARNACION MD FACCC Problems: MARIAN ENCARNACION MD Jun 11, 2017 12:44
[2017-06-11] MEDS: SPIRONOLACTONE 25 MG TAB PO SCH (13:59)
--- NOTE | 2017-06-11 14:39 | PN ---
Date/Time of Note Date/Time of Note DATE: 06/11/17 TIME: 14:20 Assessment/Plan VTE Prophylaxis VTE Prophylaxis Intervention: LMWH Lines/Catheters IV Catheter Type (from [facility] Saline Lock Urinary Cath still in place: No Assessment/Plan Assessment/Plan [facility] 1. 56-year-old man admitted four days ago for acute respiratory failure requiring BiPAP. He distressed again last night, requiring BiPAP overnight. Chest exam today sounds very healthy, breathing comfortably on oxygen per nasal cannula. Blood cultures showing Coagulase-negative Staph x 2 (sensitive to vancomycin). CT chest shows pulmonary edema with fluid overload, possibly secondary to a right middle lobe pneumonia. Discussed with Dr. Jenaro Sweet ( cardiology). Echo shows mild left ventricular hypertrophy, but with preserved LV function. No significant valvular disease. * Repeat echo pending; possibly with [facility] next week. * Strict I's and O's * Continue supplemental oxygen * Continue Vancomycin * Repeat blood cultures * PICC line to be removed. 2. Hypertension, better-controlled now * Continue carvedilol * Continue diuresis with Lasix 3. Pneumonia, possibly healthcare associated versus community-acquired. He was treated with vancomycin prior to admission. Lactic acidosis resolved. * Continue Meropenem & vancomycin * PICC line to be removed * Repeat blood cultures x2 pending. 4. Right diabetic foot infection. MRI consistent with osteomyelitis of the second toe, myositis and also tenosynovitis, consistent with his exam. On his last admission the recommendation was for patient to remain on long-term IV antibiotics as patient not keen on surgical amputation. * He will complete a 6-week course of antibiotics per infectious disease and podiatry. 5. Diabetes mellitus: A1c at 6.1% * Continue metformin for now. * On a diabetic diet. 6. Hyperlipidemia * Continue lovastatin 7. Hypochromic, normocytic anemia -- stable 8. Prophylaxis: Lovenox for DVT prophylaxis, Pepcid for GI prophylaxis. 9. Disposition: Transfer now to telemetry. Ultimately back home. Zuleima Roman MD PhD [phone] Subjective 24 Hr Interval Summary Free Text/Dictation Feeling quite well this morning. Occasional dry cough, which he says can tip him over into coughing spells and dyspnea. Mildly diaphoretic this morning, which he attributed to the room being too warm. Exam/Review of Systems Vital Signs Vitals Vital Signs Date Time Temp Pulse Resp B/P Pulse Ox O2 Delivery O2 Flow Rate FiO2 06/11/17 12:00 98.5 79 20 148/89 98 Nasal Cannula 5.0 06/11/17 05:18 40 Intake and Output 06/10/17 06/10/17 06/11/17 15:00 23:00 07:00 Intake Total 800 ml 50 ml 903 ml Output Total 2000 ml 1280 ml Balance -1200 ml 50 ml -377 ml Exam Constitutional: Alert, friendly, comfortable-appearing. Respiratory: Clear to auscultation, no wheezing or rales. Cardiovascular: symmetric pulses, regular rhythm, normal rate, 1+ pitting edema of the right foot, more than the left. Gastrointestinal: non-tender, soft, bowel sounds normal, no HSM. Musculoskeletal: No clubbing or cyanosis. He had ulceration of multiple toes at the tips, with moderately swollen 2nd toe on the right foot. No arthritis. Neurological: Oriented, intact sensorium, appropriate affect. Cranial nerves intact, with normal speech, strength, and light touch sensation. Toes downgoing. Results Result Diagram: 06/11/17 0500 06/11/17 0438 Results 24 hrs Laboratory Tests Test 06/10/17 16:51 06/10/17 20:52 06/11/17 01:42 06/11/17 04:38 Bedside Glucose 193 244 H 148 Sodium Level 138 Potassium Level 4.3 Chloride Level 98 Carbon Dioxide Level 29 Anion Gap 15 Blood Urea Nitrogen 24 H Creatinine 0.82 Glucose Level 121 Calcium Level 8.3 L Phosphorus Level 2.8 Magnesium Level 1.9 Test 06/11/17 05:00 06/11/17 08:17 06/11/17 12:09 White Blood Count 9.2 Red Blood Count 3.62 L Hemoglobin 9.7 L Hematocrit 29.7 L Mean Corpuscular Volume 82.0 Mean Corpuscular Hemoglobin 26.8 L Mean Corpuscular Hemoglobin Concent 32.7 Red Cell Distribution Width 14.2 Platelet Count 201 Mean Platelet Volume 11.7 H Neutrophils % 76.1 Lymphocytes % 12.0 L Monocytes % 8.9 Eosinophils % 2.0 Basophils % 0.7 Nucleated Red Blood Cells % 0.0 Neutrophils # (Manual) 7.0 Lymphocytes # 1.1 Monocytes # 0.8 Eosinophils # 0.2 Basophils # 0.1 Nucleated Red Blood Cells # 0.0 Bedside Glucose 135 198 Medications Medications Current Medications Aspirin (Aspirin) 81 mg DAILY PO Last administered on 06/11/17 08:40; Admin Dose 81 MG; Start 06/08/17 at 09:00 Carvedilol (Coreg) 6.25 mg Q12 PO Last administered on 06/11/17 08:40; Admin Dose 6.25 MG; Start 06/08/17 at 09:00 Lactobacillus Acidophilus/ Rhamnosus (Culturelle) 1 cap BID PO Last administered on 06/11/17 08:41; Admin Dose 1 CAP; Start 06/08/17 at 09:00 Lisinopril (Zestril) 40 mg BID PO Last administered on 06/11/17 08:40; Admin Dose 40 MG; Start 06/08/17 at 09:00 Multivitamins Therapeutic (Theragran) 1 tab DAILY PO Last administered on 09:13; Admin Dose 1 TAB; Start 06/08/17 at 09:00 Verapamil HCl (Isoptin Sr) 360 mg DAILY PO Last administered on 06/11/17 08:40 ; Admin Dose 360 MG; Start 06/08/17 at 09:00 Vitamin E (Vitamin E) 400 units DAILY PO Last administered on 06/11/17 08:41; Admin Dose 400 UNITS; Start 06/08/17 at 09:00 Atorvastatin Calcium (Lipitor) 10 mg DAILY@21 PO Last administered on 21:00; Admin Dose 10 MG; Start 06/08/17 at 21:00 Ondansetron HCl (Zofran Inj) 4 mg Q6H PRN IV NAUSEA AND/OR VOMITING; Start at 04:00 Nitroglycerin (Nitroglycerin (Sl Tab) 0.4 Mg) 1 tab Q5M PRN SL CHEST PAIN; Start 06/08/17 at 04:00 Acetaminophen (Tylenol Tab) 650 mg Q6H PRN PO PAIN LEVEL 1-3 OR FEVER Last administered on 06/09/17 08:49; Admin Dose 650 MG; Start 06/08/17 at 04:00 Acetaminophen/ Hydrocodone Bitart ([place] (5/325)) 1 tab Q6H PRN PO PAIN LEVEL 4 -6 Last administered on 06/10/17 19:00; Admin Dose 1 TAB; Start 06/08/17 at 04: 00 Acetaminophen/ Hydrocodone Bitart ([place] (5/325)) 2 tab Q6H PRN PO PAIN LEVEL 7 -10 Last administered on 06/11/17 09:14; Admin Dose 2 TAB; Start 06/08/17 at 04 :00 Morphine Sulfate (morphine) 2 mg Q4H PRN IV PAIN LEVEL 7-10 Last administered on 06/08/17 19:58; Admin Dose 2 MG; Start 06/08/17 at 04:00 Docusate Sodium (Colace) 100 mg Q12H PRN PO CONSTIPATION; Start 06/08/17 at 04: 00 Magnesium Hydroxide (Milk Of Mag) 30 ml DAILY PRN PO CONSTIPATION; Start at 04:00 Bisacodyl (Dulcolax Supp) 10 mg DAILY PRN [place] CONSTIPATION; Start 06/08/17 at 04 :00 Heparin Sodium (Porcine) 5000 unit 5,000 unit Q8 SC Last administered on 13:57; Admin Dose 5,000 UNIT; Start 06/08/17 at 06:00 Meropenem/Sodium Chloride (Merrem 1 Gm/50 ml (Pmx)) 50 ml @ 100 mls/hr Q8 IVPB Last administered on 06/11/17 13:54; Admin Dose 100 MLS/HR; Start 06/08/17 at 06:00 Hydralazine HCl (Apresoline) 10 mg Q4H PRN IV ELEVATED SYSTOLIC BP Last administered on 06/08/17 19:24; Admin Dose 10 MG; Start 06/08/17 at 04:30 Diagnostic Test (Pha) 1 ea 1 ea 02 XX Last administered on 06/11/17 02:00; Admin Dose 1 EA; Start 06/09/17 at 02:00 Vancomycin HCl/ Sodium Chloride (Vancocin/NS) 250 ml @ 83.333 mls/ hr Q12H IVPB Last administered on 06/11/17 06:42; Admin Dose 83.333 MLS/HR; Start at 19:00 Povidone Iodine (Povidone-Iodine) 1 applic DAILY TOP Last administered on 08:41; Admin Dose 1 APPLIC; Start 06/08/17 at 09:00 Pantoprazole (Protonix Tab) 40 mg DAILY@06 PO Last administered on 06/11/17 06 :39; Admin Dose 40 MG; Start 06/09/17 at 06:00 Lorazepam (Ativan) 2 mg Q6H PRN IV AGITATION/ANXIETY Last administered on 19:35; Admin Dose 2 MG; Start 06/08/17 at 19:30 Spironolactone (Aldactone) 25 mg DAILY PO Last administered on 06/11/17 13:59 ; Admin Dose 25 MG; Start 06/11/17 at 13:00 Miscellaneous Information (*Rx Drug Level Order Reminder*) 1 ONCE ONCE XX ; Start 06/12/17 at 06:00; Stop 06/12/17 at 06:01 RUTH ROMAN M.D. Jun 11, 2017 14:35
[2017-06-11] MEDS: ATORVASTATIN 10 MG TAB PO SCH (21:39)
[2017-06-12] VITALS (16 sets, daily range): BP systolic 105–191; BP diastolic 57–96; PULSE 63–88; RESP 18–22
[2017-06-12] MEDS: ACCU-CHEK XX SCH (01:34)
[2017-06-12] MEDS: FUROSEMIDE 40 MG INJ IV SCH ×2 (05:34→17:36)
[2017-06-12] MEDS: PANTOPRAZOLE (EC) 40 MG TAB PO SCH (05:34)
[2017-06-12] MEDS: MEROPENEM 1 GM/50ML(PMX) 50 ML IVPB SCH ×3 (05:34→22:06)
[2017-06-12] MEDS: HEPARIN 5,000 UNIT/0.5 ML VIAL SC SCH ×3 (05:43→22:03)
[2017-06-12] MEDS: VANCOMYCIN 1.5 GM in SOD CHLORIDE 0.9% 250 ML IVPB SCH ×2 (06:33→18:12)
[2017-06-12] MEDS: INSULIN ASPART [NOVOLOG] 3 ML PEN SC SCH ×4 (07:55→21:00)
[2017-06-12] MEDS: metFORMIN 500 MG TAB PO SCH ×2 (08:18→17:34)
[2017-06-12] MEDS: SPIRONOLACTONE 25 MG TAB PO SCH (08:23)
[2017-06-12] MEDS: ASPIRIN 81 MG TAB PO SCH (08:23)
[2017-06-12 08:24] LABS: ALBUMIN 2.5 g/dl (3.3-4.9); ALBUMIN/GLOBULIN RATIO 0.86; BILIRUBIN,INDIRECT 0.5 mg/dl (0-1.1); BILIRUBIN,TOTAL 0.5 mg/dl (0.2-1.3); CALCIUM 8.3 mg/dl (8.4-10.2); CREATININE 0.69 mg/dl (0.61-1.24); MAGNESIUM 1.8 mg/dl (1.7-2.5); POTASSIUM 3.8 mmol/L (3.5-5.1); TOTAL PROTEIN 5.4 g/dl (6.1-8.1)
[2017-06-12] MEDS: LACTOBACILLUS RHAMNOSUS CAP PO SCH ×2 (08:26→22:01)
[2017-06-12] MEDS: MULTIVITAMINS THERAPEUTIC TAB PO SCH (08:27)
[2017-06-12] MEDS: VERAPAMIL (SR) 180 MG TAB PO SCH (08:36)
[2017-06-12] MEDS: LISINOPRIL 20 MG TAB PO SCH ×2 (08:36→22:02)
[2017-06-12] MEDS: VITAMIN E 400 UNITS CAP PO SCH (08:40)
[2017-06-12] MEDS: HYDROCODONE/APAP (5/325) TAB PO PRN (12:15)
[2017-06-12] MEDS: POVIDONE IODINE 10% 28.4 GM OINT TOP SCH (12:25)
--- NOTE | 2017-06-12 14:22 | CONS ---
Date/Time of Note Date/Time of Note DATE: 06/12/17 TIME: 14:21 Consult Date/Type/Reason Admit Date/Time Jun 08, 2017 at 05:27 Type of Consultation: CARDIOLOGY Subjective CARDIOLOGY F/U D/W staff and rhythm was reviewed. pt remains in NSR. his breathing is better BUT he is still c/o cough he still has orthopnea OBJECTIVE; General: no acute distress HEENT: NC/AT. pupils are equal. round. NECK: NO JVD. no stridor. CV: RRR. systolic murmur; no gallop or rubs. PULM: no wheezing . mild basilar rhonchi. GI: SOFT, NT, ND, no rebound or guarding Extremity: + B/L LE edema. no clubbing. neuro: awake and alert, OX3. Psych: calm and pleasant rectal: deferred : normal Objective Vital Signs Date Time Temp Pulse Resp B/P Pulse Ox O2 Delivery O2 Flow Rate FiO2 06/12/17 13:53 3.0 06/12/17 12:00 63 06/12/17 11:13 97.5 19 105/57 96 06/12/17 05:46 40 06/11/17 20:00 Nasal Cannula Intake and Output 06/11/17 06/11/17 06/12/17 15:00 23:00 07:00 Intake Total 890 ml 120 ml 500 ml Output Total 1250 ml 80 ml 1000 ml Balance -360 ml 40 ml -500 ml Results/Medications Result Diagram: 06/11/17 0500 06/12/17 0554 Results 24 hrs Laboratory Tests Test 06/11/17 17:17 06/11/17 21:27 06/12/17 01:12 06/12/17 05:54 Bedside Glucose 200 190 136 Sodium Level 135 Potassium Level 3.8 Chloride Level 96 L Carbon Dioxide Level 31 Anion Gap 12 Blood Urea Nitrogen 21 H Creatinine 0.69 Glucose Level 106 Calcium Level 8.3 L Magnesium Level 1.8 Total Bilirubin 0.5 Direct Bilirubin 0.00 Indirect Bilirubin 0.5 Aspartate Amino Transf (AST/SGOT) 53 H Alanine Aminotransferase (ALT/SGPT) 110 H Alkaline Phosphatase 67 B-Type Natriuretic Peptide 1480 H Total Protein 5.4 L Albumin 2.5 L Globulin 2.90 Albumin/Globulin Ratio 0.86 Vancomycin Level Trough 13.1 Test 06/12/17 08:04 06/12/17 11:56 Bedside Glucose 128 178 Medications Current Medications Aspirin (Aspirin) 81 mg DAILY PO Last administered on 06/12/17 08:23; Admin Dose 81 MG; Start 06/08/17 at 09:00 Carvedilol (Coreg) 6.25 mg Q12 PO Last administered on 06/12/17 08:24; Admin Dose 6.25 MG; Start 06/08/17 at 09:00 Lactobacillus Acidophilus/ Rhamnosus (Culturelle) 1 cap BID PO Last administered on 06/12/17 08:26; Admin Dose 1 CAP; Start 06/08/17 at 09:00 Lisinopril (Zestril) 40 mg BID PO Last administered on 06/12/17 08:36; Admin Dose 40 MG; Start 06/08/17 at 09:00 Multivitamins Therapeutic (Theragran) 1 tab DAILY PO Last administered on 08:27; Admin Dose 1 TAB; Start 06/08/17 at 09:00 Verapamil HCl (Isoptin Sr) 360 mg DAILY PO Last administered on 06/12/17 08:36 ; Admin Dose 360 MG; Start 06/08/17 at 09:00 Vitamin E (Vitamin E) 400 units DAILY PO Last administered on 06/12/17 08:40; Admin Dose 400 UNITS; Start 06/08/17 at 09:00 Atorvastatin Calcium (Lipitor) 10 mg DAILY@21 PO Last administered on 21:39; Admin Dose 10 MG; Start 06/08/17 at 21:00 Ondansetron HCl (Zofran Inj) 4 mg Q6H PRN IV NAUSEA AND/OR VOMITING; Start at 04:00 Nitroglycerin (Nitroglycerin (Sl Tab) 0.4 Mg) 1 tab Q5M PRN SL CHEST PAIN; Start 06/08/17 at 04:00 Acetaminophen (Tylenol Tab) 650 mg Q6H PRN PO PAIN LEVEL 1-3 OR FEVER Last administered on 06/09/17 08:49; Admin Dose 650 MG; Start 06/08/17 at 04:00 Acetaminophen/ Hydrocodone Bitart ([place] (5/325)) 1 tab Q6H PRN PO PAIN LEVEL 4 -6 Last administered on 06/10/17 19:00; Admin Dose 1 TAB; Start 06/08/17 at 04: 00 Acetaminophen/ Hydrocodone Bitart ([place] (5/325)) 2 tab Q6H PRN PO PAIN LEVEL 7 -10 Last administered on 06/12/17 12:15; Admin Dose 2 TAB; Start 06/08/17 at 04 :00 Morphine Sulfate (morphine) 2 mg Q4H PRN IV PAIN LEVEL 7-10 Last administered on 06/08/17 19:58; Admin Dose 2 MG; Start 06/08/17 at 04:00 Docusate Sodium (Colace) 100 mg Q12H PRN PO CONSTIPATION; Start 06/08/17 at 04: 00 Magnesium Hydroxide (Milk Of Mag) 30 ml DAILY PRN PO CONSTIPATION; Start at 04:00 Bisacodyl (Dulcolax Supp) 10 mg DAILY PRN [place] CONSTIPATION; Start 06/08/17 at 04 :00 Heparin Sodium (Porcine) 5000 unit 5,000 unit Q8 SC Last administered on 14:00; Admin Dose 5,000 UNIT; Start 06/08/17 at 06:00 Meropenem/Sodium Chloride (Merrem 1 Gm/50 ml (Pmx)) 50 ml @ 100 mls/hr Q8 IVPB Last administered on 06/12/17 13:58; Admin Dose 100 MLS/HR; Start 06/08/17 at 06:00 Hydralazine HCl (Apresoline) 10 mg Q4H PRN IV ELEVATED SYSTOLIC BP Last administered on 06/08/17 19:24; Admin Dose 10 MG; Start 06/08/17 at 04:30 Diagnostic Test (Pha) 1 ea 1 ea 02 XX Last administered on 06/11/17 02:00; Admin Dose 1 EA; Start 06/09/17 at 02:00 Vancomycin HCl/ Sodium Chloride (Vancocin/NS) 250 ml @ 83.333 mls/ hr Q12H IVPB Last administered on 06/12/17 06:33; Admin Dose 83.333 MLS/HR; Start at 19:00 Povidone Iodine (Povidone-Iodine) 1 applic DAILY TOP Last administered on 12:25; Admin Dose 1 APPLIC; Start 8/23/17 at 09:00 Pantoprazole (Protonix Tab) 40 mg DAILY@06 PO Last administered on 06/12/17 05 :34; Admin Dose 40 MG; Start 06/09/17 at 06:00 Lorazepam (Ativan) 2 mg Q6H PRN IV AGITATION/ANXIETY Last administered on 19:35; Admin Dose 2 MG; Start 06/08/17 at 19:30 Spironolactone (Aldactone) 25 mg DAILY PO Last administered on 06/12/17 08:23 ; Admin Dose 25 MG; Start 06/11/17 at 13:00 Assessment/Plan Chief Complaint/Hosp Course 1. acute resp failure: currently improving 2. CHF acute 3. bacteremia, ? endocarditis. 4.hx HTN 5. DM 6. DM foot ulcer and probably osteo 7. anemia cont IV diuretics for now O2 abx as per IM. Iinsulin and DM control as per IM CONT COREG AND LISINOPRIL will cont aldctone MARIAN ENCARNACION MD FACCC Problems: MARIAN ENCARNACION MD Jun 12, 2017 14:22
--- NOTE | 2017-06-12 19:16 | CONS ---
Date/Time of Note Date/Time of Note DATE: 06/12/17 TIME: 19:10 Assessment/Plan Assessment/Plan Additional Assessment/Plan IMP: 1. Bilateral Perihilar Airspace Disease--along with clinical picture suggestive of flash pulm edema due to HTN emergency. However, if imaging findings are not resolved, would consider pulm-renal syndromes such as MPA or limited GPA. RECS: 1. PA and Lat CXR 2. If radiographic findings not markedly improved, would initiate extensive work -up including autoimmune disease such as SLE, GPA, MPA. Also would consider HIV testing. Consultation Date/Type/Reason Admit Date/Time Jun 08, 2017 at 05:27 Type of Consultation: Pulm Hx of Present Illness Briefly, this is a 56-year-old man with a history of HTN, DM, osteo, DM foot ulcers, admitted 4 days ago with hypoxemic resp insufficiency requiring BiPAP. Also presented with HTN urgency. Now much improved although still has a cough and dyspnea. +PND. and + orthopnea. Constitutional: no complaints Eyes: no complaints ENT: no complaints Respiratory: no complaints, pleuritic pain, shortness of breath Cardiovascular: no complaints Gastrointestinal: no complaints Genitourinary: no complaints Musculoskeletal: no complaints, other (Diabetic toe ulcers unchanged) Neurologic: no complaints Psychological: no complaints Past Medical History See hPI Past Surgical History Past Surgical Hx: no surgical history Social History Alcohol Use: none Smoking Status: Former smoker Drug Use: none Exam/Review of Systems Vital Signs Vitals Vital Signs Date Time Temp Pulse Resp B/P Pulse Ox O2 Delivery O2 Flow Rate FiO2 06/12/17 16:14 64 06/12/17 15:57 97.2 22 110/60 99 06/12/17 13:53 3.0 06/12/17 09:30 Nasal Cannula 06/12/17 05:46 40 Intake and Output 06/11/17 06/11/17 06/12/17 15:00 23:00 07:00 Intake Total 890 ml 120 ml 500 ml Output Total 1250 ml 80 ml 1000 ml Balance -360 ml 40 ml -500 ml Exam Constitutional: alert, oriented Head: normocephalic Eyes: EOMI, nl conjunctiva, nl lids ENMT: nl external ears & nose, nl lips & teeth, nl nasal mucosa & septum Neck: jvd, non-tender, supple Respiratory: crackles/rales, diminished breath sounds Cardiovascular: nl pulses, regular rate and rhythm Gastrointestinal: nl liver, spleen, non-tender, soft Extremities: normal pulses, other (ulcers ), pitting pedal edema Neurological: [employer] II-XII intact, nl mental status Results Result Diagram: 06/11/17 0500 06/12/17 0554 Results 24 hrs Laboratory Tests Test 06/11/17 21:27 06/12/17 01:12 06/12/17 05:54 06/12/17 08:04 Bedside Glucose 190 136 128 Sodium Level 135 Potassium Level 3.8 Chloride Level 96 L Carbon Dioxide Level 31 Anion Gap 12 Blood Urea Nitrogen 21 H Creatinine 0.69 Glucose Level 106 Calcium Level 8.3 L Magnesium Level 1.8 Total Bilirubin 0.5 Direct Bilirubin 0.00 Indirect Bilirubin 0.5 Aspartate Amino Transf (AST/SGOT) 53 H Alanine Aminotransferase (ALT/SGPT) 110 H Alkaline Phosphatase 67 B-Type Natriuretic Peptide 1480 H Total Protein 5.4 L Albumin 2.5 L Globulin 2.90 Albumin/Globulin Ratio 0.86 Vancomycin Level Trough 13.1 Test 06/12/17 11:56 06/12/17 17:24 Bedside Glucose 178 167 Medications Medications Current Medications Aspirin (Aspirin) 81 mg DAILY PO Last administered on 06/12/17 08:23; Admin Dose 81 MG; Start 06/08/17 at 09:00 Carvedilol (Coreg) 6.25 mg Q12 PO Last administered on 06/12/17 08:24; Admin Dose 6.25 MG; Start 06/08/17 at 09:00 Lactobacillus Acidophilus/ Rhamnosus (Culturelle) 1 cap BID PO Last administered on 06/12/17 08:26; Admin Dose 1 CAP; Start 06/08/17 at 09:00 Lisinopril (Zestril) 40 mg BID PO Last administered on 06/12/17 08:36; Admin Dose 40 MG; Start 06/08/17 at 09:00 Multivitamins Therapeutic (Theragran) 1 tab DAILY PO Last administered on 08:27; Admin Dose 1 TAB; Start 06/08/17 at 09:00 Verapamil HCl (Isoptin Sr) 360 mg DAILY PO Last administered on 06/12/17 08:36 ; Admin Dose 360 MG; Start 06/08/17 at 09:00 Vitamin E (Vitamin E) 400 units DAILY PO Last administered on 06/12/17 08:40; Admin Dose 400 UNITS; Start 06/08/17 at 09:00 Atorvastatin Calcium (Lipitor) 10 mg DAILY@21 PO Last administered on 21:39; Admin Dose 10 MG; Start 06/08/17 at 21:00 Ondansetron HCl (Zofran Inj) 4 mg Q6H PRN IV NAUSEA AND/OR VOMITING; Start at 04:00 Nitroglycerin (Nitroglycerin (Sl Tab) 0.4 Mg) 1 tab Q5M PRN SL CHEST PAIN; Start 06/08/17 at 04:00 Acetaminophen (Tylenol Tab) 650 mg Q6H PRN PO PAIN LEVEL 1-3 OR FEVER Last administered on 06/09/17 08:49; Admin Dose 650 MG; Start 06/08/17 at 04:00 Acetaminophen/ Hydrocodone Bitart ([place] (5/325)) 1 tab Q6H PRN PO PAIN LEVEL 4 -6 Last administered on 06/10/17 19:00; Admin Dose 1 TAB; Start 06/08/17 at 04: 00 Acetaminophen/ Hydrocodone Bitart ([place] (5/325)) 2 tab Q6H PRN PO PAIN LEVEL 7 -10 Last administered on 06/12/17 12:15; Admin Dose 2 TAB; Start 06/08/17 at 04 :00 Morphine Sulfate (morphine) 2 mg Q4H PRN IV PAIN LEVEL 7-10 Last administered on 06/08/17 19:58; Admin Dose 2 MG; Start 06/08/17 at 04:00 Docusate Sodium (Colace) 100 mg Q12H PRN PO CONSTIPATION; Start 06/08/17 at 04: 00 Magnesium Hydroxide (Milk Of Mag) 30 ml DAILY PRN PO CONSTIPATION; Start at 04:00 Bisacodyl (Dulcolax Supp) 10 mg DAILY PRN [place] CONSTIPATION; Start 06/08/17 at 04 :00 Heparin Sodium (Porcine) 5000 unit 5,000 unit Q8 SC Last administered on 14:00; Admin Dose 5,000 UNIT; Start 06/08/17 at 06:00 Meropenem/Sodium Chloride (Merrem 1 Gm/50 ml (Pmx)) 50 ml @ 100 mls/hr Q8 IVPB Last administered on 06/12/17 13:58; Admin Dose 100 MLS/HR; Start 06/08/17 at 06:00 Hydralazine HCl (Apresoline) 10 mg Q4H PRN IV ELEVATED SYSTOLIC BP Last administered on 06/08/17 19:24; Admin Dose 10 MG; Start 06/08/17 at 04:30 Diagnostic Test (Pha) 1 ea 1 ea 02 XX Last administered on 06/11/17 02:00; Admin Dose 1 EA; Start 06/09/17 at 02:00 Vancomycin HCl/ Sodium Chloride (Vancocin/NS) 250 ml @ 83.333 mls/ hr Q12H IVPB Last administered on 06/12/17 18:12; Admin Dose 83.333 MLS/HR; Start at 19:00 Povidone Iodine (Povidone-Iodine) 1 applic DAILY TOP Last administered on 12:25; Admin Dose 1 APPLIC; Start 06/08/17 at 09:00 Pantoprazole (Protonix Tab) 40 mg DAILY@06 PO Last administered on 06/12/17 05 :34; Admin Dose 40 MG; Start 06/09/17 at 06:00 Lorazepam (Ativan) 2 mg Q6H PRN IV AGITATION/ANXIETY Last administered on 19:35; Admin Dose 2 MG; Start 06/08/17 at 19:30 Spironolactone (Aldactone) 25 mg DAILY PO Last administered on 06/12/17 08:23 ; Admin Dose 25 MG; Start 06/11/17 at 13:00 LON ARAIZA MD Jun 12, 2017 19:16
[2017-06-12] MEDS: ATORVASTATIN 10 MG TAB PO SCH (22:01)
--- NOTE | 2017-06-12 23:40 | PN ---
Date/Time of Note Date/Time of Note DATE: 06/12/17 TIME: 23:40 Assessment/Plan VTE Prophylaxis VTE Prophylaxis Intervention: heparin Lines/Catheters IV [facility] (from [facility] Saline Lock Urinary Cath still in place: No Assessment/Plan Assessment/Plan [facility] 1. 56-year-old man admitted five days ago for acute respiratory failure requiring BiPAP. Complains of dry coughing spells that cause him to panic. Chest exam today showed clear lungs, breathing comfortably on oxygen per nasal cannula. Blood cultures were positive for Coagulase-negative Staph x 2 ( sensitive to vancomycin). CT chest three days ago showed pulmonary edema with fluid overload, possibly secondary to a right middle lobe pneumonia. Echo showed mild left ventricular hypertrophy, but with preserved LV function. No significant valvular disease. * Question of benefit from [facility] this week to evaluate for endocarditis. No sign of infection now, without fever or leukocytosis. Central line removed 06/10/17. * Strict I/O * Continue supplemental oxygen * Continue Vancomycin * Repeat blood cultures negative so far. 2. Hypertension, well-controlled now * Continue carvedilol * Continue diuresis with Lasix 3. Question of pneumonia, possibly healthcare-associated versus community- acquired. He was treated with vancomycin prior to admission. No focal infiltrate on CT chest, but bilateral pleural effusions. * Continue Meropenem & vancomycin (both day 5) 4. Right diabetic foot infection. MRI consistent with osteomyelitis of the second toe, myositis and also tenosynovitis, consistent with his exam. On his last admission the recommendation was for patient to remain on long-term (six weeks) IV antibiotics as patient not keen on surgical amputation. 5. Diabetes mellitus: A1c at 6.1% * Continue metformin for now. * Diabetic diet. 6. Hyperlipidemia * Continue lovastatin 7. Hypochromic, normocytic anemia -- stable 8. Prophylaxis: Heparin for DVT prophylaxis, Pepcid for GI prophylaxis. 9. Disposition: Ultimately back home. Zuleima Roman MD PhD [phone] Subjective 24 Hr Interval Summary Free Text/Dictation Feeling much better, with only mild chest discomfort in the mid-sternal area that is precipitated by coughing spells. No nausea, headache, or dizziness. No family or visitors at bedside tonight. Exam/Review of Systems Vital Signs Vitals Vital Signs Date Time Temp Pulse Resp B/P Pulse Ox O2 Delivery O2 Flow Rate FiO2 06/12/17 20:09 98.8 72 20 156/78 96 06/12/17 20:00 Nasal Cannula 2.0 06/12/17 05:46 40 Intake and Output 06/11/17 06/11/17 06/12/17 15:00 23:00 07:00 Intake Total 890 ml 120 ml 500 ml Output Total 1250 ml 80 ml 1000 ml Balance -360 ml 40 ml -500 ml Exam Constitutional: Alert, friendly, comfortable-appearing, sitting up in bed. Respiratory: Clear to auscultation, no wheezing or rales. Good air movement. Cardiovascular: symmetric pulses, regular rhythm, normal rate, 1+ pitting edema of the right foot, more than the left. Gastrointestinal: non-tender, soft, bowel sounds normal, no HSM. Musculoskeletal: No clubbing or cyanosis. He had ulceration of multiple toes at the tips, with moderately swollen 2nd toe on the right foot. No arthritis. Neurological: Oriented, intact sensorium, appropriate affect. Cranial nerves intact, with normal speech, strength, and light touch sensation. Toes downgoing. Results Result Diagram: 06/11/17 0500 06/12/17 0554 Results 24 hrs Laboratory Tests Test 06/12/17 01:12 06/12/17 05:54 06/12/17 08:04 06/12/17 11:56 Bedside Glucose 136 128 178 Sodium Level 135 Potassium Level 3.8 Chloride Level 96 L Carbon Dioxide Level 31 Anion Gap 12 Blood Urea Nitrogen 21 H Creatinine 0.69 Glucose Level 106 Calcium Level 8.3 L Magnesium Level 1.8 Total Bilirubin 0.5 Direct Bilirubin 0.00 Indirect Bilirubin 0.5 Aspartate Amino Transf (AST/SGOT) 53 H Alanine Aminotransferase (ALT/SGPT) 110 H Alkaline Phosphatase 67 B-Type Natriuretic Peptide 1480 H Total Protein 5.4 L Albumin 2.5 L Globulin 2.90 Albumin/Globulin Ratio 0.86 Vancomycin Level Trough 13.1 Test 06/12/17 17:24 06/12/17 22:00 Bedside Glucose 167 137 Medications Medications Current Medications Aspirin (Aspirin) 81 mg DAILY PO Last administered on 06/12/17t 08:23; Admin Dose 81 MG; Start 06/08/17 at 09:00 Carvedilol (Coreg) 6.25 mg Q12 PO Last administered on 06/12/17 22:02; Admin Dose 6.25 MG; Start 06/08/17 at 09:00 Lactobacillus Acidophilus/ Rhamnosus (Culturelle) 1 cap BID PO Last administered on 06/12/17 22:01; Admin Dose 1 CAP; Start 06/08/17 at 09:00 Lisinopril (Zestril) 40 mg BID PO Last administered on 06/12/17 22:02; Admin Dose 40 MG; Start 06/08/17 at 09:00 Multivitamins Therapeutic (Theragran) 1 tab DAILY PO Last administered on 08:27; Admin Dose 1 TAB; Start 06/08/17 at 09:00 Verapamil HCl (Isoptin Sr) 360 mg DAILY PO Last administered on 06/12/17 08:36 ; Admin Dose 360 MG; Start 06/08/17 at 09:00 Vitamin E (Vitamin E) 400 units DAILY PO Last administered on 06/12/17 08:40; Admin Dose 400 UNITS; Start 06/08/17 at 09:00 Atorvastatin Calcium (Lipitor) 10 mg DAILY@21 PO Last administered on 22:01; Admin Dose 10 MG; Start 06/08/17 at 21:00 Ondansetron HCl (Zofran Inj) 4 mg Q6H PRN IV NAUSEA AND/OR VOMITING; Start at 04:00 Nitroglycerin (Nitroglycerin (Sl Tab) 0.4 Mg) 1 tab Q5M PRN SL CHEST PAIN; Start 06/08/17 at 04:00 Acetaminophen (Tylenol Tab) 650 mg Q6H PRN PO PAIN LEVEL 1-3 OR FEVER Last administered on 06/09/17 08:49; Admin Dose 650 MG; Start 06/08/17 at 04:00 Acetaminophen/ Hydrocodone Bitart ([place] (5/325)) 1 tab Q6H PRN PO PAIN LEVEL 4 -6 Last administered on 06/10/17 19:00; Admin Dose 1 TAB; Start 06/08/17 at 04: 00 Acetaminophen/ Hydrocodone Bitart ([place] (5/325)) 2 tab Q6H PRN PO PAIN LEVEL 7 -10 Last administered on 06/12/17 12:15; Admin Dose 2 TAB; Start 06/08/17 at 04 :00 Morphine Sulfate (morphine) 2 mg Q4H PRN IV PAIN LEVEL 7-10 Last administered on 06/08/17 19:58; Admin Dose 2 MG; Start 06/08/17 at 04:00 Docusate Sodium (Colace) 100 mg Q12H PRN PO CONSTIPATION; Start 06/08/17 at 04: 00 Magnesium Hydroxide (Milk Of Mag) 30 ml DAILY PRN PO CONSTIPATION; Start at 04:00 Bisacodyl (Dulcolax Supp) 10 mg DAILY PRN [place] CONSTIPATION; Start 06/08/17 at 04 :00 Heparin Sodium (Porcine) 5000 unit 5,000 unit Q8 SC Last administered on 22:03; Admin Dose 5,000 UNIT; Start 06/08/17 at 06:00 Meropenem/Sodium Chloride (Merrem 1 Gm/50 ml (Pmx)) 50 ml @ 100 mls/hr Q8 IVPB Last administered on 06/12/17 22:06; Admin Dose 100 MLS/HR; Start 06/08/17 at 06:00 Hydralazine HCl (Apresoline) 10 mg Q4H PRN IV ELEVATED SYSTOLIC BP Last administered on 06/08/17 19:24; Admin Dose 10 MG; Start 06/08/17 at 04:30 Diagnostic Test (Pha) 1 ea 1 ea 02 XX Last administered on 06/11/17 02:00; Admin Dose 1 EA; Start 06/09/17 at 02:00 Vancomycin HCl/ Sodium Chloride (Vancocin/NS) 250 ml @ 83.333 mls/ hr Q12H IVPB Last administered on 06/12/17 18:12; Admin Dose 83.333 MLS/HR; Start at 19:00 Povidone Iodine (Povidone-Iodine) 1 applic DAILY TOP Last administered on 12:25; Admin Dose 1 APPLIC; Start 06/08/17 at 09:00 Pantoprazole (Protonix Tab) 40 mg DAILY@06 PO Last administered on 06/12/17 05 :34; Admin Dose 40 MG; Start 06/09/17 at 06:00 Lorazepam (Ativan) 2 mg Q6H PRN IV AGITATION/ANXIETY Last administered on 19:35; Admin Dose 2 MG; Start 06/08/17 at 19:30 Spironolactone (Aldactone) 25 mg DAILY PO Last administered on 06/12/17 08:23 ; Admin Dose 25 MG; Start 06/11/17 at 13:00 RUTH ROMAN M.D. Jun 12, 2017 23:40 RUTH ROMAN M.D. Jun 12, 2017 23:40
[2017-06-13] VITALS (11 sets, daily range): BP systolic 120–182; BP diastolic 68–87; PULSE 61–100; RESP 16–19
[2017-06-13] MEDS: ACCU-CHEK XX SCH (02:00)
[2017-06-13] MEDS: MEROPENEM 1 GM/50ML(PMX) 50 ML IVPB SCH ×4 (06:00→21:11)
[2017-06-13] MEDS: HEPARIN 5,000 UNIT/0.5 ML VIAL SC SCH ×3 (06:00→21:23)
[2017-06-13] MEDS: PANTOPRAZOLE (EC) 40 MG TAB PO SCH (06:00)
[2017-06-13] MEDS: FUROSEMIDE 40 MG INJ IV SCH ×2 (06:00→17:40)
[2017-06-13] MEDS: INSULIN ASPART [NOVOLOG] 3 ML PEN SC SCH ×4 (08:07→21:00)
[2017-06-13] MEDS: VANCOMYCIN 1.5 GM in SOD CHLORIDE 0.9% 250 ML IVPB SCH ×2 (08:36→18:29)
[2017-06-13] MEDS: ASPIRIN 81 MG TAB PO SCH (08:37)
[2017-06-13] MEDS: LACTOBACILLUS RHAMNOSUS CAP PO SCH ×2 (08:37→21:10)
[2017-06-13] MEDS: LISINOPRIL 20 MG TAB PO SCH ×2 (08:37→21:10)
[2017-06-13] MEDS: SPIRONOLACTONE 25 MG TAB PO SCH (08:37)
[2017-06-13] MEDS: VITAMIN E 400 UNITS CAP PO SCH (08:38)
[2017-06-13] MEDS: MULTIVITAMINS THERAPEUTIC TAB PO SCH (08:38)
[2017-06-13] MEDS: VERAPAMIL (SR) 180 MG TAB PO SCH (08:38)
[2017-06-13] MEDS: metFORMIN 500 MG TAB PO SCH ×2 (08:38→17:40)
[2017-06-13] MEDS: POVIDONE IODINE 10% 28.4 GM OINT TOP SCH (08:39)
--- NOTE | 2017-06-13 15:17 | CONS ---
Date/Time of Note Date/Time of Note DATE: 06/13/17 TIME: 15:14 Assessment/Plan Assessment/Plan Additional Assessment/Plan Acute decompensated diastolic congestive heart failure Preserved ejection fraction Diabetic foot ulcer Diabetes Hypertension -Patient with improvement in symptoms with diuretic therapy, awaiting chest x- ray from today. Continue beta-rodolfo and SAVAGE inhibitor if no contraindication. Given risk factors, would consider ischemic workup to rule out possible etiology of decompensated congestive heart failure. Consultation Date/Type/Reason Admit Date/Time Jun 08, 2017 at 05:27 Initial Consult Date Type of Consultation: cv 24 HR Interval Summary Free Text/Dictation Complaining of cough, denies current shortness of breath or chest pain. Exam/Review of Systems Vital Signs Vitals Vital Signs Date Time Temp Pulse Resp B/P Pulse Ox O2 Delivery O2 Flow Rate FiO2 06/13/17 12:00 75 06/13/17 11:22 97.9 19 141/75 92 06/13/17 08:30 Nasal Cannula 2.0 06/12/17 05:46 40 Intake and Output 06/12/17 06/12/17 06/13/17 15:00 23:00 07:00 Intake Total 300 ml 1800 ml Output Total 2000 ml Balance 300 ml -200 ml Exam No apparent distress Constitutional: alert, oriented Head: normocephalic Respiratory: other (Coarse breath sounds bilaterally, no wheezing) Cardiovascular: other (S1-S2 heard), regular rate and rhythm Gastrointestinal: bowel sounds, non-tender, soft Extremities: edema (Trace) Results Result Diagram: 06/11/17 0500 06/12/17 0554 Results 24 hrs Laboratory Tests Test 06/12/17 17:24 06/12/17 22:00 06/13/17 07:45 06/13/17 11:56 Bedside Glucose 167 137 164 170 Medications Medications Current Medications Aspirin (Aspirin) 81 mg DAILY PO Last administered on 06/13/17 08:37; Admin Dose 81 MG; Start 06/08/17 at 09:00 Carvedilol (Coreg) 6.25 mg Q12 PO Last administered on 06/13/17 08:37; Admin Dose 6.25 MG; Start 06/08/17 at 09:00 Lactobacillus Acidophilus/ Rhamnosus (Culturelle) 1 cap BID PO Last administered on 06/13/17 08:37; Admin Dose 1 CAP; Start 06/08/17 at 09:00 Lisinopril (Zestril) 40 mg BID PO Last administered on 06/13/17 08:37; Admin Dose 40 MG; Start 06/08/17 at 09:00 Multivitamins Therapeutic (Theragran) 1 tab DAILY PO Last administered on 08:38; Admin Dose 1 TAB; Start 06/08/17 at 09:00 Verapamil HCl (Isoptin Sr) 360 mg DAILY PO Last administered on 06/13/17 08:38 ; Admin Dose 360 MG; Start 06/08/17 at 09:00 Vitamin E (Vitamin E) 400 units DAILY PO Last administered on 06/13/17 08:38; Admin Dose 400 UNITS; Start 06/08/17 at 09:00 Atorvastatin Calcium (Lipitor) 10 mg DAILY@21 PO Last administered on 22:01; Admin Dose 10 MG; Start 06/08/17 at 21:00 Ondansetron HCl (Zofran Inj) 4 mg Q6H PRN IV NAUSEA AND/OR VOMITING; Start at 04:00 Nitroglycerin (Nitroglycerin (Sl Tab) 0.4 Mg) 1 tab Q5M PRN SL CHEST PAIN; Start 06/08/17 at 04:00 Acetaminophen (Tylenol Tab) 650 mg Q6H PRN PO PAIN LEVEL 1-3 OR FEVER Last administered on 06/09/17 08:49; Admin Dose 650 MG; Start 06/08/17 at 04:00 Acetaminophen/ Hydrocodone Bitart ([place] (5/325)) 1 tab Q6H PRN PO PAIN LEVEL 4 -6 Last administered on 06/10/17 19:00; Admin Dose 1 TAB; Start 06/08/17 at 04: 00 Acetaminophen/ Hydrocodone Bitart ([place] (5/325)) 2 tab Q6H PRN PO PAIN LEVEL 7 -10 Last administered on 06/12/17 12:15; Admin Dose 2 TAB; Start 06/08/17 at 04 :00 Morphine Sulfate (morphine) 2 mg Q4H PRN IV PAIN LEVEL 7-10 Last administered on 06/08/17 19:58; Admin Dose 2 MG; Start 06/08/17 at 04:00 Docusate Sodium (Colace) 100 mg Q12H PRN PO CONSTIPATION; Start 06/08/17 at 04: 00 Magnesium Hydroxide (Milk Of Mag) 30 ml DAILY PRN PO CONSTIPATION; Start at 04:00 Bisacodyl (Dulcolax Supp) 10 mg DAILY PRN [place] CONSTIPATION; Start 06/08/17 at 04 :00 Heparin Sodium (Porcine) 5000 unit 5,000 unit Q8 SC Last administered on 14:34; Admin Dose 5,000 UNIT; Start 06/08/17 at 06:00 Meropenem/Sodium Chloride (Merrem 1 Gm/50 ml (Pmx)) 50 ml @ 100 mls/hr Q8 IVPB Last administered on 06/13/17 14:27; Admin Dose 100 MLS/HR; Start 06/08/17 at 06:00 Hydralazine HCl (Apresoline) 10 mg Q4H PRN IV ELEVATED SYSTOLIC BP Last administered on 06/08/17 19:24; Admin Dose 10 MG; Start 06/08/17 at 04:30 Diagnostic Test (Pha) 1 ea 1 ea 02 XX Last administered on 06/11/17 02:00; Admin Dose 1 EA; Start 06/09/17 at 02:00 Vancomycin HCl/ Sodium Chloride (Vancocin/NS) 250 ml @ 83.333 mls/ hr Q12H IVPB Last administered on 06/13/17 08:36; Admin Dose 83.333 MLS/HR; Start at 19:00 Povidone Iodine (Povidone-Iodine) 1 applic DAILY TOP Last administered on 08:39; Admin Dose 1 APPLIC; Start 06/08/17 at 09:00 Pantoprazole (Protonix Tab) 40 mg DAILY@06 PO Last administered on 06/12/17 05 :34; Admin Dose 40 MG; Start 06/09/17 at 06:00 Lorazepam (Ativan) 2 mg Q6H PRN IV AGITATION/ANXIETY Last administered on 19:35; Admin Dose 2 MG; Start 06/08/17 at 19:30 Spironolactone (Aldactone) 25 mg DAILY PO Last administered on 06/13/17 08:37 ; Admin Dose 25 MG; Start 06/11/17 at 13:00 Yobany Schaffer DO Jun 13, 2017 15:16
--- NOTE | 2017-06-13 17:54 | PN ---
Date/Time of Note Date/Time of Note DATE: 06/13/17 TIME: 17:47 Assessment/Plan VTE Prophylaxis VTE Prophylaxis Intervention: LMWH Lines/Catheters [facility] Saline Lock Urinary Cath still in place: Yes Reason Cath still needed: other (indicate) (Be discontinued today) Assessment/Plan Assessment/Plan 56 yo male with: 1. Acute respiratory failure, status post BiPAP on the first few days of admission, patient better currently, between nasal cannula 2 L and room air. CTA chest with pulmonary edema, ongoing CHF exacerbation also seems like patient has a right middle lobe pneumonia on chest x-ray and possible episodes of bronchospasms Appreciate recommendations from cardiology and pulmonary Repeat chest x-ray pending Continue diuresis with strict I's and O's.. again sounds clear on exam and off BIPAP this AM again but . Blood cx back with 1/2 coagulase-negative Staphylococcus, likely contaminant, repeat blood cultures negative. BP much better controlled Continue diuresis, strict I's and O's We will order for new PICC line placement in a.m. 2. Hypertension, uncontrolled on admission, better controlled BP this AM Titrate and add medications as needed for blood pressure. Continue diuresis 3. Pneumonia, possibly healthcare associated versus community-acquired, patient has been on vancomycin as an outpatient already, this will be continued , Also on Meropenem currently. Repeat blood cultures negative so far, will plan for reinsertion of a PICC line. Continue current medications. Lactic acid normalized. On 2 L nasal cannula but patient was found on room air , we had a long conversation with no episodes of shortness of breath while on room air. 4. Right Diabetic foot infection, previous MRI consistent with osteomyelitis of second toe, myositis and also tenosynovitis, On his last admission the recommendation was for patient to remain on long-term IV antibiotics as patient not keen on surgical amputation. We will put a new PICC line in a.m. He is to complete a 6-week course of antibiotics per infectious disease and podiatry. 5. Diabetes mellitus: A1c of 6.1, continue outpatient regimen at that time including metformin for now. Sliding scale insulin and diabetic diet. 6. Hyperlipidemia : Continue statin therapy. Prophylaxis : Lovenox for DVT prophylaxis, Pepcid for GI prophylaxis. Disposition : Patient currently on telemetry, stable, follow-up on chest x-ray today, PICC line placement in a.m. Subjective 24 Hr Interval Summary Free Text/Dictation Patient seems to be much more comfortable today, he is on diuresis, diuresing well with Lasix. Repeat chest x-ray pending this morning, appreciate cardiology evaluation, after discussion last week plan was to have a stress test done prior to discharge. Patient actually tolerating room air fairly well. Exam/Review of Systems Vital Signs Vitals Vital Signs Date Time Temp Pulse Resp B/P Pulse Ox O2 Delivery O2 Flow Rate FiO2 06/13/17 16:00 61 06/13/17 15:37 98.0 19 120/68 94 06/13/17 08:30 Nasal Cannula 2.0 06/12/17 05:46 40 Intake and Output 06/12/17 06/12/17 06/13/17 15:00 23:00 07:00 Intake Total 300 ml 1800 ml Output Total 2000 ml Balance 300 ml -200 ml Exam Constitutional: alert, oriented, well developed Respiratory: diminished breath sounds (At bases bilaterally), normal air movement Cardiovascular: nl pulses, regular rate and rhythm Gastrointestinal: non-tender, soft Musculoskeletal: other (Diabetic ulcers on toes healing.) Extremities: normal pulses, other (No edema, clubbing, cyanosis) Neurological: MAT[employer] 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 II-XII intact, nl mental status, nl speech, nl strength Results Result Diagram: 06/11/17 0500 06/12/17 0554 Results 24 hrs Laboratory Tests Test 06/12/17 22:00 06/13/17 07:45 06/13/17 11:56 06/13/17 17:09 Bedside Glucose 137 164 170 141 Medications Medications Current Medications Aspirin (Aspirin) 81 mg DAILY PO Last administered on 06/13/17 08:37; Admin Dose 81 MG; Start 06/08/17 at 09:00 Carvedilol (Coreg) 6.25 mg Q12 PO Last administered on 06/13/17 08:37; Admin Dose 6.25 MG; Start 06/08/17 at 09:00 Lactobacillus Acidophilus/ Rhamnosus (Culturelle) 1 cap BID PO Last administered on 06/13/17 08:37; Admin Dose 1 CAP; Start 06/08/17 at 09:00 Lisinopril (Zestril) 40 mg BID PO Last administered on 06/13/17 08:37; Admin Dose 40 MG; Start 06/08/17 at 09:00 Multivitamins Therapeutic (Theragran) 1 tab DAILY PO Last administered on 08:38; Admin Dose 1 TAB; Start 06/08/17 at 09:00 Verapamil HCl (Isoptin Sr) 360 mg DAILY PO Last administered on 06/13/17 08:38 ; Admin Dose 360 MG; Start 06/08/17 at 09:00 Vitamin E (Vitamin E) 400 units DAILY PO Last administered on 06/13/17 08:38; Admin Dose 400 UNITS; Start 06/08/17 at 09:00 Atorvastatin Calcium (Lipitor) 10 mg DAILY@21 PO Last administered on 22:01; Admin Dose 10 MG; Start 06/08/17 at 21:00 Ondansetron HCl (Zofran Inj) 4 mg Q6H PRN IV NAUSEA AND/OR VOMITING; Start at 04:00 Nitroglycerin (Nitroglycerin (Sl Tab) 0.4 Mg) 1 tab Q5M PRN SL CHEST PAIN; Start 06/08/17 at 04:00 Acetaminophen (Tylenol Tab) 650 mg Q6H PRN PO PAIN LEVEL 1-3 OR FEVER Last administered on 06/09/17 08:49; Admin Dose 650 MG; Start 06/08/17 at 04:00 Acetaminophen/ Hydrocodone Bitart ([place] (5/325)) 1 tab Q6H PRN PO PAIN LEVEL 4 -6 Last administered on 06/10/17 19:00; Admin Dose 1 TAB; Start 06/08/17 at 04: 00 Acetaminophen/ Hydrocodone Bitart ([place] (5/325)) 2 tab Q6H PRN PO PAIN LEVEL 7 -10 Last administered on 06/12/17 12:15; Admin Dose 2 TAB; Start 06/08/17 at 04 :00 Morphine Sulfate (morphine) 2 mg Q4H PRN IV PAIN LEVEL 7-10 Last administered on 06/08/17 19:58; Admin Dose 2 MG; Start 06/08/17 at 04:00 Docusate Sodium (Colace) 100 mg Q12H PRN PO CONSTIPATION; Start 06/08/17 at 04: 00 Magnesium Hydroxide (Milk Of Mag) 30 ml DAILY PRN PO CONSTIPATION; Start at 04:00 Bisacodyl (Dulcolax Supp) 10 mg DAILY PRN [place] CONSTIPATION; Start 06/08/17 at 04 :00 Heparin Sodium (Porcine) 5000 unit 5,000 unit Q8 SC Last administered on 14:34; Admin Dose 5,000 UNIT; Start 06/08/17 at 06:00 Meropenem/Sodium Chloride (Merrem 1 Gm/50 ml (Pmx)) 50 ml @ 100 mls/hr Q8 IVPB Last administered on 06/13/17 14:27; Admin Dose 100 MLS/HR; Start 06/08/17 at 06:00 Hydralazine HCl (Apresoline) 10 mg Q4H PRN IV ELEVATED SYSTOLIC BP Last administered on 06/08/17 19:24; Admin Dose 10 MG; Start 06/08/17 at 04:30 Diagnostic Test (Pha) 1 ea 1 ea 02 XX Last administered on 06/11/17 02:00; Admin Dose 1 EA; Start 06/09/17 at 02:00 Vancomycin HCl/ Sodium Chloride (Vancocin/NS) 250 ml @ 83.333 mls/ hr Q12H IVPB Last administered on 06/13/17 08:36; Admin Dose 83.333 MLS/HR; Start at 19:00 Povidone Iodine (Povidone-Iodine) 1 applic DAILY TOP Last administered on 08:39; Admin Dose 1 APPLIC; Start 06/08/17 at 09:00 Pantoprazole (Protonix Tab) 40 mg DAILY@06 PO Last administered on 06/12/17 05 :34; Admin Dose 40 MG; Start 06/09/17 at 06:00 Lorazepam (Ativan) 2 mg Q6H PRN IV AGITATION/ANXIETY Last administered on 19:35; Admin Dose 2 MG; Start 06/08/17 at 19:30 Spironolactone (Aldactone) 25 mg DAILY PO Last administered on 06/13/17 08:37 ; Admin Dose 25 MG; Start 06/11/17 at 13:00 LORENA WATKINS Jun 13, 2017 17:54 Spironolactone (Aldactone) 25 mg DAILY PO Last administered on 06/13/17 08:37 ; Admin Dose 25 MG; Start 06/11/17 at 13:00 LORENA WATKINS Jun 13, 2017 17:54
[2017-06-13] MEDS: ATORVASTATIN 10 MG TAB PO SCH (21:09)
[2017-06-14] VITALS (12 sets, daily range): BP systolic 134–188; BP diastolic 72–100; PULSE 71–80; RESP 16–19
[2017-06-14] MEDS: ACCU-CHEK XX SCH (00:25)
[2017-06-14] MEDS: hydrALAzine 20 MG INJ IV PRN (01:15)
[2017-06-14] MEDS: FUROSEMIDE 40 MG INJ IV SCH ×2 (04:26→18:00)
[2017-06-14] MEDS: MEROPENEM 1 GM/50ML(PMX) 50 ML IVPB SCH ×3 (04:27→21:30)
[2017-06-14] MEDS: VANCOMYCIN 1.5 GM in SOD CHLORIDE 0.9% 250 ML IVPB SCH ×2 (05:14→19:01)
[2017-06-14] MEDS: PANTOPRAZOLE (EC) 40 MG TAB PO SCH (06:25)
[2017-06-14] MEDS: HEPARIN 5,000 UNIT/0.5 ML VIAL SC SCH ×3 (06:25→21:41)
[2017-06-14] MEDS ORDERED: GLUCAGON 1 MG INJ IM PRN (06:30)
[2017-06-14] MEDS ORDERED: DEXTROSE 50% 50 ML SYRINGE IV PRN ×2 (06:30)
[2017-06-14] MEDS ORDERED: GLUCOSE GEL 15 GRAM TUBE PO PRN ×2 (06:30)
[2017-06-14] MEDS ORDERED: GLUCOSE GEL 15 GRAM TUBE BUCCAL PRN (06:30)
[2017-06-14 07:46] LABS: BASOPHIL # 0.1 10^3/ul (0.0-0.1); BASOPHILS % 1.3 % (0.0-2.0); EOSINOPHILS # 0.3 10^3/ul (0.0-0.5); EOSINOPHILS % 4.9 % (0.0-7.0); HEMATOCRIT 33.5 % (42.0-52.0); HEMOGLOBIN 11.3 g/dl (14.0-18.0); LYMPHOCYTES % 14.8 % (15.0-51.0); MEAN CORPUSCULAR HEMOGLOBIN 27.1 pg (29.0-33.0); MEAN CORPUSCULAR HGB CONC 33.7 g/dl (32.0-37.0); MEAN CORPUSCULAR VOLUME 80.3 fl (82.0-101.0); MEAN PLATELET VOLUME 10.2 fl (7.4-10.4); MONOCYTES % 14.6 % (0.0-11.0); NEUTROPHILS % 63.7 % (39.0-77.0); PLATELET COUNT 325 10^3/UL (140-415); RED BLOOD COUNT 4.17 10^6/ul (4.70-6.10); RED CELL DISTRIBUTION WIDTH 13.3 % (11.5-14.5); WHITE BLOOD COUNT 6.9 10^3/ul (4.8-10.8)
[2017-06-14 08:16] LABS: CALCIUM 8.9 mg/dl (8.4-10.2); CREATININE 0.68 mg/dl (0.61-1.24); MAGNESIUM 1.6 mg/dl (1.7-2.5); PHOSPHORUS 3.7 mg/dl (2.5-4.9); POTASSIUM 3.3 mmol/L (3.5-5.1)
[2017-06-14] MEDS: INSULIN ASPART [NOVOLOG] 3 ML PEN SC SCH ×4 (08:20→21:34)
[2017-06-14] MEDS: metFORMIN 500 MG TAB PO SCH ×2 (08:39→17:42)
[2017-06-14] MEDS: SPIRONOLACTONE 25 MG TAB PO SCH (08:39)
[2017-06-14] MEDS: ASPIRIN 81 MG TAB PO SCH (08:40)
[2017-06-14] MEDS: VERAPAMIL (SR) 180 MG TAB PO SCH (08:41)
[2017-06-14] MEDS: LACTOBACILLUS RHAMNOSUS CAP PO SCH ×2 (08:41→21:31)
[2017-06-14] MEDS: VITAMIN E 400 UNITS CAP PO SCH (08:41)
[2017-06-14] MEDS: MULTIVITAMINS THERAPEUTIC TAB PO SCH (08:42)
[2017-06-14] MEDS: LISINOPRIL 20 MG TAB PO SCH ×2 (08:42→21:31)
[2017-06-14] MEDS: POVIDONE IODINE 10% 28.4 GM OINT TOP SCH (08:45)
--- NOTE | 2017-06-14 09:08 | RADRPT ---
PROCEDURE: XR Chest. CLINICAL INDICATION: CHF TECHNIQUE: An AP view of the chest was obtained. COMPARISON: Chest x-ray dated 06/08/[address] pulmonary angiogram dated 06/09/2017 FINDINGS: There is minimal prominence of the interstitial and central pulmonary vascular markings with small bilateral pleural effusions. No focal airspace opacification or pneumothorax is seen. The cardiom ediastinal silhouette is within normal limits for size. The osseous structures are unremarkable. IMPRESSION: 1. Significant improved aeration of the lungs when compared to the prior examination. There is marie y minimal residual prominence of the pulmonary vascular and interstitial markings. 2. Small bilateral pleural effusions. RPTAT: HH .Sommer Scott MD, MD Date Time Electronically viewed and signed by .Sommer Scott MD, on 06/14/2017 09:08 .Jen/
--- NOTE | 2017-06-14 10:50 | CONS ---
Date/Time of Note Date/Time of Note DATE: 06/14/17 TIME: 10:46 Consult Date/Type/Reason Admit Date/Time Jun 08, 2017 at 05:27 Initial Consult Date Type of Consultation: Pulm Subjective appears comfortable. Objective Vital Signs Date Time Temp Pulse Resp B/P Pulse Ox O2 Delivery O2 Flow Rate FiO2 06/14/17 09:01 76 06/14/17 08:20 Nasal Cannula 2.0 06/14/17 07:07 99.1 19 162/81 98 06/12/17 05:46 40 Intake and Output 06/13/17 06/13/17 06/14/17 15:00 23:00 07:00 Intake Total 300 ml 650 ml 300 ml Output Total 2600 ml Balance 300 ml -1950 ml 300 ml Exam Constitutional: alert, oriented Head: normocephalic Eyes: EOMI, nl conjunctiva, nl lids ENMT: nl external ears & nose, nl lips & teeth, nl nasal mucosa & septum Neck: jvd, non-tender, supple Respiratory: crackles/rales, diminished breath sounds Cardiovascular: nl pulses, regular rate and rhythm Gastrointestinal: nl liver, spleen, non-tender, soft Extremities: normal pulses, other (ulcers ), pitting pedal edema Neurological: FAC ENGINEER II-XII 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, nl mental status Results/Medications Result Diagram: 06/14/17 0700 06/14/17 0700 Results 24 hrs Laboratory Tests Test 06/13/17 11:56 06/13/17 17:09 06/13/17 21:08 06/14/17 07:00 Bedside Glucose 170 141 124 White Blood Count 6.9 # Red Blood Count 4.17 L Hemoglobin 11.3 L Hematocrit 33.5 L Mean Corpuscular Volume 80.3 L Mean Corpuscular Hemoglobin 27.1 L Mean Corpuscular Hemoglobin Concent 33.7 Red Cell Distribution Width 13.3 Platelet Count 325 # Mean Platelet Volume 10.2 Neutrophils % 63.7 Lymphocytes % 14.8 L Monocytes % 14.6 H Eosinophils % 4.9 Basophils % 1.3 Nucleated Red Blood Cells % 0.0 Neutrophils # (Manual) 4.4 Lymphocytes # 1.0 Monocytes # 1.0 H Eosinophils # 0.3 Basophils # 0.1 Nucleated Red Blood Cells # 0.0 Sodium Level 141 Potassium Level 3.3 L Chloride Level 97 Carbon Dioxide Level 32 H Anion Gap 15 Blood Urea Nitrogen 20 Creatinine 0.68 Glucose Level 144 Calcium Level 8.9 Phosphorus Level 3.7 Magnesium Level 1.6 L Test 06/14/17 08:14 Bedside Glucose 150 Medications Current Medications Aspirin (Aspirin) 81 mg DAILY PO Last administered on 06/14/17 08:40; Admin Dose 81 MG; Start 06/08/17 at 09:00 Carvedilol (Coreg) 6.25 mg Q12 PO Last administered on 06/14/17 08:41; Admin Dose 6.25 MG; Start 06/08/17 at 09:00 Lactobacillus Acidophilus/ Rhamnosus (Culturelle) 1 cap BID PO Last administered on 06/14/17 08:41; Admin Dose 1 CAP; Start 06/08/17 at 09:00 Lisinopril (Zestril) 40 mg BID PO Last administered on 06/14/17 08:42; Admin Dose 40 MG; Start 06/08/17 at 09:00 Multivitamins Therapeutic (Theragran) 1 tab DAILY PO Last administered on 08:42; Admin Dose 1 TAB; Start 06/08/17 at 09:00 Verapamil HCl (Isoptin Sr) 360 mg DAILY PO Last administered on 06/14/17 08:41 ; Admin Dose 360 MG; Start 06/08/17 at 09:00 Vitamin E (Vitamin E) 400 units DAILY PO Last administered on 06/14/17 08:41; Admin Dose 400 UNITS; Start 06/08/17 at 09:00 Atorvastatin Calcium (Lipitor) 10 mg DAILY@21 PO Last administered on 21:09; Admin Dose 10 MG; Start 06/08/17 at 21:00 Ondansetron HCl (Zofran Inj) 4 mg Q6H PRN IV NAUSEA AND/OR VOMITING; Start at 04:00 Nitroglycerin (Nitroglycerin (Sl Tab) 0.4 Mg) 1 tab Q5M PRN SL CHEST PAIN; Start 06/08/17 at 04:00 Acetaminophen (Tylenol Tab) 650 mg Q6H PRN PO PAIN LEVEL 1-3 OR FEVER Last administered on 06/09/17 08:49; Admin Dose 650 MG; Start 06/08/17 at 04:00 Acetaminophen/ Hydrocodone Bitart ([place] (5/325)) 1 tab Q6H PRN PO PAIN LEVEL 4 -6 Last administered on 06/10/17 19:00; Admin Dose 1 TAB; Start 06/08/17 at 04: 00 Acetaminophen/ Hydrocodone Bitart ([place] (5/325)) 2 tab Q6H PRN PO PAIN LEVEL 7 -10 Last administered on 06/12/17 12:15; Admin Dose 2 TAB; Start 06/08/17 at 04 :00 Morphine Sulfate (morphine) 2 mg Q4H PRN IV PAIN LEVEL 7-10 Last administered on 06/08/17 19:58; Admin Dose 2 MG; Start 06/08/17 at 04:00 Docusate Sodium (Colace) 100 mg Q12H PRN PO CONSTIPATION; Start 06/08/17 at 04: 00 Magnesium Hydroxide (Milk Of Mag) 30 ml DAILY PRN PO CONSTIPATION; Start at 04:00 Bisacodyl (Dulcolax Supp) 10 mg DAILY PRN [place] CONSTIPATION; Start 06/08/17 at 04 :00 Heparin Sodium (Porcine) 5000 unit 5,000 unit Q8 SC Last administered on 06:25; Admin Dose 5,000 UNIT; Start 06/08/17 at 06:00 Meropenem/Sodium Chloride (Merrem 1 Gm/50 ml (Pmx)) 50 ml @ 100 mls/hr Q8 IVPB Last administered on 06/14/17 04:27; Admin Dose 100 MLS/HR; Start 06/08/17 at 06:00 Hydralazine HCl (Apresoline) 10 mg Q4H PRN IV ELEVATED SYSTOLIC BP Last administered on 06/14/17 01:15; Admin Dose 10 MG; Start 06/08/17 at 04:30 Diagnostic Test (Pha) 1 ea 1 ea 02 XX Last administered on 06/11/17 02:00; Admin Dose 1 EA; Start 06/09/17 at 02:00 Vancomycin HCl/ Sodium Chloride (Vancocin/NS) 250 ml @ 83.333 mls/ hr Q12H IVPB Last administered on 06/14/17 05:14; Admin Dose 83.333 MLS/HR; Start at 19:00 Povidone Iodine (Povidone-Iodine) 1 applic DAILY TOP Last administered on 08:45; Admin Dose 1 APPLIC; Start 06/08/17 at 09:00 Pantoprazole (Protonix Tab) 40 mg DAILY@06 PO Last administered on 06/14/17 06 :25; Admin Dose 40 MG; Start 06/09/17 at 06:00 Lorazepam (Ativan) 2 mg Q6H PRN IV AGITATION/ANXIETY Last administered on 19:35; Admin Dose 2 MG; Start 06/08/17 at 19:30 Spironolactone (Aldactone) 25 mg DAILY PO Last administered on 06/14/17 08:39 ; Admin Dose 25 MG; Start 06/11/17 at 13:00 Guaifenesin (Robitussin Liquid Cup) 300 mg Q4H PRN PO COUGH; Start 06/14/17 at 01:00 Miscellaneous Information 1 ea NOTE XX ; Start 06/14/17 at 06:30 Glucose (Glutose) 15 gm Q15M PRN PO DECREASED GLUCOSE; Start 06/14/17 at 06:30 Glucose (Glutose) 22.5 gm Q15M PRN PO DECREASED GLUCOSE; Start 06/14/17 at 06: 30 Dextrose (D50w Syringe) 25 ml Q15M PRN IV DECREASED GLUCOSE; Start 06/14/17 at 06:30 Dextrose (D50w Syringe) 50 ml Q15M PRN IV DECREASED GLUCOSE; Start 06/14/17 at 06:30 Glucagon (Glucagen) 1 mg Q15M PRN IM DECREASED GLUCOSE; Start 06/14/17 at 06:30 Glucose (Glutose) 15 gm Q15M PRN BUCCAL DECREASED GLUCOSE; Start 06/14/17 at 06 :30 Assessment/Plan Chief Complaint/Hosp Course Assessment. 1. Hypoxemic resp failure likely CHF, diastolic HF. 2. DM 3. HTN Plan. 1. Continue IV diuretics. Some clinical and radiographic improvement. 2. Decrease O2 as tolerated. Problems: RAY DURAND MD, [facility] Jun 14, 2017 10:49
[2017-06-14] MEDS ORDERED: POTASSIUM CHLORIDE (SR) 20 MEQ TAB PO STA (11:39)
--- NOTE | 2017-06-14 11:52 | PN ---
Date/Time of Note Date/Time of Note DATE: 06/14/17 TIME: 11:39 Assessment/Plan VTE Prophylaxis VTE Prophylaxis Intervention: SCD's Lines/Catheters IV [facility]ter [facility]from [facility] Urinary Cath still in place: No Assessment/Plan Assessment/Plan 56 yo male with: 1. Acute respiratory failure, status post BiPAP on the first few days of admission, patient better currently, between nasal cannula 2 L and room air. CTA chest with pulmonary edema, ongoing CHF exacerbation also seems like patient has a right middle lobe pneumonia on chest x-ray and possible episodes of bronchospasms Appreciate recommendations from cardiology and pulmonary Repeat chest x-ray done yesterday, much improved Continue diuresis with strict I's and O's.. On 2 L nasal cannula mostly by preference Stress test today. Blood cx back with 1/2 coagulase-negative Staphylococcus, likely contaminant, repeat blood cultures negative, will replace PICC line for long-term IV antibiotics for diabetic ulcers treatment. BP much better controlled We will order for new PICC line placement today 2. Hypertension, uncontrolled on admission, better controlled BP this AM Titrate and add medications as needed for blood pressure. Continue diuresis with Lasix and Aldactone, switch to p.o. in the next 24 hours 3. Pneumonia, possibly healthcare associated versus community-acquired, patient has been on vancomycin as an outpatient already, this will be continued , Also on Meropenem currently. Repeat blood cultures negative so far, will plan for reinsertion of a PICC line today. Continue current medications. Lactic acid normalized. On 2 L nasal cannula but patient was found on room air, we had a long conversation with no episodes of shortness of breath while on room air. 4. Right Diabetic foot infection, previous MRI consistent with osteomyelitis of second toe, myositis and also tenosynovitis, On his last admission the recommendation was for patient to remain on long-term IV antibiotics as patient not keen on surgical amputation. We will put a new PICC line today. He is to complete a 6-week course of antibiotics per infectious disease and podiatry. 5. Diabetes mellitus: A1c of 6.1, continue outpatient regimen at that time including metformin for now. Sliding scale insulin and diabetic diet. 6. Hyperlipidemia : Continue statin therapy. Prophylaxis : Lovenox for DVT prophylaxis, Pepcid for GI prophylaxis. Disposition : Patient currently on telemetry, stable, follow-up on chest x-ray today, PICC line placement today Stress test today. Subjective 24 Hr Interval Summary Free Text/Dictation Patient doing much better, he is lying flat in the bed actually, he has 2 L nasal cannula mostly by preference as chest x-ray is significantly improved. Plan for PICC line placement today, also stress test. Discharge planning in the next 24-48 hours hopefully is respiratory status back to baseline and stress test within normal Exam/Review of Systems Vital Signs Vitals Vital Signs Date Time Temp Pulse Resp B/P Pulse Ox O2 Delivery O2 Flow Rate FiO2 06/14/17 11:13 98.1 73 19 134/72 98 06/14/17 08:20 Nasal Cannula 2.0 06/12/17 05:46 40 Intake and Output 06/13/17 06/13/17 06/14/17 15:00 23:00 07:00 Intake Total 300 ml 650 ml 300 ml Output Total 2600 ml Balance 300 ml -1950 ml 300 ml Exam Constitutional: alert, oriented, other, well developed Respiratory: clear to auscultation, normal air movement Cardiovascular: nl pulses, regular rate and rhythm Gastrointestinal: non-tender, soft Musculoskeletal: other (Diabetic ulcers, toes, improving) Extremities: normal pulses, other (No edema, clubbing or cyanosis) 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, nl mental status, nl speech, nl strength Results Result Diagram: 06/14/17 0700 06/14/17 0700 Results 24 hrs Laboratory Tests Test 06/13/17 11:56 06/13/17 17:09 06/13/17 21:08 06/14/17 07:00 Bedside Glucose 170 141 124 White Blood Count 6.9 # Red Blood Count 4.17 L Hemoglobin 11.3 L Hematocrit 33.5 L Mean Corpuscular Volume 80.3 L Mean Corpuscular Hemoglobin 27.1 L Mean Corpuscular Hemoglobin Concent 33.7 Red Cell Distribution Width 13.3 Platelet Count 325 # Mean Platelet Volume 10.2 Neutrophils % 63.7 Lymphocytes % 14.8 L Monocytes % 14.6 H Eosinophils % 4.9 Basophils % 1.3 Nucleated Red Blood Cells % 0.0 Neutrophils # (Manual) 4.4 Lymphocytes # 1.0 Monocytes # 1.0 H Eosinophils # 0.3 Basophils # 0.1 Nucleated Red Blood Cells # 0.0 Sodium Level 141 Potassium Level 3.3 L Chloride Level 97 Carbon Dioxide Level 32 H Anion Gap 15 Blood Urea Nitrogen 20 Creatinine 0.68 Glucose Level 144 Calcium Level 8.9 Phosphorus Level 3.7 Magnesium Level 1.6 L Test 06/14/17 08:14 Bedside Glucose 150 Medications Medications Current Medications Aspirin (Aspirin) 81 mg DAILY PO Last administered on 06/14/17 08:40; Admin Dose 81 MG; Start 06/08/17 at 09:00 Carvedilol (Coreg) 6.25 mg Q12 PO Last administered on 06/14/17 08:41; Admin Dose 6.25 MG; Start 06/08/17 at 09:00 Lactobacillus Acidophilus/ Rhamnosus (Culturelle) 1 cap BID PO Last administered on 06/14/17 08:41; Admin Dose 1 CAP; Start 06/08/17 at 09:00 Lisinopril (Zestril) 40 mg BID PO Last administered on 06/14/17 08:42; Admin Dose 40 MG; Start 06/08/17 at 09:00 Multivitamins Therapeutic (Theragran) 1 tab DAILY PO Last administered on 08:42; Admin Dose 1 TAB; Start 06/08/17 at 09:00 Verapamil HCl (Isoptin Sr) 360 mg DAILY PO Last administered on 06/14/17 08:41 ; Admin Dose 360 MG; Start 06/08/17 at 09:00 Vitamin E (Vitamin E) 400 units DAILY PO Last administered on 06/14/17 08:41; Admin Dose 400 UNITS; Start 06/08/17 at 09:00 Atorvastatin Calcium (Lipitor) 10 mg DAILY@21 PO Last administered on 21:09; Admin Dose 10 MG; Start 06/08/17 at 21:00 Ondansetron HCl (Zofran Inj) 4 mg Q6H PRN IV NAUSEA AND/OR VOMITING; Start at 04:00 Nitroglycerin (Nitroglycerin (Sl Tab) 0.4 Mg) 1 tab Q5M PRN SL CHEST PAIN; Start 06/08/17 at 04:00 Acetaminophen (Tylenol Tab) 650 mg Q6H PRN PO PAIN LEVEL 1-3 OR FEVER Last administered on 06/09/17 08:49; Admin Dose 650 MG; Start 06/08/17 at 04:00 Acetaminophen/ Hydrocodone Bitart ([place] (5/325)) 1 tab Q6H PRN PO PAIN LEVEL 4 -6 Last administered on 06/10/17 19:00; Admin Dose 1 TAB; Start 06/08/17 at 04: 00 Acetaminophen/ Hydrocodone Bitart ([place] (5/325)) 2 tab Q6H PRN PO PAIN LEVEL 7 -10 Last administered on 06/12/17 12:15; Admin Dose 2 TAB; Start 06/08/17 at 04 :00 Morphine Sulfate (morphine) 2 mg Q4H PRN IV PAIN LEVEL 7-10 Last administered on 06/08/17 19:58; Admin Dose 2 MG; Start 06/08/17 at 04:00 Docusate Sodium (Colace) 100 mg Q12H PRN PO CONSTIPATION; Start 06/08/17 at 04: 00 Magnesium Hydroxide (Milk Of Mag) 30 ml DAILY PRN PO CONSTIPATION; Start at 04:00 Bisacodyl (Dulcolax Supp) 10 mg DAILY PRN [place] CONSTIPATION; Start 06/08/17 at 04 :00 Heparin Sodium (Porcine) 5000 unit 5,000 unit Q8 SC Last administered on 06:25; Admin Dose 5,000 UNIT; Start 06/08/17 at 06:00 Meropenem/Sodium Chloride (Merrem 1 Gm/50 ml (Pmx)) 50 ml @ 100 mls/hr Q8 IVPB Last administered on 06/14/17 04:27; Admin Dose 100 MLS/HR; Start 06/08/17 at 06:00 Hydralazine HCl (Apresoline) 10 mg Q4H PRN IV ELEVATED SYSTOLIC BP Last administered on 06/14/17 01:15; Admin Dose 10 MG; Start 06/08/17 at 04:30 Diagnostic Test (Pha) 1 ea 1 ea 02 XX Last administered on 06/11/17 02:00; Admin Dose 1 EA; Start 06/09/17 at 02:00 Vancomycin HCl/ Sodium Chloride (Vancocin/NS) 250 ml @ 83.333 mls/ hr Q12H IVPB Last administered on 06/14/17 05:14; Admin Dose 83.333 MLS/HR; Start at 19:00 Povidone Iodine (Povidone-Iodine) 1 applic DAILY TOP Last administered on 08:45; Admin Dose 1 APPLIC; Start 06/08/17 at 09:00 Pantoprazole (Protonix Tab) 40 mg DAILY@06 PO Last administered on 06/14/17 06 :25; Admin Dose 40 MG; Start 06/09/17 at 06:00 Lorazepam (Ativan) 2 mg Q6H PRN IV AGITATION/ANXIETY Last administered on 19:35; Admin Dose 2 MG; Start 06/08/17 at 19:30 Spironolactone (Aldactone) 25 mg DAILY PO Last administered on 06/14/17 08:39 ; Admin Dose 25 MG; Start 06/11/17 at 13:00 Guaifenesin (Robitussin Liquid Cup) 300 mg Q4H PRN PO COUGH; Start 06/14/17 at 01:00 Miscellaneous Information 1 ea NOTE XX ; Start 06/14/17 at 06:30 Glucose (Glutose) 15 gm Q15M PRN PO DECREASED GLUCOSE; Start 06/14/17 at 06:30 Glucose (Glutose) 22.5 gm Q15M PRN PO DECREASED GLUCOSE; Start 06/14/17 at 06: 30 Dextrose (D50w Syringe) 25 ml Q15M PRN IV DECREASED GLUCOSE; Start 06/14/17 at 06:30 Dextrose (D50w Syringe) 50 ml Q15M PRN IV DECREASED GLUCOSE; Start 06/14/17 at 06:30 Glucagon (Glucagen) 1 mg Q15M PRN IM DECREASED GLUCOSE; Start 06/14/17 at 06:30 Glucose (Glutose) 15 gm Q15M PRN BUCCAL DECREASED GLUCOSE; Start 06/14/17 at 06 :30 Miscellaneous Information (*Rx Drug Level Order Reminder*) VANCO TROUGH @ 0, 600 ON... ONCE ONCE XX ; Start 06/15/17 at 06:00; Stop 06/15/17 at 06:01 Procedures Procedures PROCEDURE: XR Chest. CLINICAL INDICATION: CHF TECHNIQUE: An AP view of the chest was obtained. COMPARISON: Chest x-ray dated 06/08/[address] pulmonary angiogram dated FINDINGS: There is minimal prominence of the interstitial and central pulmonary vascular markings with small bilateral pleural effusions. No focal airspace opacification or pneumothorax is seen. The cardiomediastinal silhouette is within normal limits for size. The osseous structures are unremarkable. IMPRESSION: 1. Significant improved aeration of the lungs when compared to the prior examination. There is very minimal residual prominence of the pulmonary vascular and interstitial markings. 2. Small bilateral pleural effusions. RPTAT: HH .Sommer Scott MD, MD Date Time Electronically viewed and signed by .Sommer Scott MD, MD on 06/14/2017 09 :08 LORENA WATKINS Jun 14, 2017 11:51
[2017-06-14] MEDS ORDERED: LIDOCAINE 1% (MPF) 5 ML VIAL SC ONE (12:00)
[2017-06-14] MEDS: GUAIFENESIN 20 MG/ML 5ML CUP PO PRN ×2 (12:19→21:33)
[2017-06-14] MEDS ORDERED: MAGNESIUM SULFATE 3 GM in SOD CHLORIDE 0.9% 100 ML IVPB ONE (13:00)
--- NOTE | 2017-06-14 13:36 | CONS ---
Date/Time of Note Date/Time of Note DATE: 06/14/17 TIME: 13:34 Assessment/Plan Assessment/Plan Additional Assessment/Plan Acute decompensated diastolic congestive heart failure Preserved ejection fraction Diabetic foot ulcer Diabetes Hypertension -Patient plan for nuclear cardiac perfusion study this morning but unfortunately was given 2 cups of coffee. Would plan for performing tomorrow. Chest x-ray done yesterday with improvement in pulmonary vascular congestion. With switch Lasix to daily, blood pressure trend improved. Maintain potassium above 4.0 and magnesium above 2.0. Consultation Date/Type/Reason Admit Date/Time Jun 08, 2017 at 05:27 Type of Consultation: cv 24 HR Interval Summary Free Text/Dictation Shortness of breath and cough has improved. Denies chest pain Exam/Review of Systems Vital Signs Vitals Vital Signs Date Time Temp Pulse Resp B/P Pulse Ox O2 Delivery O2 Flow Rate FiO2 06/14/17 12:12 71 06/14/17 11:13 98.1 19 134/72 98 06/14/17 08:20 Nasal Cannula 2.0 06/12/17 05:46 40 Intake and Output 06/13/17 06/13/17 06/14/17 15:00 23:00 07:00 Intake Total 300 ml 650 ml 300 ml Output Total 2600 ml Balance 300 ml -1950 ml 300 ml Exam No apparent distress Constitutional: alert, oriented Head: normocephalic Respiratory: other (Coarse breath sounds bilaterally, no wheezing) Cardiovascular: other (S1-S2 heard), regular rate and rhythm Gastrointestinal: bowel sounds, non-tender, soft Extremities: edema (Trace) Results Result Diagram: 06/14/17 0700 06/14/17 0700 Results 24 hrs Laboratory Tests Test 06/13/17 17:09 06/13/17 21:08 06/14/17 07:00 06/14/17 08:14 Bedside Glucose 141 124 150 White Blood Count 6.9 # Red Blood Count 4.17 L Hemoglobin 11.3 L Hematocrit 33.5 L Mean Corpuscular Volume 80.3 L Mean Corpuscular Hemoglobin 27.1 L Mean Corpuscular Hemoglobin Concent 33.7 Red Cell Distribution Width 13.3 Platelet Count 325 # Mean Platelet Volume 10.2 Neutrophils % 63.7 Lymphocytes % 14.8 L Monocytes % 14.6 H Eosinophils % 4.9 Basophils % 1.3 Nucleated Red Blood Cells % 0.0 Neutrophils # (Manual) 4.4 Lymphocytes # 1.0 Monocytes # 1.0 H Eosinophils # 0.3 Basophils # 0.1 Nucleated Red Blood Cells # 0.0 Sodium Level 141 Potassium Level 3.3 L Chloride Level 97 Carbon Dioxide Level 32 H Anion Gap 15 Blood Urea Nitrogen 20 Creatinine 0.68 Glucose Level 144 Calcium Level 8.9 Phosphorus Level 3.7 Magnesium Level 1.6 L Test 06/14/17 12:04 Bedside Glucose 162 Medications Medications Current Medications Aspirin (Aspirin) 81 mg DAILY PO Last administered on 06/14/17 08:40; Admin Dose 81 MG; Start 06/08/17 at 09:00 Carvedilol (Coreg) 6.25 mg Q12 PO Last administered on 06/14/17 08:41; Admin Dose 6.25 MG; Start 06/08/17 at 09:00 Lactobacillus Acidophilus/ Rhamnosus (Culturelle) 1 cap BID PO Last administered on 06/14/17 08:41; Admin Dose 1 CAP; Start 06/08/17 at 09:00 Lisinopril (Zestril) 40 mg BID PO Last administered on 06/14/17 08:42; Admin Dose 40 MG; Start 06/08/17 at 09:00 Multivitamins Therapeutic (Theragran) 1 tab DAILY PO Last administered on 08:42; Admin Dose 1 TAB; Start 06/08/17 at 09:00 Verapamil HCl (Isoptin Sr) 360 mg DAILY PO Last administered on 06/14/17 08:41 ; Admin Dose 360 MG; Start 06/08/17 at 09:00 Vitamin E (Vitamin E) 400 units DAILY PO Last administered on 06/14/17 08:41; Admin Dose 400 UNITS; Start 06/08/17 at 09:00 Atorvastatin Calcium (Lipitor) 10 mg DAILY@21 PO Last administered on 21:09; Admin Dose 10 MG; Start 06/08/17 at 21:00 Ondansetron HCl (Zofran Inj) 4 mg Q6H PRN IV NAUSEA AND/OR VOMITING; Start at 04:00 Nitroglycerin (Nitroglycerin (Sl Tab) 0.4 Mg) 1 tab Q5M PRN SL CHEST PAIN; Start 06/08/17 at 04:00 Acetaminophen (Tylenol Tab) 650 mg Q6H PRN PO PAIN LEVEL 1-3 OR FEVER Last administered on 06/09/17 08:49; Admin Dose 650 MG; Start 06/08/17 at 04:00 Acetaminophen/ Hydrocodone Bitart ([place] (5/325)) 1 tab Q6H PRN PO PAIN LEVEL 4 -6 Last administered on 06/10/17 19:00; Admin Dose 1 TAB; Start 06/08/17 at 04: 00 Acetaminophen/ Hydrocodone Bitart ([place] (5/325)) 2 tab Q6H PRN PO PAIN LEVEL 7 -10 Last administered on 06/12/17 12:15; Admin Dose 2 TAB; Start 06/08/17 at 04 :00 Morphine Sulfate (morphine) 2 mg Q4H PRN IV PAIN LEVEL 7-10 Last administered on 06/08/17 19:58; Admin Dose 2 MG; Start 06/08/17 at 04:00 Docusate Sodium (Colace) 100 mg Q12H PRN PO CONSTIPATION; Start 06/08/17 at 04: 00 Magnesium Hydroxide (Milk Of Mag) 30 ml DAILY PRN PO CONSTIPATION; Start at 04:00 Bisacodyl (Dulcolax Supp) 10 mg DAILY PRN [place] CONSTIPATION; Start 06/08/17 at 04 :00 Heparin Sodium (Porcine) 5000 unit 5,000 unit Q8 SC Last administered on 06:25; Admin Dose 5,000 UNIT; Start 06/08/17 at 06:00 Meropenem/Sodium Chloride (Merrem 1 Gm/50 ml (Pmx)) 50 ml @ 100 mls/hr Q8 IVPB Last administered on 06/14/17 04:27; Admin Dose 100 MLS/HR; Start 06/08/17 at 06:00 Hydralazine HCl (Apresoline) 10 mg Q4H PRN IV ELEVATED SYSTOLIC BP Last administered on 06/14/17 01:15; Admin Dose 10 MG; Start 06/08/17 at 04:30 Diagnostic Test (Pha) 1 ea 1 ea 02 XX Last administered on 06/11/17 02:00; Admin Dose 1 EA; Start 06/09/17 at 02:00 Vancomycin HCl/ Sodium Chloride (Vancocin/NS) 250 ml @ 83.333 mls/ hr Q12H IVPB Last administered on 06/14/17 05:14; Admin Dose 83.333 MLS/HR; Start at 19:00 Povidone Iodine (Povidone-Iodine) 1 applic DAILY TOP Last administered on 08:45; Admin Dose 1 APPLIC; Start 06/08/17 at 09:00 Pantoprazole (Protonix Tab) 40 mg DAILY@06 PO Last administered on 06/14/17 06 :25; Admin Dose 40 MG; Start 06/09/17 at 06:00 Lorazepam (Ativan) 2 mg Q6H PRN IV AGITATION/ANXIETY Last administered on 19:35; Admin Dose 2 MG; Start 06/08/17 at 19:30 Spironolactone (Aldactone) 25 mg DAILY PO Last administered on 06/14/17 08:39 ; Admin Dose 25 MG; Start 06/11/17 at 13:00 Guaifenesin (Robitussin Liquid Cup) 300 mg Q4H PRN PO COUGH Last administered on 06/14/17 12:19; Admin Dose 300 MG; Start 06/14/17 at 01:00 Miscellaneous Information 1 ea NOTE XX ; Start 06/14/17 at 06:30 Glucose (Glutose) 15 gm Q15M PRN PO DECREASED GLUCOSE; Start 06/14/17 at 06:30 Glucose (Glutose) 22.5 gm Q15M PRN PO DECREASED GLUCOSE; Start 06/14/17 at 06: 30 Dextrose (D50w Syringe) 25 ml Q15M PRN IV DECREASED GLUCOSE; Start 06/14/17 at 06:30 Dextrose (D50w Syringe) 50 ml Q15M PRN IV DECREASED GLUCOSE; Start 06/14/17 at 06:30 Glucagon (Glucagen) 1 mg Q15M PRN IM DECREASED GLUCOSE; Start 06/14/17 at 06:30 Glucose (Glutose) 15 gm Q15M PRN BUCCAL DECREASED GLUCOSE; Start 06/14/17 at 06 :30 Miscellaneous Information VANCO TROUGH @ 0,600 ON... ONCE ONCE XX ; Start at 06:00; Stop 06/15/17 at 06:01 Magnesium Sulfate/ Sodium Chloride (Magnesium Sulfate/NS) 106 ml @ 35.333 mls/ hr ONCE ONCE IVPB ; Start 06/14/17 at 13:00; Stop 06/14/17 at 15:59 Yobany Schaffer DO Jun 14, 2017 13:36
[2017-06-14] MEDS ORDERED: SOD CHLORIDE 0.9% 100 ML ONE (17:56)
--- NOTE | 2017-06-14 19:05 | RADRPT ---
PROCEDURE: Ultrasound guidance for placement of needle in left upper extremity vein. CLINICAL INDICATION: Venous access. TECHNIQUE: Limited sonography of the left upper extremity was performed. Ultrasound images were recorded and s tored in the patient's medical record. COMPARISON: None. FINDINGS: The ultrasound images demonstrate a patent left upper extremity vein. The PICC line was inserted by the PICC line nurse. IMPRESSION: 1. Ultrasound guidance for a needle placement in a left upper extremity vein. 2. The left upper extremity vein is patent. RPTAT: QQ .Mo Hess MD, MD Date Time Electronically viewed and signed by .Mo Hess MD, MD on 06/14/2017 19:05 .R/
--- NOTE | 2017-06-14 19:08 | RADRPT ---
PROCEDURE: XR Chest. CLINICAL INDICATION: Check PICC line position. TECHNIQUE: Single frontal view. COMPARISON: 06/13/2017. FINDINGS: There is a left arm PICC line with the tip in the lower superior vena cava. There is mild pulmonary edema, unchanged. The lungs are otherwise clear. The heart size is normal. There are small bilateral pleural effusions. There is no pneumothorax. IMPRESSION: 1. Left arm PICC line tip in satisfactory position. 2. Mild pulmonary edema, unchanged. 3. Small bilateral pleural effusions. RPTAT: QQ .Mo Hess MD, MD Date Time Electronically viewed and signed by .Mo Hess MD, MD on 06/14/2017 19:08 .R/
[2017-06-14] MEDS: ATORVASTATIN 10 MG TAB PO SCH (21:31)
[2017-06-15] VITALS (11 sets, daily range): BP systolic 127–183; BP diastolic 69–96; PULSE 70–75; RESP 18–19
[2017-06-15] MEDS: hydrALAzine 20 MG INJ IV PRN (00:27)
[2017-06-15] MEDS: ACCU-CHEK XX SCH (01:49)
[2017-06-15] MEDS: MEROPENEM 1 GM/50ML(PMX) 50 ML IVPB SCH ×3 (06:20→21:05)
[2017-06-15] MEDS: PANTOPRAZOLE (EC) 40 MG TAB PO SCH (06:20)
[2017-06-15] MEDS: FUROSEMIDE 40 MG INJ IV SCH ×2 (06:21→17:57)
[2017-06-15] MEDS: GUAIFENESIN 20 MG/ML 5ML CUP PO PRN ×2 (06:55→22:22)
[2017-06-15] MEDS: HEPARIN 5,000 UNIT/0.5 ML VIAL SC SCH ×3 (06:57→21:12)
[2017-06-15] MEDS: INSULIN ASPART [NOVOLOG] 3 ML PEN SC SCH ×4 (07:55→21:00)
[2017-06-15] MEDS: metFORMIN 500 MG TAB PO SCH ×2 (07:55→17:57)
[2017-06-15 08:16] LABS: BASOPHIL # 0.1 10^3/ul (0.0-0.1); BASOPHILS % 0.9 % (0.0-2.0); EOSINOPHILS # 0.3 10^3/ul (0.0-0.5); EOSINOPHILS % 3.3 % (0.0-7.0); HEMATOCRIT 33.3 % (42.0-52.0); HEMOGLOBIN 11.1 g/dl (14.0-18.0); LYMPHOCYTES # 0.9 10^3/ul (0.8-2.9); LYMPHOCYTES % 12.5 % (15.0-51.0); MEAN CORPUSCULAR HEMOGLOBIN 27.1 pg (29.0-33.0); MEAN CORPUSCULAR HGB CONC 33.3 g/dl (32.0-37.0); MEAN CORPUSCULAR VOLUME 81.2 fl (82.0-101.0); MEAN PLATELET VOLUME 10.4 fl (7.4-10.4); MONOCYTES % 12.8 % (0.0-11.0); NEUTROPHILS % 69.7 % (39.0-77.0); PLATELET COUNT 361 10^3/UL (140-415); RED CELL DISTRIBUTION WIDTH 13.6 % (11.5-14.5); WHITE BLOOD COUNT 7.5 10^3/ul (4.8-10.8)
[2017-06-15] MEDS: ASPIRIN 81 MG TAB PO SCH (08:26)
[2017-06-15] MEDS: SPIRONOLACTONE 25 MG TAB PO SCH (08:26)
[2017-06-15] MEDS: VERAPAMIL (SR) 180 MG TAB PO SCH (08:27)
[2017-06-15] MEDS: LACTOBACILLUS RHAMNOSUS CAP PO SCH ×2 (08:27→21:05)
[2017-06-15] MEDS: MULTIVITAMINS THERAPEUTIC TAB PO SCH (08:27)
[2017-06-15] MEDS: LISINOPRIL 20 MG TAB PO SCH ×2 (08:28→21:05)
[2017-06-15] MEDS: VITAMIN E 400 UNITS CAP PO SCH (08:28)
[2017-06-15] MEDS: POVIDONE IODINE 10% 28.4 GM OINT TOP SCH (08:28)
[2017-06-15 08:44] LABS: CALCIUM 9.2 mg/dl (8.4-10.2); CREATININE 0.73 mg/dl (0.61-1.24)
[2017-06-15] MEDS: VANCOMYCIN 1.5 GM in SOD CHLORIDE 0.9% 250 ML IVPB SCH ×2 (09:36→18:16)
[2017-06-15] MEDS ORDERED: REGADENOSON 0.4 MG/5 ML SYG ONE (10:39)
--- NOTE | 2017-06-15 12:06 | CONS ---
Date/Time of Note Date/Time of Note DATE: 06/15/17 TIME: 12:04 Assessment/Plan Assessment/Plan Additional Assessment/Plan Acute decompensated diastolic congestive heart failure Preserved ejection fraction Diabetic foot ulcer Diabetes Hypertension -Lung examination continues to improve as well as chest x-ray. Would consider switching diuretics to p.o. in the next 1-2 days. Will increase dose of Coreg given need for as needed hydralazine. Patient for nuclear cardiac perfusion study today. Consultation Date/Type/Reason Admit Date/Time Jun 08, 2017 at 05:27 Type of Consultation: cv 24 HR Interval Summary Free Text/Dictation Denies shortness of breath, cough improved. Denies chest pain Exam/Review of Systems Vital Signs Vitals Vital Signs Date Time Temp Pulse Resp B/P Pulse Ox O2 Delivery O2 Flow Rate FiO2 06/15/17 08:36 74 06/15/17 07:40 Nasal Cannula 2.0 06/15/17 07:26 98.7 18 127/69 94 06/12/17 05:46 40 Intake and Output 06/14/17 06/14/17 06/15/17 15:00 23:00 07:00 Intake Total 800 ml Output Total 1400 ml Balance -600 ml Exam No apparent distress Constitutional: alert, oriented Head: normocephalic Respiratory: other (Coarse breath sounds bilaterally, no wheezing) Cardiovascular: other (s1 S2 heard), regular rate and rhythm Gastrointestinal: bowel sounds, non-tender, soft Extremities: edema Results Result Diagram: 06/15/17 0645 06/15/17 0645 Results 24 hrs Laboratory Tests Test 06/14/17 17:39 06/14/17 21:29 06/15/17 06:45 06/15/17 08:22 Bedside Glucose 151 179 148 White Blood Count 7.5 Red Blood Count 4.10 L Hemoglobin 11.1 L Hematocrit 33.3 L Mean Corpuscular Volume 81.2 L Mean Corpuscular Hemoglobin 27.1 L Mean Corpuscular Hemoglobin Concent 33.3 Red Cell Distribution Width 13.6 Platelet Count 361 Mean Platelet Volume 10.4 Neutrophils % 69.7 Lymphocytes % 12.5 L Monocytes % 12.8 H Eosinophils % 3.3 Basophils % 0.9 Nucleated Red Blood Cells % 0.0 Neutrophils # (Manual) 5.2 Lymphocytes # 0.9 Monocytes # 1.0 H Eosinophils # 0.3 Basophils # 0.1 Nucleated Red Blood Cells # 0.0 Sodium Level 139 Potassium Level 4.0 Chloride Level 98 Carbon Dioxide Level 30 Anion Gap 15 Blood Urea Nitrogen 20 Creatinine 0.73 Glucose Level 147 Calcium Level 9.2 Phosphorus Level 4.0 Magnesium Level 2.0 Vancomycin Level Trough 14.3 Medications Medications Current Medications Aspirin (Aspirin) 81 mg DAILY PO Last administered on 06/15/17 08:26; Admin Dose 81 MG; Start 06/08/17 at 09:00 Carvedilol (Coreg) 6.25 mg Q12 PO Last administered on 06/15/17 08:26; Admin Dose 6.25 MG; Start 06/08/17 at 09:00 Lactobacillus Acidophilus/ Rhamnosus (Culturelle) 1 cap BID PO Last administered on 06/15/17 08:27; Admin Dose 1 CAP; Start 06/08/17 at 09:00 Lisinopril (Zestril) 40 mg BID PO Last administered on 06/15/17 08:28; Admin Dose 40 MG; Start 06/08/17 at 09:00 Multivitamins Therapeutic (Theragran) 1 tab DAILY PO Last administered on 08:27; Admin Dose 1 TAB; Start 06/08/17 at 09:00 Verapamil HCl (Isoptin Sr) 360 mg DAILY PO Last administered on 06/15/17 08:27 ; Admin Dose 360 MG; Start 06/08/17 at 09:00 Vitamin E (Vitamin E) 400 units DAILY PO Last administered on 06/15/17 08:28; Admin Dose 400 UNITS; Start 06/08/17 at 09:00 Atorvastatin Calcium (Lipitor) 10 mg DAILY@21 PO Last administered on 21:31; Admin Dose 10 MG; Start 06/08/17 at 21:00 Ondansetron HCl (Zofran Inj) 4 mg Q6H PRN IV NAUSEA AND/OR VOMITING; Start at 04:00 Nitroglycerin (Nitroglycerin (Sl Tab) 0.4 Mg) 1 tab Q5M PRN SL CHEST PAIN; Start 06/08/17 at 04:00 Acetaminophen (Tylenol Tab) 650 mg Q6H PRN PO PAIN LEVEL 1-3 OR FEVER Last administered on 06/09/17 08:49; Admin Dose 650 MG; Start 06/08/17 at 04:00 Acetaminophen/ Hydrocodone Bitart ([place] (5/325)) 1 tab Q6H PRN PO PAIN LEVEL 4 -6 Last administered on 06/10/17 19:00; Admin Dose 1 TAB; Start 06/08/17 at 04: 00 Acetaminophen/ Hydrocodone Bitart ([place] (5/325)) 2 tab Q6H PRN PO PAIN LEVEL 7 -10 Last administered on 06/12/17 12:15; Admin Dose 2 TAB; Start 06/08/17 at 04 :00 Morphine Sulfate (morphine) 2 mg Q4H PRN IV PAIN LEVEL 7-10 Last administered on 06/08/17 19:58; Admin Dose 2 MG; Start 06/08/17 at 04:00 Docusate Sodium (Colace) 100 mg Q12H PRN PO CONSTIPATION; Start 06/08/17 at 04: 00 Magnesium Hydroxide (Milk Of Mag) 30 ml DAILY PRN PO CONSTIPATION; Start at 04:00 Bisacodyl (Dulcolax Supp) 10 mg DAILY PRN [place] CONSTIPATION; Start 06/08/17 at 04 :00 Heparin Sodium (Porcine) 5000 unit 5,000 unit Q8 SC Last administered on 06:57; Admin Dose 5,000 UNIT; Start 06/08/17 at 06:00 Meropenem/Sodium Chloride (Merrem 1 Gm/50 ml (Pmx)) 50 ml @ 100 mls/hr Q8 IVPB Last administered on 06/15/17 06:20; Admin Dose 100 MLS/HR; Start 06/08/17 at 06:00 Hydralazine HCl (Apresoline) 10 mg Q4H PRN IV ELEVATED SYSTOLIC BP Last administered on 06/15/17 00:27; Admin Dose 10 MG; Start 06/08/17 at 04:30 Diagnostic Test (Pha) 1 ea 1 ea 02 XX Last administered on 06/11/17 02:00; Admin Dose 1 EA; Start 06/09/17 at 02:00 Vancomycin HCl/ Sodium Chloride (Vancocin/NS) 250 ml @ 83.333 mls/ hr Q12H IVPB Last administered on 06/15/17 09:36; Admin Dose 83.333 MLS/HR; Start at 19:00 Povidone Iodine (Povidone-Iodine) 1 applic DAILY TOP Last administered on 08:28; Admin Dose 1 APPLIC; Start 06/08/17 at 09:00 Pantoprazole (Protonix Tab) 40 mg DAILY@06 PO Last administered on 06/15/17 06 :20; Admin Dose 40 MG; Start 06/09/17 at 06:00 Lorazepam (Ativan) 2 mg Q6H PRN IV AGITATION/ANXIETY Last administered on 19:35; Admin Dose 2 MG; Start 06/08/17 at 19:30 Spironolactone (Aldactone) 25 mg DAILY PO Last administered on 06/15/17 08:26 ; Admin Dose 25 MG; Start 06/11/17 at 13:00 Guaifenesin (Robitussin Liquid Cup) 300 mg Q4H PRN PO COUGH Last administered on 06/15/17 06:55; Admin Dose 300 MG; Start 06/14/17 at 01:00 Miscellaneous Information 1 ea NOTE XX ; Start 06/14/17 at 06:30 Glucose (Glutose) 15 gm Q15M PRN PO DECREASED GLUCOSE; Start 06/14/17 at 06:30 Glucose (Glutose) 22.5 gm Q15M PRN PO DECREASED GLUCOSE; Start 06/14/17 at 06: 30 Dextrose (D50w Syringe) 25 ml Q15M PRN IV DECREASED GLUCOSE; Start 06/14/17 at 06:30 Dextrose (D50w Syringe) 50 ml Q15M PRN IV DECREASED GLUCOSE; Start 06/14/17 at 06:30 Glucagon (Glucagen) 1 mg Q15M PRN IM DECREASED GLUCOSE; Start 06/14/17 at 06:30 Glucose (Glutose) 15 gm Q15M PRN BUCCAL DECREASED GLUCOSE; Start 06/14/17 at 06 :30 IV Flush (NS 10 ml) 10 ml PRN PRN IV IV PROTOCOL; Start 06/14/17 at 19:00 Yobany Schaffer DO Jun 15, 2017 12:06
--- NOTE | 2017-06-15 15:11 | CONS ---
Date/Time of Note Date/Time of Note DATE: 06/15/17 TIME: 15:09 Consult Date/Type/Reason Admit Date/Time Jun 08, 2017 at 05:27 Type of Consultation: Pulmonary Subjective No new events. Patient remains stable. Nuclear perfusion study today. PICC line placement yesterday. Objective Vital Signs Date Time Temp Pulse Resp B/P Pulse Ox O2 Delivery O2 Flow Rate FiO2 06/15/17 12:52 98.4 78 18 147/69 96 06/15/17 07:40 Nasal Cannula 2.0 06/12/17 05:46 40 Intake and Output 06/14/17 06/14/17 06/15/17 15:00 23:00 07:00 Intake Total 800 ml Output Total 1400 ml Balance -600 ml Exam Constitutional: alert, oriented Head: normocephalic Eyes: EOMI, nl conjunctiva, nl lids ENMT: nl external ears & nose, nl lips & teeth, nl nasal mucosa & septum Neck: jvd, non-tender, supple Respiratory: crackles/rales, diminished breath sounds Cardiovascular: nl pulses, regular rate and rhythm Gastrointestinal: nl liver, spleen, non-tender, soft Extremities: normal pulses, other (ulcers ), pitting pedal edema Neurological: [employer] II-XII intact, nl mental status Results/Medications Result Diagram: 06/15/17 0645 06/15/17 0645 Results 24 hrs Laboratory Tests Test 06/14/17 17:39 06/14/17 21:29 06/15/17 06:45 06/15/17 08:22 Bedside Glucose 151 179 148 White Blood Count 7.5 Red Blood Count 4.10 L Hemoglobin 11.1 L Hematocrit 33.3 L Mean Corpuscular Volume 81.2 L Mean Corpuscular Hemoglobin 27.1 L Mean Corpuscular Hemoglobin Concent 33.3 Red Cell Distribution Width 13.6 Platelet Count 361 Mean Platelet Volume 10.4 Neutrophils % 69.7 Lymphocytes % 12.5 L Monocytes % 12.8 H Eosinophils % 3.3 Basophils % 0.9 Nucleated Red Blood Cells % 0.0 Neutrophils # (Manual) 5.2 Lymphocytes # 0.9 Monocytes # 1.0 H Eosinophils # 0.3 Basophils # 0.1 Nucleated Red Blood Cells # 0.0 Sodium Level 139 Potassium Level 4.0 Chloride Level 98 Carbon Dioxide Level 30 Anion Gap 15 Blood Urea Nitrogen 20 Creatinine 0.73 Glucose Level 147 Calcium Level 9.2 Phosphorus Level 4.0 Magnesium Level 2.0 Vancomycin Level Trough 14.3 Medications Current Medications Aspirin (Aspirin) 81 mg DAILY PO Last administered on 06/15/17 08:26; Admin Dose 81 MG; Start 06/08/17 at 09:00 Lactobacillus Acidophilus/ Rhamnosus (Culturelle) 1 cap BID PO Last administered on 06/15/17 08:27; Admin Dose 1 CAP; Start 06/08/17 at 09:00 Lisinopril (Zestril) 40 mg BID PO Last administered on 06/15/17 08:28; Admin Dose 40 MG; Start 06/08/17 at 09:00 Multivitamins Therapeutic (Theragran) 1 tab DAILY PO Last administered on 08:27; Admin Dose 1 TAB; Start 06/08/17 at 09:00 Verapamil HCl (Isoptin Sr) 360 mg DAILY PO Last administered on 06/15/17 08:27 ; Admin Dose 360 MG; Start 06/08/17 at 09:00 Vitamin E (Vitamin E) 400 units DAILY PO Last administered on 06/15/17 08:28; Admin Dose 400 UNITS; Start 06/08/17 at 09:00 Atorvastatin Calcium (Lipitor) 10 mg DAILY@21 PO Last administered on 21:31; Admin Dose 10 MG; Start 06/08/17 at 21:00 Ondansetron HCl (Zofran Inj) 4 mg Q6H PRN IV NAUSEA AND/OR VOMITING; Start at 04:00 Nitroglycerin (Nitroglycerin (Sl Tab) 0.4 Mg) 1 tab Q5M PRN SL CHEST PAIN; Start 06/08/17 at 04:00 Acetaminophen (Tylenol Tab) 650 mg Q6H PRN PO PAIN LEVEL 1-3 OR FEVER Last administered on 06/09/17 08:49; Admin Dose 650 MG; Start 06/08/17 at 04:00 Acetaminophen/ Hydrocodone Bitart ([place] (5/325)) 1 tab Q6H PRN PO PAIN LEVEL 4 -6 Last administered on 06/10/17 19:00; Admin Dose 1 TAB; Start 06/08/17 at 04: 00 Acetaminophen/ Hydrocodone Bitart ([place] (5/325)) 2 tab Q6H PRN PO PAIN LEVEL 7 -10 Last administered on 06/12/17 12:15; Admin Dose 2 TAB; Start 06/08/17 at 04 :00 Morphine Sulfate (morphine) 2 mg Q4H PRN IV PAIN LEVEL 7-10 Last administered on 06/08/17 19:58; Admin Dose 2 MG; Start 06/08/17 at 04:00 Docusate Sodium (Colace) 100 mg Q12H PRN PO CONSTIPATION; Start 06/08/17 at 04: 00 Magnesium Hydroxide (Milk Of Mag) 30 ml DAILY PRN PO CONSTIPATION; Start at 04:00 Bisacodyl (Dulcolax Supp) [address] CONSTIPATION; Start 06/08/17 at 04 :00 Heparin Sodium (Porcine) 5000 unit 5,000 unit Q8 SC Last administered on 13:38; Admin Dose 5,000 UNIT; Start 06/08/17 at 06:00 Meropenem/Sodium Chloride (Merrem 1 Gm/50 ml (Pmx)) 50 ml @ 100 mls/hr Q8 IVPB Last administered on 06/15/17 13:26; Admin Dose 100 MLS/HR; Start 06/08/17 at 06:00 Hydralazine HCl (Apresoline) 10 mg Q4H PRN IV ELEVATED SYSTOLIC BP Last administered on 06/15/17 00:27; Admin Dose 10 MG; Start 06/08/17 at 04:30 Diagnostic Test (Pha) 1 ea 1 ea 02 XX Last administered on 06/11/17 02:00; Admin Dose 1 EA; Start 06/09/17 at 02:00 Vancomycin HCl/ Sodium Chloride (Vancocin/NS) 250 ml @ 83.333 mls/ hr Q12H IVPB Last administered on 06/15/17 09:36; Admin Dose 83.333 MLS/HR; Start at 19:00 Povidone Iodine (Povidone-Iodine) 1 applic DAILY TOP Last administered on 08:28; Admin Dose 1 APPLIC; Start 06/08/17 at 09:00 Pantoprazole (Protonix Tab) 40 mg DAILY@06 PO Last administered on 06/15/17 06 :20; Admin Dose 40 MG; Start 06/09/17 at 06:00 Lorazepam (Ativan) 2 mg Q6H PRN IV AGITATION/ANXIETY Last administered on 19:35; Admin Dose 2 MG; Start 06/08/17 at 19:30 Spironolactone (Aldactone) 25 mg DAILY PO Last administered on 06/15/17 08:26 ; Admin Dose 25 MG; Start 06/11/17 at 13:00 Guaifenesin (Robitussin Liquid Cup) 300 mg Q4H PRN PO COUGH Last administered on 06/15/17 06:55; Admin Dose 300 MG; Start 06/14/17 at 01:00 Miscellaneous Information 1 ea NOTE XX ; Start 06/14/17 at 06:30 Glucose (Glutose) 15 gm Q15M PRN PO DECREASED GLUCOSE; Start 06/14/17 at 06:30 Glucose (Glutose) 22.5 gm Q15M PRN PO DECREASED GLUCOSE; Start 06/14/17 at 06: 30 Dextrose (D50w Syringe) 25 ml Q15M PRN IV DECREASED GLUCOSE; Start 06/14/17 at 06:30 Dextrose (D50w Syringe) 50 ml Q15M PRN IV DECREASED GLUCOSE; Start 06/14/17 at 06:30 Glucagon (Glucagen) 1 mg Q15M PRN IM DECREASED GLUCOSE; Start 06/14/17 at 06:30 Glucose (Glutose) 15 gm Q15M PRN BUCCAL DECREASED GLUCOSE; Start 06/14/17 at 06 :30 IV Flush (NS 10 ml) 10 ml PRN PRN IV IV PROTOCOL; Start 06/14/17 at 19:00 Carvedilol (Coreg) 12.5 mg Q12 PO ; Start 06/15/17 at 21:00 Assessment/Plan Chief Complaint/Hosp Course Assessment. 1. Hypoxemic resp failure likely CHF, diastolic HF. 2. DM 3. HTN Plan. 1. Continue IV diuretics. Some clinical and radiographic improvement. Agree with decreasing diuretics. 2. Decrease O2 as tolerated. 3. Cardiac recommendations Problems: RAY DURAND MD, [facility] Jun 15, 2017 15:11
--- NOTE | 2017-06-15 15:13 | RADRPT ---
PROCEDURE: Nuclear medicine myocardial stress and rest scan. CLINICAL INDICATION: Chest pain. TECHNIQUE: The patient was stressed with 0.4 mg IV Lexiscan. 10 mCi technetium 99m Tetrofosmin ( Myoview) was administered rest. 30 mCi technetium 99m Tetrofosmin (Myoview) was administered duri ng stress. Images were obtained and reconstructed in the short axis, horizontal long axis, and vert ical long axis. Gated images were obtained and ejection fraction was calculated. COMPARISON: No prior study is available for comparison. FINDINGS: The stress and rest images demonstrate normal uptake throughout. There is no fixed abnormality or r eversible abnormality. There is no evidence of transient ischemic dilatation. Wall motion is normal. There is normal wall thickening during systole. Ejection fraction at stress is 60%. IMPRESSION: 1. No evidence of stress induced myocardial ischemia. 2. Ejection fraction at stress is 60%. RPTAT: QQ .Mo Hess MD, MD Date Time Electronically viewed and signed by .Mo Hess MD, on 06/15/2017 15:12 .R/
--- NOTE | 2017-06-15 18:36 | PN ---
Date/Time of Note Date/Time of Note DATE: 06/15/17 TIME: 18:30 Assessment/Plan VTE Prophylaxis VTE Prophylaxis Intervention: heparin Lines/Catheters IV Catheter Type (from Nrs): PICC Line Central line still needed: Yes (For IV access) Urinary Cath still in place: No Assessment/Plan Assessment/Plan 56 yo male with: 1. Acute respiratory failure, status post BiPAP on the first few days of admission, patient better currently, between nasal cannula 2 L and room air. CTA chest with pulmonary edema, ongoing CHF exacerbation also seems like patient has a right middle lobe pneumonia on chest x-ray and possible episodes of bronchospasms Appreciate recommendations from cardiology and pulmonary Patient much improved, on room air most of the time, no BiPAP overnight. Ambulating on room air. Stress test negative Repeat chest x-ray ordered for tomorrow morning, Lasix changed to p.o. starting tomorrow morning. Blood cx back with 1/2 coagulase-negative Staphylococcus, likely contaminant, repeat blood cultures negative, new PICC line in place BP much better controlled. 2. Hypertension, uncontrolled on admission, better controlled BP this AM Titrate and add medications as needed for blood pressure. Continue diuresis with Lasix po and Aldactone. 3. Pneumonia, possibly healthcare associated versus community-acquired, patient has been on vancomycin as an outpatient already, this will be continued , Also on Meropenem currently. Repeat blood cultures NGTD. Continue current medications. New PICC line in place. On room air 4. Right Diabetic foot infection, previous MRI consistent with osteomyelitis of second toe, myositis and also tenosynovitis, On his last admission the recommendation was for patient to remain on long-term IV antibiotics as patient not keen on surgical amputation. New PICC line placed yesterday. He is to complete a 6-week course of antibiotics per infectious disease and podiatry. 5. Diabetes mellitus: A1c of 6.1, continue outpatient regimen at that time including metformin for now. Sliding scale insulin and diabetic diet. 6. Hyperlipidemia : Continue statin therapy. Prophylaxis : Lovenox for DVT prophylaxis, Pepcid for GI prophylaxis. Disposition : Patient currently on telemetry, stable, switch to p.o. diuretics by tomorrow morning, follow-up chest x-ray in AM, D/c plan for Tuesday Subjective 24 Hr Interval Summary Free Text/Dictation Patient doing well today, has been on room air for the past 24 hours now, did not use BiPAP overnight. Diuresing very well with stable renal function, will change diuretic to p.o. today. Repeat chest x-ray in a.m. and discharge planning by Tuesday. A new PICC line has been placed, patient will need to continue outpatient IV antibiotics for his diabetic foot ulcers once his discharged. Exam/Review of Systems Vital Signs Vitals Vital Signs Date Time Temp Pulse Resp B/P Pulse Ox O2 Delivery O2 Flow Rate FiO2 06/15/17 16:22 73 06/15/17 15:12 98.4 18 167/79 98 06/15/17 07:40 Nasal Cannula 2.0 06/12/17 05:46 40 Intake and Output 06/14/17 06/14/17 06/15/17 15:00 23:00 07:00 Intake Total 800 ml Output Total 1400 ml Balance -600 ml Exam Constitutional: alert, oriented, well developed Respiratory: clear to auscultation, normal air movement Cardiovascular: nl pulses, regular rate and rhythm Gastrointestinal: non-tender, soft Musculoskeletal: other (Toes with ulceration areas all healing well.) Extremities: normal pulses, other (No edema, clubbing or cyanosis) Neurological: [employer] II-XII intact, nl mental status, nl speech, nl strength Results Result Diagram: 06/15/17 0645 06/15/17 0645 Results 24 hrs Laboratory Tests Test 06/14/17 21:29 06/15/17 06:45 06/15/17 08:22 06/15/17 17:55 Bedside Glucose 179 148 216 White Blood Count 7.5 Red Blood Count 4.10 L Hemoglobin 11.1 L Hematocrit 33.3 L Mean Corpuscular Volume 81.2 L Mean Corpuscular Hemoglobin 27.1 L Mean Corpuscular Hemoglobin Concent 33.3 Red Cell Distribution Width 13.6 Platelet Count 361 Mean Platelet Volume 10.4 Neutrophils % 69.7 Lymphocytes % 12.5 L Monocytes % 12.8 H Eosinophils % 3.3 Basophils % 0.9 Nucleated Red Blood Cells % 0.0 Neutrophils # (Manual) 5.2 Lymphocytes # 0.9 Monocytes # 1.0 H Eosinophils # 0.3 Basophils # 0.1 Nucleated Red Blood Cells # 0.0 Sodium Level 139 Potassium Level 4.0 Chloride Level 98 Carbon Dioxide Level 30 Anion Gap 15 Blood Urea Nitrogen 20 Creatinine 0.73 Glucose Level 147 Calcium Level 9.2 Phosphorus Level 4.0 Magnesium Level 2.0 Vancomycin Level Trough 14.3 Medications Medications Current Medications Aspirin (Aspirin) 81 mg DAILY PO Last administered on 06/15/17 08:26; Admin Dose 81 MG; Start 06/08/17 at 09:00 Lactobacillus Acidophilus/ Rhamnosus (Culturelle) 1 cap BID PO Last administered on 06/15/17 08:27; Admin Dose 1 CAP; Start 06/08/17 at 09:00 Lisinopril (Zestril) 40 mg BID PO Last administered on 06/15/17 08:28; Admin Dose 40 MG; Start 06/08/17 at 09:00 Multivitamins Therapeutic (Theragran) 1 tab DAILY PO Last administered on 08:27; Admin Dose 1 TAB; Start 06/08/17 at 09:00 Verapamil HCl (Isoptin Sr) 360 mg DAILY PO Last administered on 06/15/17 08:27 ; Admin Dose 360 MG; Start 06/08/17 at 09:00 Vitamin E (Vitamin E) 400 units DAILY PO Last administered on 06/15/17 08:28; Admin Dose 400 UNITS; Start 06/08/17 at 09:00 Atorvastatin Calcium (Lipitor) 10 mg DAILY@21 PO Last administered on 21:31; Admin Dose 10 MG; Start 06/08/17 at 21:00 Ondansetron HCl (Zofran Inj) 4 mg Q6H PRN IV NAUSEA AND/OR VOMITING; Start at 04:00 Nitroglycerin (Nitroglycerin (Sl Tab) 0.4 Mg) 1 tab Q5M PRN SL CHEST PAIN; Start 06/08/17 at 04:00 Acetaminophen (Tylenol Tab) 650 mg Q6H PRN PO PAIN LEVEL 1-3 OR FEVER Last administered on 06/09/17 08:49; Admin Dose 650 MG; Start 06/08/17 at 04:00 Acetaminophen/ Hydrocodone Bitart ([place] (5/325)) 1 tab Q6H PRN PO PAIN LEVEL 4 -6 Last administered on 06/10/17 19:00; Admin Dose 1 TAB; Start 06/08/17 at 04: 00 Acetaminophen/ Hydrocodone Bitart ([place] (5/325)) 2 tab Q6H PRN PO PAIN LEVEL 7 -10 Last administered on 06/12/17 12:15; Admin Dose 2 TAB; Start 06/08/17 at 04 :00 Morphine Sulfate (morphine) 2 mg Q4H PRN IV PAIN LEVEL 7-10 Last administered on 06/08/17 19:58; Admin Dose 2 MG; Start 06/08/17 at 04:00 Docusate Sodium (Colace) 100 mg Q12H PRN PO CONSTIPATION; Start 06/08/17 at 04: 00 Magnesium Hydroxide (Milk Of Mag) 30 ml DAILY PRN PO CONSTIPATION; Start at 04:00 Bisacodyl (Dulcolax Supp) 10 mg DAILY PRN [place] CONSTIPATION; Start 06/08/17 at 04 :00 Heparin Sodium (Porcine) 5000 unit 5,000 unit Q8 SC Last administered on 13:38; Admin Dose 5,000 UNIT; Start 06/08/17 at 06:00 Meropenem/Sodium Chloride (Merrem 1 Gm/50 ml (Pmx)) 50 ml @ 100 mls/hr Q8 IVPB Last administered on 06/15/17 13:26; Admin Dose 100 MLS/HR; Start 06/08/17 at 06:00 Hydralazine HCl (Apresoline) 10 mg Q4H PRN IV ELEVATED SYSTOLIC BP Last administered on 06/15/17 00:27; Admin Dose 10 MG; Start 06/08/17 at 04:30 Diagnostic Test (Pha) 1 ea 1 ea 02 XX Last administered on 06/11/17 02:00; Admin Dose 1 EA; Start 06/09/17 at 02:00 Vancomycin HCl/ Sodium Chloride (Vancocin/NS) 250 ml @ 83.333 mls/ hr Q12H IVPB Last administered on 06/15/17 18:16; Admin Dose 83.333 MLS/HR; Start at 19:00 Povidone Iodine (Povidone-Iodine) 1 applic DAILY TOP Last administered on 08:28; Admin Dose 1 APPLIC; Start 06/08/17 at 09:00 Pantoprazole (Protonix Tab) 40 mg DAILY@06 PO Last administered on 06/15/17 06 :20; Admin Dose 40 MG; Start 06/09/17 at 06:00 Lorazepam (Ativan) 2 mg Q6H PRN IV AGITATION/ANXIETY Last administered on 19:35; Admin Dose 2 MG; Start 06/08/17 at 19:30 Spironolactone (Aldactone) 25 mg DAILY PO Last administered on 06/15/17 08:26 ; Admin Dose 25 MG; Start 06/11/17 at 13:00 Guaifenesin (Robitussin Liquid Cup) 300 mg Q4H PRN PO COUGH Last administered on 06/15/17 06:55; Admin Dose 300 MG; Start 06/14/17 at 01:00 Miscellaneous Information 1 ea NOTE XX ; Start 06/14/17 at 06:30 Glucose (Glutose) 15 gm Q15M PRN PO DECREASED GLUCOSE; Start 06/14/17 at 06:30 Glucose (Glutose) 22.5 gm Q15M PRN PO DECREASED GLUCOSE; Start 06/14/17 at 06: 30 Dextrose (D50w Syringe) 25 ml Q15M PRN IV DECREASED GLUCOSE; Start 06/14/17 at 06:30 Dextrose (D50w Syringe) 50 ml Q15M PRN IV DECREASED GLUCOSE; Start 06/14/17 at 06:30 Glucagon (Glucagen) 1 mg Q15M PRN IM DECREASED GLUCOSE; Start 06/14/17 at 06:30 Glucose (Glutose) 15 gm Q15M PRN BUCCAL DECREASED GLUCOSE; Start 06/14/17 at 06 :30 IV Flush (NS 10 ml) 10 ml PRN PRN IV IV PROTOCOL; Start 06/14/17 at 19:00 Carvedilol (Coreg) 12.5 mg Q12 PO ; Start 06/15/17 at 21:00 Procedures Procedures PROCEDURE: Nuclear medicine myocardial stress and rest scan. CLINICAL INDICATION: Chest pain. TECHNIQUE: The patient was stressed with 0.4 mg IV Lexiscan. 10 mCi technetium 99m Tetrofosmin (Myoview) was administered rest. 30 mCi technetium 99m Tetrofosmin (Myoview) was administered during stress. Images were obtained and reconstructed in the short axis, horizontal long axis, and vertical long axis. Gated images were obtained and ejection fraction was calculated. COMPARISON: No prior study is available for comparison. FINDINGS: The stress and rest images demonstrate normal uptake throughout. There is no fixed abnormality or reversible abnormality. There is no evidence of transient ischemic dilatation. Wall motion is normal. There is normal wall thickening during systole. Ejection fraction at stress is 60%. IMPRESSION: 1. No evidence of stress induced myocardial ischemia. 2. Ejection fraction at stress is 60%. RPTAT: QQ .Mo Hess MD, MD Date Time Electronically viewed and signed by .Mo Hess MD, on 06/15/2017 15:12 LORENA WATKINS Jun 15, 2017 18:36
[2017-06-15] MEDS: ATORVASTATIN 10 MG TAB PO SCH (21:05)
[2017-06-16] VITALS (12 sets, daily range): BP systolic 102–166; BP diastolic 55–84; PULSE 67–90; RESP 17–20
[2017-06-16] MEDS: ACCU-CHEK XX SCH (02:00)
[2017-06-16] MEDS: MEROPENEM 1 GM/50ML(PMX) 50 ML IVPB SCH ×2 (05:13→15:12)
[2017-06-16] MEDS: PANTOPRAZOLE (EC) 40 MG TAB PO SCH (05:13)
[2017-06-16] MEDS: FUROSEMIDE 40 MG TAB PO SCH ×2 (05:14→17:31)
[2017-06-16] MEDS: GUAIFENESIN 20 MG/ML 5ML CUP PO PRN ×2 (05:14→17:32)
[2017-06-16] MEDS: HEPARIN 5,000 UNIT/0.5 ML VIAL SC SCH ×3 (05:29→21:45)
[2017-06-16] MEDS: VANCOMYCIN 1.5 GM in SOD CHLORIDE 0.9% 250 ML IVPB SCH ×2 (07:07→20:01)
[2017-06-16 08:19] LABS: BASOPHIL # 0.1 10^3/ul (0.0-0.1); BASOPHILS % 1.4 % (0.0-2.0); EOSINOPHILS # 0.5 10^3/ul (0.0-0.5); EOSINOPHILS % 6.3 % (0.0-7.0); HEMATOCRIT 37.4 % (42.0-52.0); HEMOGLOBIN 12.3 g/dl (14.0-18.0); LYMPHOCYTES # 1.8 10^3/ul (0.8-2.9); LYMPHOCYTES % 21.7 % (15.0-51.0); MEAN CORPUSCULAR HEMOGLOBIN 26.5 pg (29.0-33.0); MEAN CORPUSCULAR HGB CONC 32.9 g/dl (32.0-37.0); MEAN CORPUSCULAR VOLUME 80.4 fl (82.0-101.0); MEAN PLATELET VOLUME 10.1 fl (7.4-10.4); MONOCYTE # 1.1 10^3/ul (0.3-0.9); NEUTROPHILS % 56.8 % (39.0-77.0); PLATELET COUNT 433 10^3/UL (140-415); RED BLOOD COUNT 4.65 10^6/ul (4.70-6.10); RED CELL DISTRIBUTION WIDTH 13.9 % (11.5-14.5); WHITE BLOOD COUNT 8.5 10^3/ul (4.8-10.8)
[2017-06-16] MEDS: MULTIVITAMINS THERAPEUTIC TAB PO SCH (08:34)
[2017-06-16] MEDS: metFORMIN 500 MG TAB PO SCH ×2 (08:34→17:32)
[2017-06-16] MEDS: LISINOPRIL 20 MG TAB PO SCH ×2 (08:34→20:35)
[2017-06-16] MEDS: LACTOBACILLUS RHAMNOSUS CAP PO SCH ×2 (08:35→20:34)
[2017-06-16] MEDS: SPIRONOLACTONE 25 MG TAB PO SCH (08:35)
[2017-06-16] MEDS: VITAMIN E 400 UNITS CAP PO SCH (08:35)
[2017-06-16] MEDS: VERAPAMIL (SR) 180 MG TAB PO SCH (08:35)
[2017-06-16] MEDS: ASPIRIN 81 MG TAB PO SCH (08:35)
[2017-06-16] MEDS: INSULIN ASPART [NOVOLOG] 3 ML PEN SC SCH ×4 (08:37→20:43)
[2017-06-16 08:40] LABS: MAGNESIUM 1.8 mg/dl (1.7-2.5); PHOSPHORUS 3.6 mg/dl (2.5-4.9)
[2017-06-16 08:46] LABS: CALCIUM 9.5 mg/dl (8.4-10.2); CREATININE 0.83 mg/dl (0.61-1.24); POTASSIUM 4.1 mmol/L (3.5-5.1)
--- NOTE | 2017-06-16 13:23 | CONS ---
Date/Time of Note Date/Time of Note DATE: 06/16/17 TIME: 13:22 Assessment/Plan Assessment/Plan Additional Assessment/Plan Acute decompensated diastolic congestive heart failure Preserved ejection fraction Diabetic foot ulcer Diabetes Hypertension Normal nuclear cardiac perfusion study 06/15/2017 -Patient status post nuclear cardiac perfusion study with no evidence of ischemia. Diuretics has been changed to p.o. Monitor renal function and blood pressure. Blood pressure trend improving. DC planning Consultation Date/Type/Reason Admit Date/Time Jun 08, 2017 at 05:27 Type of Consultation: cv 24 HR Interval Summary Free Text/Dictation Shortness of breath continues to improve. Cough is better. Denies chest pain or dizziness Exam/Review of Systems Vital Signs Vitals Vital Signs Date Time Temp Pulse Resp B/P Pulse Ox O2 Delivery O2 Flow Rate FiO2 06/16/17 12:00 75 06/16/17 11:30 98.3 18 102/55 97 06/15/17 07:40 Nasal Cannula 2.0 Intake and Output 06/15/17 06/15/17 06/16/17 15:00 23:00 07:00 Intake Total 300 ml 1350 ml 1250 ml Output Total 1900 ml 2000 ml Balance 300 ml -550 ml -750 ml Exam No apparent distress Constitutional: alert, oriented Head: normocephalic Respiratory: other (Coarse breath sounds bilaterally, no wheezing) Cardiovascular: other (S1-S2 heard), regular rate and rhythm Gastrointestinal: bowel sounds, non-tender, soft Extremities: edema Results Result Diagram: 06/16/17 0741 06/16/17 0741 Results 24 hrs Laboratory Tests Test 06/15/17 17:55 06/15/17 21:02 06/16/17 07:41 06/16/17 08:18 Bedside Glucose 216 134 152 White Blood Count 8.5 Red Blood Count 4.65 L Hemoglobin 12.3 L Hematocrit 37.4 L Mean Corpuscular Volume 80.4 L Mean Corpuscular Hemoglobin 26.5 L Mean Corpuscular Hemoglobin Concent 32.9 Red Cell Distribution Width 13.9 Platelet Count 433 H Mean Platelet Volume 10.1 Neutrophils % 56.8 Lymphocytes % 21.7 Monocytes % 13.0 H Eosinophils % 6.3 Basophils % 1.4 Nucleated Red Blood Cells % 0.0 Neutrophils # (Manual) 4.8 Lymphocytes # 1.8 Monocytes # 1.1 H Eosinophils # 0.5 Basophils # 0.1 Nucleated Red Blood Cells # 0.0 Sodium Level 143 Potassium Level 4.1 Chloride Level 101 Carbon Dioxide Level 27 Anion Gap 19 H Blood Urea Nitrogen 19 Creatinine 0.83 Glucose Level 168 Calcium Level 9.5 Phosphorus Level 3.6 Magnesium Level 1.8 Test 06/16/17 12:08 Bedside Glucose 174 Medications Medications Current Medications Aspirin (Aspirin) 81 mg DAILY PO Last administered on 06/16/17 08:35; Admin Dose 81 MG; Start 06/08/17 at 09:00 Lactobacillus Acidophilus/ Rhamnosus (Culturelle) 1 cap BID PO Last administered on 06/16/17 08:35; Admin Dose 1 CAP; Start 06/08/17 at 09:00 Lisinopril (Zestril) 40 mg BID PO Last administered on 06/16/17 08:34; Admin Dose 40 MG; Start 06/08/17 at 09:00 Multivitamins Therapeutic (Theragran) 1 tab DAILY PO Last administered on 08:34; Admin Dose 1 TAB; Start 06/08/17 at 09:00 Verapamil HCl (Isoptin Sr) 360 mg DAILY PO Last administered on 06/16/17 08:35 ; Admin Dose 360 MG; Start 06/08/17 at 09:00 Vitamin E (Vitamin E) 400 units DAILY PO Last administered on 06/16/17 08:35; Admin Dose 400 UNITS; Start 06/08/17 at 09:00 Atorvastatin Calcium (Lipitor) 10 mg DAILY@21 PO Last administered on 21:05; Admin Dose 10 MG; Start 06/08/17 at 21:00 Ondansetron HCl (Zofran Inj) 4 mg Q6H PRN IV NAUSEA AND/OR VOMITING; Start at 04:00 Nitroglycerin (Nitroglycerin (Sl Tab) 0.4 Mg) 1 tab Q5M PRN SL CHEST PAIN; Start 06/08/17 at 04:00 Acetaminophen (Tylenol Tab) 650 mg Q6H PRN PO PAIN LEVEL 1-3 OR FEVER Last administered on 06/09/17 08:49; Admin Dose 650 MG; Start 06/08/17 at 04:00 Acetaminophen/ Hydrocodone Bitart ([place] (5/325)) 1 tab Q6H PRN PO PAIN LEVEL 4 -6 Last administered on 06/10/17 19:00; Admin Dose 1 TAB; Start 06/08/17 at 04: 00 Acetaminophen/ Hydrocodone Bitart ([place] (5/325)) 2 tab Q6H PRN PO PAIN LEVEL 7 -10 Last administered on 06/12/17 12:15; Admin Dose 2 TAB; Start 06/08/17 at 04 :00 Morphine Sulfate (morphine) 2 mg Q4H PRN IV PAIN LEVEL 7-10 Last administered on 06/08/17 19:58; Admin Dose 2 MG; Start 06/08/17 at 04:00 Docusate Sodium (Colace) 100 mg Q12H PRN PO CONSTIPATION; Start 06/08/17 at 04: 00 Magnesium Hydroxide (Milk Of Mag) 30 ml DAILY PRN PO CONSTIPATION; Start at 04:00 Bisacodyl (Dulcolax Supp) 10 mg DAILY PRN [place] CONSTIPATION; Start 06/08/17 at 04 :00 Heparin Sodium (Porcine) 5000 unit 5,000 unit Q8 SC Last administered on 05:29; Admin Dose 5,000 UNIT; Start 06/08/17 at 06:00 Meropenem/Sodium Chloride (Merrem 1 Gm/50 ml (Pmx)) 50 ml @ 100 mls/hr Q8 IVPB Last administered on 06/16/17 05:13; Admin Dose 100 MLS/HR; Start 06/08/17 at 06:00 Hydralazine HCl (Apresoline) 10 mg Q4H PRN IV ELEVATED SYSTOLIC BP Last administered on 06/15/17 00:27; Admin Dose 10 MG; Start 06/08/17 at 04:30 Diagnostic Test (Pha) 1 ea 1 ea 02 XX Last administered on 06/11/17 02:00; Admin Dose 1 EA; Start 06/09/17 at 02:00 Vancomycin HCl/ Sodium Chloride (Vancocin/NS) 250 ml @ 83.333 mls/ hr Q12H IVPB Last administered on 06/16/17 07:07; Admin Dose 83.333 MLS/HR; Start at 19:00 Povidone Iodine (Povidone-Iodine) 1 applic DAILY TOP Last administered on 08:28; Admin Dose 1 APPLIC; Start 06/08/17 at 09:00 Pantoprazole (Protonix Tab) 40 mg DAILY@06 PO Last administered on 06/16/17 05 :13; Admin Dose 40 MG; Start 06/09/17 at 06:00 Lorazepam (Ativan) 2 mg Q6H PRN IV AGITATION/ANXIETY Last administered on 19:35; Admin Dose 2 MG; Start 06/08/17 at 19:30 Spironolactone (Aldactone) 25 mg DAILY PO Last administered on 06/16/17 08:35 ; Admin Dose 25 MG; Start 06/11/17 at 13:00 Guaifenesin (Robitussin Liquid Cup) 300 mg Q4H PRN PO COUGH Last administered on 06/16/17 05:14; Admin Dose 300 MG; Start 06/14/17 at 01:00 Miscellaneous Information 1 ea NOTE XX ; Start 06/14/17 at 06:30 Glucose (Glutose) 15 gm Q15M PRN PO DECREASED GLUCOSE; Start 06/14/17 at 06:30 Glucose (Glutose) 22.5 gm Q15M PRN PO DECREASED GLUCOSE; Start 06/14/17 at 06: 30 Dextrose (D50w Syringe) 25 ml Q15M PRN IV DECREASED GLUCOSE; Start 06/14/17 at 06:30 Dextrose (D50w Syringe) 50 ml Q15M PRN IV DECREASED GLUCOSE; Start 06/14/17 at 06:30 Glucagon (Glucagen) 1 mg Q15M PRN IM DECREASED GLUCOSE; Start 06/14/17 at 06:30 Glucose (Glutose) 15 gm Q15M PRN BUCCAL DECREASED GLUCOSE; Start 06/14/17 at 06 :30 IV Flush (NS 10 ml) 10 ml PRN PRN IV IV PROTOCOL; Start 06/14/17 at 19:00 Carvedilol (Coreg) 12.5 mg Q12 PO Last administered on 06/16/17 08:36; Admin Dose 12.5 MG; Start 06/15/17 at 21:00 Yobany Schaffer DO Jun 16, 2017 13:23
--- NOTE | 2017-06-16 15:01 | EN ---
Date/Time of Note Date/Time of Note DATE: 06/16/17 TIME: 14:59 Event Note Cardiology Cardiology Event Note Lexiscan nuclear cardiac perfusion report Date of procedure 06/15/2017 This is a 56-year-old male presents with recurrent decompensated congestive heart failure Baseline heart rate 73, based on blood pressure 154/82, peak blood pressure 154/ 82 Baseline ECG sinus rhythm at 73 bpm, nonspecific ST abnormalities Lexiscan administered as per protocol Symptoms of shortness of breath which resolved ECG with T-wave inversions and 0.[address] depressions No significant arrhythmias seen ECG interpretation is nonischemic The nuclear portion was interpreted by our radiology colleagues Yobany Schaffer DO Jun 16, 2017 15:01
[2017-06-16] MEDS: POVIDONE IODINE 10% 28.4 GM OINT TOP SCH (15:13)
--- NOTE | 2017-06-16 15:27 | PN ---
Date/Time of Note Date/Time of Note DATE: 06/16/17 TIME: 15:19 Assessment/Plan VTE Prophylaxis VTE Prophylaxis Intervention: heparin Lines/Catheters IV Catheter Type (from Nrs): PICC Line Central line still needed: Yes (for outpatient IV antibiotics, IV access) Urinary Cath still in place: No Assessment/Plan Assessment/Plan 56 yo male with: 1. Acute respiratory failure, status post BiPAP on the first few days of admission, patient better currently, between nasal cannula 2 L and room air. CTA chest with pulmonary edema, ongoing CHF exacerbation also seems like patient has a right middle lobe pneumonia on chest x-ray and possible episodes of bronchospasms Appreciate recommendations from cardiology and pulmonary Patient much improved, on room air the past 3 days now Ambulating on room air. Stress test negative Repeat chest x-ray still pending On Lasix changed to p.o. as of today. Blood cx back with 1/2 coagulase-negative Staphylococcus, likely contaminant, repeat blood cultures negative, new PICC line in place BP much better controlled. 2. Hypertension, uncontrolled on admission, better controlled BP now Titrate and add medications as needed for blood pressure. Continue diuresis with Lasix po and Aldactone. 3. ? Pneumonia, possibly healthcare associated versus community-acquired, patient has been on vancomycin as an outpatient already, reviewing imaging, actually unlikely patient had pneumonia, most likely all infiltrates seen were secondary to pulmonary edema. D/c Meropenem and resume Levaquin po. Repeat blood cultures NGTD. New PICC line in place. On room air 4. Right Diabetic foot infection, previous MRI consistent with osteomyelitis of second toe, myositis and also tenosynovitis, On his last admission the recommendation was for patient to remain on long-term IV antibiotics as patient not keen on surgical amputation. New PICC line placed. He is to complete a 6-week course of antibiotics per infectious disease and podiatry. 5. Diabetes mellitus: A1c of 6.1, continue outpatient regimen at that time including metformin for now. Sliding scale insulin and diabetic diet. 6. Hyperlipidemia : Continue statin therapy. Prophylaxis : Lovenox for DVT prophylaxis, Pepcid for GI prophylaxis. Disposition : Patient currently on telemetry, stable, on p.o. diuretics now, follow-up chest x-ray today D/c plan home with home health for IV antibiotics on Tuesday Subjective 24 Hr Interval Summary Free Text/Dictation Patient doing well, he is on room air, he is lying flat currently with no respiratory distress, blood pressure is controlled. He is now on oral Lasix, will switch antibiotics from meropenem to oral Levaquin. Repeat chest x-ray pending today. Discharge planning for tomorrow Tuesday. Exam/Review of Systems Vital Signs Vitals Vital Signs Date Time Temp Pulse Resp B/P Pulse Ox O2 Delivery O2 Flow Rate FiO2 06/16/17 12:00 75 06/16/17 11:30 98.3 18 102/55 97 06/15/17 07:40 Nasal Cannula 2.0 Intake and Output 06/15/17 06/15/17 06/16/17 15:00 23:00 07:00 Intake Total 300 ml 1350 ml 1250 ml Output Total 1900 ml 2000 ml Balance 300 ml -550 ml -750 ml Exam Constitutional: alert, oriented, well developed Respiratory: clear to auscultation, normal air movement Cardiovascular: nl pulses, regular rate and rhythm Gastrointestinal: non-tender, soft Musculoskeletal: nl gait and stance, other (Ulcerated toes with Betadine on it) Extremities: normal pulses, other (No edema, clubbing or cyanosis) Neurological: DRAPERY HEMMER AUTOMATIC II-XII intact, nl mental status, nl speech, nl strength Results Result Diagram: 06/16/1774006/16/17 0741 Results 24 hrs Laboratory Tests Test 06/15/17 17:55 06/15/17 21:02 06/16/17 07:41 06/16/17 08:18 Bedside Glucose 216 134 152 White Blood Count 8.5 Red Blood Count 4.65 L Hemoglobin 12.3 L Hematocrit 37.4 L Mean Corpuscular Volume 80.4 L Mean Corpuscular Hemoglobin 26.5 L Mean Corpuscular Hemoglobin Concent 32.9 Red Cell Distribution Width 13.9 Platelet Count 433 H Mean Platelet Volume 10.1 Neutrophils % 56.8 Lymphocytes % 21.7 Monocytes % 13.0 H Eosinophils % 6.3 Basophils % 1.4 Nucleated Red Blood Cells % 0.0 Neutrophils # (Manual) 4.8 Lymphocytes # 1.8 Monocytes # 1.1 H Eosinophils # 0.5 Basophils # 0.1 Nucleated Red Blood Cells # 0.0 Sodium Level 143 Potassium Level 4.1 Chloride Level 101 Carbon Dioxide Level 27 Anion Gap 19 H Blood Urea Nitrogen 19 Creatinine 0.83 Glucose Level 168 Calcium Level 9.5 Phosphorus Level 3.6 Magnesium Level 1.8 Test 06/16/17 12:08 Bedside Glucose 174 Medications Medications Current Medications Aspirin (Aspirin) 81 mg DAILY PO Last administered on 06/16/17 08:35; Admin Dose 81 MG; Start 06/08/17 at 09:00 Lactobacillus Acidophilus/ Rhamnosus (Culturelle) 1 cap BID PO Last administered on 06/16/17 08:35; Admin Dose 1 CAP; Start 06/08/17 at 09:00 Lisinopril (Zestril) 40 mg BID PO Last administered on 06/16/17 08:34; Admin Dose 40 MG; Start 06/08/17 at 09:00 Multivitamins Therapeutic (Theragran) 1 tab DAILY PO Last administered on 08:34; Admin Dose 1 TAB; Start 06/08/17 at 09:00 Verapamil HCl (Isoptin Sr) 360 mg DAILY PO Last administered on 06/16/17 08:35 ; Admin Dose 360 MG; Start 06/08/17 at 09:00 Vitamin E (Vitamin E) 400 units DAILY PO Last administered on 06/16/17 08:35; Admin Dose 400 UNITS; Start 06/08/17 at 09:00 Atorvastatin Calcium (Lipitor) 10 mg DAILY@21 PO Last administered on 21:05; Admin Dose 10 MG; Start 06/08/17 at 21:00 Ondansetron HCl (Zofran Inj) 4 mg Q6H PRN IV NAUSEA AND/OR VOMITING; Start at 04:00 Nitroglycerin (Nitroglycerin (Sl Tab) 0.4 Mg) 1 tab Q5M PRN SL CHEST PAIN; Start 06/08/17 at 04:00 Acetaminophen (Tylenol Tab) 650 mg Q6H PRN PO PAIN LEVEL 1-3 OR FEVER Last administered on 06/09/17 08:49; Admin Dose 650 MG; Start 06/08/17 at 04:00 Acetaminophen/ Hydrocodone Bitart ([place] (5/325)) 1 tab Q6H PRN PO PAIN LEVEL 4 -6 Last administered on 06/10/17 19:00; Admin Dose 1 TAB; Start 06/08/17 at 04: 00 Acetaminophen/ Hydrocodone Bitart ([place] (5/325)) 2 tab Q6H PRN PO PAIN LEVEL 7 -10 Last administered on 06/12/17 12:15; Admin Dose 2 TAB; Start 06/08/17 at 04 :00 Morphine Sulfate (morphine) 2 mg Q4H PRN IV PAIN LEVEL 7-10 Last administered on 06/08/17 19:58; Admin Dose 2 MG; Start 06/08/17 at 04:00 Docusate Sodium (Colace) 100 mg Q12H PRN PO CONSTIPATION; Start 06/08/17 at 04: 00 Magnesium Hydroxide (Milk Of Mag) 30 ml DAILY PRN PO CONSTIPATION; Start at 04:00 Bisacodyl (Dulcolax Supp) 10 mg DAILY PRN [place] CONSTIPATION; Start 06/08/17 at 04 :00 Heparin Sodium (Porcine) (Heparin (5000 Units/0.5 ml)) 5,000 unit Q8 SC Last administered on 06/16/17 15:11; Admin Dose 5,000 UNIT; Start 06/08/17 at 06:00 Hydralazine HCl (Apresoline) 10 mg Q4H PRN IV ELEVATED SYSTOLIC BP Last administered on 06/15/17 00:27; Admin Dose 10 MG; Start 06/08/17 at 04:30 Diagnostic Test (Pha) 1 ea 1 ea 02 XX Last administered on 06/11/17 02:00; Admin Dose 1 EA; Start 06/09/17 at 02:00 Vancomycin HCl/ Sodium Chloride (Vancocin/NS) 250 ml @ 83.333 mls/ hr Q12H IVPB Last administered on 06/16/17 07:07; Admin Dose 83.333 MLS/HR; Start at 19:00 Povidone Iodine (Povidone-Iodine) 1 applic DAILY TOP Last administered on 15:13; Admin Dose 1 APPLIC; Start 06/08/17 at 09:00 Pantoprazole (Protonix Tab) 40 mg DAILY@06 PO Last administered on 06/16/17 05 :13; Admin Dose 40 MG; Start 06/09/17 at 06:00 Lorazepam (Ativan) 2 mg Q6H PRN IV AGITATION/ANXIETY Last administered on 19:35; Admin Dose 2 MG; Start 06/08/17 at 19:30 Spironolactone (Aldactone) 25 mg DAILY PO Last administered on 06/16/17 08:35 ; Admin Dose 25 MG; Start 06/11/17 at 13:00 Guaifenesin (Robitussin Liquid Cup) 300 mg Q4H PRN PO COUGH Last administered on 06/16/17 05:14; Admin Dose 300 MG; Start 06/14/17 at 01:00 Miscellaneous Information 1 ea NOTE XX ; Start 06/14/17 at 06:30 Glucose (Glutose) 15 gm Q15M PRN PO DECREASED GLUCOSE; Start 06/14/17 at 06:30 Glucose (Glutose) 22.5 gm Q15M PRN PO DECREASED GLUCOSE; Start 06/14/17 at 06: 30 Dextrose (D50w Syringe) 25 ml Q15M PRN IV DECREASED GLUCOSE; Start 06/14/17 at 06:30 Dextrose (D50w Syringe) 50 ml Q15M PRN IV DECREASED GLUCOSE; Start 06/14/17 at 06:30 Glucagon (Glucagen) 1 mg Q15M PRN IM DECREASED GLUCOSE; Start 06/14/17 at 06:30 Glucose (Glutose) 15 gm Q15M PRN BUCCAL DECREASED GLUCOSE; Start 06/14/17 at 06 :30 IV Flush (NS 10 ml) 10 ml PRN PRN IV IV PROTOCOL; Start 06/14/17 at 19:00 Carvedilol 12.5 mg 12.5 mg Q12 PO Last administered on 06/16/17 08:36; Admin Dose 12.5 MG; Start 06/15/17 at 21:00 Magnesium Sulfate (Magnesium Sulfate 2 Gm/50 ml) 50 ml @ 25 mls/hr ONCE ONCE IVPB ; Start 06/16/17 at 15:30; Stop 06/16/17 at 17:29; Status UNV Levofloxacin (Levaquin) 750 mg DAILY PO ; Start 06/16/17 at 15:30; Status UNV LORENA WATKINS Jun 16, 2017 15:27
[2017-06-16] MEDS ORDERED: MAGNESIUM SULFATE 2 GM/50 ML 50 ML IVPB ONE (15:30)
[2017-06-16] MEDS: LEVOFLOXACIN 750 MG TABLET PO SCH (18:40)
[2017-06-16] MEDS: ATORVASTATIN 10 MG TAB PO SCH (20:34)
[2017-06-17] VITALS (10 sets, daily range): BP systolic 111–152; BP diastolic 62–78; PULSE 65–74; RESP 20
[2017-06-17] MEDS: ACCU-CHEK XX SCH (02:00)
[2017-06-17] MEDS: PANTOPRAZOLE (EC) 40 MG TAB PO SCH (05:39)
[2017-06-17] MEDS: FUROSEMIDE 40 MG TAB PO SCH (05:41)
[2017-06-17] MEDS: HEPARIN 5,000 UNIT/0.5 ML VIAL SC SCH ×2 (05:54→13:12)
[2017-06-17] MEDS: VANCOMYCIN 1.5 GM in SOD CHLORIDE 0.9% 250 ML IVPB SCH (08:01)
[2017-06-17] MEDS: SPIRONOLACTONE 25 MG TAB PO SCH (08:13)
[2017-06-17] MEDS: ASPIRIN 81 MG TAB PO SCH (08:15)
[2017-06-17] MEDS: LISINOPRIL 20 MG TAB PO SCH (08:15)
[2017-06-17] MEDS: VERAPAMIL (SR) 180 MG TAB PO SCH (08:16)
[2017-06-17] MEDS: metFORMIN 500 MG TAB PO SCH (08:16)
[2017-06-17] MEDS: LEVOFLOXACIN 750 MG TABLET PO SCH (08:16)
[2017-06-17] MEDS: LACTOBACILLUS RHAMNOSUS CAP PO SCH (08:16)
[2017-06-17] MEDS: VITAMIN E 400 UNITS CAP PO SCH (08:16)
[2017-06-17] MEDS: MULTIVITAMINS THERAPEUTIC TAB PO SCH (08:16)
[2017-06-17] MEDS: POVIDONE IODINE 10% 28.4 GM OINT TOP SCH (08:17)
[2017-06-17] MEDS: GUAIFENESIN 20 MG/ML 5ML CUP PO PRN (08:17)
[2017-06-17] MEDS: INSULIN ASPART [NOVOLOG] 3 ML PEN SC SCH ×3 (08:30→17:55)
--- NOTE | 2017-06-17 11:27 | RADRPT ---
PROCEDURE: XR Chest. CLINICAL INDICATION: Chest pain TECHNIQUE: PA and Lateral views of the chest were obtained. COMPARISON: June 14, 2017, June 13, 2017, June 09, 2017 FINDINGS: The left PICC line remains in good positioning. There is further radiographic improvement in fluid status. There is a trace left pleural effusion. The heart size is stable. The osseous structures are unremarkable. IMPRESSION: Left PICC line in good positioning. Further radiographic improvement in fluid status. Trace left p leural effusion. RPTAT: EE .Yee Tejeda MD, MD Date Time Electronically viewed and signed by .Yee Tejeda MD, on 06/17/2017 11:27 .F/
--- NOTE | 2017-06-17 13:00 | CONS ---
Date/Time of Note Date/Time of Note DATE: 06/17/17 TIME: 12:59 Assessment/Plan Assessment/Plan Additional Assessment/Plan Acute decompensated diastolic congestive heart failure Preserved ejection fraction Diabetic foot ulcer Diabetes Hypertension Normal nuclear cardiac perfusion study 06/15/2017 -Patient status post nuclear cardiac perfusion study with no evidence of ischemia. Diuretics has been changed to p.o. Monitor renal function and blood pressure. Blood pressure trend improving. DC planning Consultation Date/Type/Reason Admit Date/Time Jun 08, 2017 at 05:27 Type of Consultation: cv 24 HR Interval Summary Free Text/Dictation Denies shortness of breath, cough, palpitations Exam/Review of Systems Vital Signs Vitals Vital Signs Date Time Temp Pulse Resp B/P Pulse Ox O2 Delivery O2 Flow Rate FiO2 06/17/17 12:16 67 06/17/17 11:59 98.2 20 113/78 98 06/15/17 07:40 Nasal Cannula 2.0 Intake and Output 06/16/17 06/16/17 06/17/17 15:00 23:00 07:00 Intake Total 1550 ml 1000 ml Output Total 1600 ml Balance 1550 ml -600 ml Exam No apparent distress Constitutional: alert, oriented Head: normocephalic Respiratory: other (Coarse breath sounds bilaterally, no wheezing) Cardiovascular: other (S1-S2 heard), regular rate and rhythm Gastrointestinal: bowel sounds, non-tender, soft Extremities: edema Results Result Diagram: 06/16/17 0741 06/16/17 0741 Results 24 hrs Laboratory Tests Test 06/16/17 17:21 06/16/17 20:42 06/17/17 08:04 06/17/17 12:35 Bedside Glucose 122 119 164 126 Medications Medications Current Medications Aspirin (Aspirin) 81 mg DAILY PO Last administered on 06/17/17 08:15; Admin Dose 81 MG; Start 06/08/17 at 09:00 Lactobacillus Acidophilus/ Rhamnosus (Culturelle) 1 cap BID PO Last administered on 06/17/17 08:16; Admin Dose 1 CAP; Start 06/08/17 at 09:00 Lisinopril (Zestril) 40 mg BID PO Last administered on 06/17/17 08:15; Admin Dose 40 MG; Start 06/08/17 at 09:00 Multivitamins Therapeutic (Theragran) 1 tab DAILY PO Last administered on 08:16; Admin Dose 1 TAB; Start 06/08/17 at 09:00 Verapamil HCl (Isoptin Sr) 360 mg DAILY PO Last administered on 06/17/17 08:16 ; Admin Dose 360 MG; Start 06/08/17 at 09:00 Vitamin E (Vitamin E) 400 units DAILY PO Last administered on 06/17/17 08:16; Admin Dose 400 UNITS; Start 06/08/17 at 09:00 Atorvastatin Calcium (Lipitor) 10 mg DAILY@21 PO Last administered on 20:34; Admin Dose 10 MG; Start 06/08/17 at 21:00 Ondansetron HCl (Zofran Inj) 4 mg Q6H PRN IV NAUSEA AND/OR VOMITING; Start at 04:00 Nitroglycerin (Nitroglycerin (Sl Tab) 0.4 Mg) 1 tab Q5M PRN SL CHEST PAIN; Start 06/08/17 at 04:00 Acetaminophen (Tylenol Tab) 650 mg Q6H PRN PO PAIN LEVEL 1-3 OR FEVER Last administered on 06/09/17 08:49; Admin Dose 650 MG; Start 06/08/17 at 04:00 Acetaminophen/ Hydrocodone Bitart ([place] (5/325)) 1 tab Q6H PRN PO PAIN LEVEL 4 -6 Last administered on 06/10/17 19:00; Admin Dose 1 TAB; Start 06/08/17 at 04: 00 Acetaminophen/ Hydrocodone Bitart ([place] (5/325)) 2 tab Q6H PRN PO PAIN LEVEL 7 -10 Last administered on 06/12/17 12:15; Admin Dose 2 TAB; Start 06/08/17 at 04 :00 Morphine Sulfate (morphine) 2 mg Q4H PRN IV PAIN LEVEL 7-10 Last administered on 06/08/17 19:58; Admin Dose 2 MG; Start 06/08/17 at 04:00 Docusate Sodium (Colace) 100 mg Q12H PRN PO CONSTIPATION; Start 06/08/17 at 04: 00 Magnesium Hydroxide (Milk Of Mag) 30 ml DAILY PRN PO CONSTIPATION; Start at 04:00 Bisacodyl (Dulcolax Supp) 10 mg DAILY PRN [place] CONSTIPATION; Start 06/08/17 at 04 :00 Heparin Sodium (Porcine) (Heparin (5000 Units/0.5 ml)) 5,000 unit Q8 SC Last administered on 06/17/17 05:54; Admin Dose 5,000 UNIT; Start 06/08/17 at 06:00 Hydralazine HCl (Apresoline) 10 mg Q4H PRN IV ELEVATED SYSTOLIC BP Last administered on 06/15/17 00:27; Admin Dose 10 MG; Start 06/08/17 at 04:30 Diagnostic Test (Pha) 1 ea 1 ea 02 XX Last administered on 06/11/17 02:00; Admin Dose 1 EA; Start 06/09/17 at 02:00 Vancomycin HCl/ Sodium Chloride (Vancocin/NS) 250 ml @ 83.333 mls/ hr Q12H IVPB Last administered on 06/17/17 08:01; Admin Dose 83.333 MLS/HR; Start 06/08 at 19:00 Povidone Iodine (Povidone-Iodine) 1 applic DAILY TOP Last administered on 08:17; Admin Dose 1 APPLIC; Start 06/08/17 at 09:00 Pantoprazole (Protonix Tab) 40 mg DAILY@06 PO Last administered on 06/17/17 05: 39; Admin Dose 40 MG; Start 06/09/17 at 06:00 Lorazepam (Ativan) 2 mg Q6H PRN IV AGITATION/ANXIETY Last administered on 19:35; Admin Dose 2 MG; Start 06/08/17 at 19:30 Spironolactone (Aldactone) 25 mg DAILY PO Last administered on 06/17/17 08:13; Admin Dose 25 MG; Start 06/11/17 at 13:00 Guaifenesin (Robitussin Liquid Cup) 300 mg Q4H PRN PO COUGH Last administered on 06/17/17 08:17; Admin Dose 300 MG; Start 06/14/17 at 01:00 Miscellaneous Information 1 ea NOTE XX ; Start 06/14/17 at 06:30 Glucose (Glutose) 15 gm Q15M PRN PO DECREASED GLUCOSE; Start 06/14/17 at 06:30 Glucose (Glutose) 22.5 gm Q15M PRN PO DECREASED GLUCOSE; Start 06/14/17 at 06: 30 Dextrose (D50w Syringe) 25 ml Q15M PRN IV DECREASED GLUCOSE; Start 06/14/17 at 06:30 Dextrose (D50w Syringe) 50 ml Q15M PRN IV DECREASED GLUCOSE; Start 06/14/17 at 06:30 Glucagon (Glucagen) 1 mg Q15M PRN IM DECREASED GLUCOSE; Start 06/14/17 at 06:30 Glucose (Glutose) 15 gm Q15M PRN BUCCAL DECREASED GLUCOSE; Start 06/14/17 at 06 :30 IV Flush (NS 10 ml) 10 ml PRN PRN IV IV PROTOCOL; Start 06/14/17 at 19:00 Carvedilol (Coreg) 12.5 mg Q12 PO Last administered on 06/17/17 08:15; Admin Dose 12.5 MG; Start 06/15/17 at 21:00 Levofloxacin (Levaquin) 750 mg DAILY PO Last administered on 06/17/17 08:16; Admin Dose 750 MG; Start 06/16/17 at 15:30 Furosemide (Lasix) 40 mg DAILY@06 PO ; Start 06/18/17 at 06:00 Yobany Schaffer DO Jun 17, 2017 13:00
--- NOTE | 2017-06-17 13:17 | CONS ---
Date/Time of Note Date/Time of Note DATE: 06/17/17 TIME: 13:15 Assessment/Plan Assessment/Plan Additional Assessment/Plan CXR was reviewed from today which is showing minimal left costophrenic angle blunting.. Mild cardiomegaly is present. Assessment recommendations; 1. Patient admitted with CHF exacerbation with marked overall clinical improvement. 2. Coagulase negative staph aureus bacteremia likely skin contaminant. 3. History of hypertension, diabetes and CHF. Next Continue current treatment. Consider discharge. Consultation Date/Type/Reason Admit Date/Time Jun 08, 2017 at 05:27 Initial Consult Date Type of Consultation: Pulmonary 24 HR Interval Summary Free Text/Dictation Patient condition is markedly improved. He denies any shortness of breath. Patient has been ambulating in the hallway. Denies any chest pain, wheezing, cough or sputum production. General exam; middle-aged male, awake alert currently in no distress. Exam/Review of Systems Vital Signs Vitals Vital Signs Date Time Temp Pulse Resp B/P Pulse Ox O2 Delivery O2 Flow Rate FiO2 06/17/17 12:16 67 06/17/17 11:59 98.2 20 113/78 98 06/15/17 07:40 Nasal Cannula 2.0 Intake and Output 06/16/17 06/16/17 06/17/17 15:00 23:00 07:00 Intake Total 1550 ml 1000 ml Output Total 1600 ml Balance 1550 ml -600 ml Exam HEENT exam; supple neck, no JVD. No lymphadenopathy. Midline trachea. No thyromegaly. Pharynx is clear. Patient has fair dentition. Pupils are small bilaterally. Chest exam; clear to auscultation. S1-S2 audible, no murmurs. Regular rhythm. Abdomen exam; soft, nontender. No organomegaly. Bowel sounds audible. Extremity exam; no peripheral edema. Pulses 2+ bilaterally. ELDERLY SITTER exam; no focal deficit. Results Result Diagram: 06/16/17 0741 06/16/17 0741 Results 24 hrs Laboratory Tests Test 06/16/17 17:21 06/16/17 20:42 06/17/17 08:04 06/17/17 12:35 Bedside Glucose 122 119 164 126 Medications Medications Current Medications Aspirin (Aspirin) 81 mg DAILY PO Last administered on 06/17/17t 08:15; Admin Dose 81 MG; Start 06/08/17 at 09:00 Lactobacillus Acidophilus/ Rhamnosus (Culturelle) 1 cap BID PO Last administered on 06/17/17 08:16; Admin Dose 1 CAP; Start 06/08/17 at 09:00 Lisinopril (Zestril) 40 mg BID PO Last administered on 06/17/17 08:15; Admin Dose 40 MG; Start 06/08/17 at 09:00 Multivitamins Therapeutic (Theragran) 1 tab DAILY PO Last administered on 08:16; Admin Dose 1 TAB; Start 06/08/17 at 09:00 Verapamil HCl (Isoptin Sr) 360 mg DAILY PO Last administered on 06/17/17 08:16 ; Admin Dose 360 MG; Start 06/08/17 at 09:00 Vitamin E (Vitamin E) 400 units DAILY PO Last administered on 06/17/17 08:16; Admin Dose 400 UNITS; Start 06/08/17 at 09:00 Atorvastatin Calcium (Lipitor) 10 mg DAILY@21 PO Last administered on 20:34; Admin Dose 10 MG; Start 06/08/17 at 21:00 Ondansetron HCl (Zofran Inj) 4 mg Q6H PRN IV NAUSEA AND/OR VOMITING; Start at 04:00 Nitroglycerin (Nitroglycerin (Sl Tab) 0.4 Mg) 1 tab Q5M PRN SL CHEST PAIN; Start 06/08/17 at 04:00 Acetaminophen (Tylenol Tab) 650 mg Q6H PRN PO PAIN LEVEL 1-3 OR FEVER Last administered on 06/09/17 08:49; Admin Dose 650 MG; Start 06/08/17 at 04:00 Acetaminophen/ Hydrocodone Bitart ([place] (5/325)) 1 tab Q6H PRN PO PAIN LEVEL 4 -6 Last administered on 06/10/17 19:00; Admin Dose 1 TAB; Start 06/08/17 at 04: 00 Acetaminophen/ Hydrocodone Bitart ([place] (5/325)) 2 tab Q6H PRN PO PAIN LEVEL 7 -10 Last administered on 06/12/17 12:15; Admin Dose 2 TAB; Start 06/08/17 at 04 :00 Morphine Sulfate (morphine) 2 mg Q4H PRN IV PAIN LEVEL 7-10 Last administered on 06/08/17 19:58; Admin Dose 2 MG; Start 06/08/17 at 04:00 Docusate Sodium (Colace) 100 mg Q12H PRN PO CONSTIPATION; Start 06/08/17 at 04: 00 Magnesium Hydroxide (Milk Of Mag) 30 ml DAILY PRN PO CONSTIPATION; Start at 04:00 Bisacodyl (Dulcolax Supp) 10 mg DAILY PRN [place] CONSTIPATION; Start 06/08/17 at 04 :00 Heparin Sodium (Porcine) (Heparin (5000 Units/0.5 ml)) 5,000 unit Q8 SC Last administered on 06/17/17 13:12; Admin Dose 5,000 UNIT; Start 06/08/17 at 06:00 Hydralazine HCl (Apresoline) 10 mg Q4H PRN IV ELEVATED SYSTOLIC BP Last administered on 06/15/17 00:27; Admin Dose 10 MG; Start 06/08/17 at 04:30 Diagnostic Test (Pha) 1 ea 1 ea 02 XX Last administered on 06/11/17 02:00; Admin Dose 1 EA; Start 06/09/17 at 02:00 Vancomycin HCl/ Sodium Chloride (Vancocin/NS) 250 ml @ 83.333 mls/ hr Q12H IVPB Last administered on 06/17/17 08:01; Admin Dose 83.333 MLS/HR; Start 06/08 at 19:00 Povidone Iodine (Povidone-Iodine) 1 applic DAILY TOP Last administered on 08:17; Admin Dose 1 APPLIC; Start 06/08/17 at 09:00 Pantoprazole (Protonix Tab) 40 mg DAILY@06 PO Last administered on 06/17/17 05: 39; Admin Dose 40 MG; Start 06/09/17 at 06:00 Lorazepam (Ativan) 2 mg Q6H PRN IV AGITATION/ANXIETY Last administered on 19:35; Admin Dose 2 MG; Start 06/08/17 at 19:30 Spironolactone (Aldactone) 25 mg DAILY PO Last administered on 06/17/17 08:13; Admin Dose 25 MG; Start 06/11/17 at 13:00 Guaifenesin (Robitussin Liquid Cup) 300 mg Q4H PRN PO COUGH Last administered on 06/17/17 08:17; Admin Dose 300 MG; Start 06/14/17 at 01:00 Miscellaneous Information 1 ea NOTE XX ; Start 06/14/17 at 06:30 Glucose (Glutose) 15 gm Q15M PRN PO DECREASED GLUCOSE; Start 06/14/17 at 06:30 Glucose (Glutose) 22.5 gm Q15M PRN PO DECREASED GLUCOSE; Start 06/14/17 at 06: 30 Dextrose (D50w Syringe) 25 ml Q15M PRN IV DECREASED GLUCOSE; Start 06/14/17 at 06:30 Dextrose (D50w Syringe) 50 ml Q15M PRN IV DECREASED GLUCOSE; Start 06/14/17 at 06:30 Glucagon (Glucagen) 1 mg Q15M PRN IM DECREASED GLUCOSE; Start 06/14/17 at 06:30 Glucose (Glutose) 15 gm Q15M PRN BUCCAL DECREASED GLUCOSE; Start 06/14/17 at 06 :30 IV Flush (NS 10 ml) 10 ml PRN PRN IV IV PROTOCOL; Start 06/14/17 at 19:00 Carvedilol (Coreg) 12.5 mg Q12 PO Last administered on 06/17/17 08:15; Admin Dose 12.5 MG; Start 06/15/17 at 21:00 Levofloxacin (Levaquin) 750 mg DAILY PO Last administered on 06/17/17 08:16; Admin Dose 750 MG; Start 06/16/17 at 15:30 Furosemide (Lasix) 40 mg DAILY@06 PO ; Start 06/18/17 at 06:00 SHAYNE LOPEZ Jun 17, 2017 13:17
[2017-06-17 13:18] LABS: CALCIUM 9.1 mg/dl (8.4-10.2); CREATININE 0.82 mg/dl (0.61-1.24); POTASSIUM 4.4 mmol/L (3.5-5.1)
--- NOTE | 2017-06-17 13:23 | PN ---
Date/Time of Note Date/Time of Note DATE: 06/17/17 TIME: 13:14 Assessment/Plan VTE Prophylaxis VTE Prophylaxis Intervention: heparin Lines/Catheters IV Catheter Type (from Nrs): PICC Line Central line still needed: Yes (For IV antibiotics) Urinary Cath still in place: No Assessment/Plan Assessment/Plan 56 yo male with: 1. Acute respiratory failure, status post BiPAP on the first few days of admission, patient better currently, between nasal cannula 2 L and room air. CTA chest with pulmonary edema, ongoing CHF exacerbation also seems like patient has a right middle lobe pneumonia on chest x-ray and possible episodes of bronchospasms Appreciate recommendations from cardiology and pulmonary Patient much improved, on room air the past 4 days now Ambulating on room air. Stress test negative Repeat chest x-ray still pending On Lasix changed to daily dosing of today. Blood cx back with 1/2 coagulase-negative Staphylococcus, likely contaminant, repeat blood cultures negative, new PICC line in place BP much better controlled. 2. Hypertension, uncontrolled on admission, better controlled BP now Titrate and add medications as needed for blood pressure. Continue diuresis with Lasix po and Aldactone. 3. ? Pneumonia, possibly healthcare associated versus community-acquired, patient has been on vancomycin as an outpatient already, reviewing imaging, actually unlikely patient had pneumonia, most likely all infiltrates seen were secondary to pulmonary edema. Back on Levaquin po. Repeat blood cultures NGTD. New PICC line in place. On room air 4. Right Diabetic foot infection, previous MRI consistent with osteomyelitis of second toe, myositis and also tenosynovitis, On his last admission the recommendation was for patient to remain on long-term IV antibiotics as patient not keen on surgical amputation. New PICC line placed. He is to complete a 6-week course of antibiotics per infectious disease and podiatry. 5. Diabetes mellitus: A1c of 6.1, continue outpatient regimen at that time including metformin for now. Sliding scale insulin and diabetic diet. 6. Hyperlipidemia : Continue statin therapy. Prophylaxis : Lovenox for DVT prophylaxis, Pepcid for GI prophylaxis. Disposition : Patient currently on telemetry, stable, on p.o. diuretics now, follow-up chest x-ray today D/c plan today with home health for IV antibiotics x 3 more weeks. Subjective 24 Hr Interval Summary Free Text/Dictation Patient doing well, on room air, diuresing very well. He will be discharged home today back on his IV antibiotics. He likely needs 3 more weeks of it. Exam/Review of Systems Vital Signs Vitals Vital Signs Date Time Temp Pulse Resp B/P Pulse Ox O2 Delivery O2 Flow Rate FiO2 06/17/17 12:16 67 06/17/17 11:59 98.2 20 113/78 98 06/15/17 07:40 Nasal Cannula 2.0 Intake and Output 06/16/17 06/16/17 06/17/17 15:00 23:00 07:00 Intake Total 1550 ml 1000 ml Output Total 1600 ml Balance 1550 ml -600 ml Exam Constitutional: alert, oriented, well developed Respiratory: clear to auscultation, normal air movement, other (On room air) Cardiovascular: nl pulses, regular rate and rhythm Gastrointestinal: non-tender, soft Musculoskeletal: other (Ulcerated areas on tip of his toes much improved) Extremities: normal pulses, other (No edema, clubbing or cyanosis) Neurological: FACILITY MANAGER II-XII intact, nl mental status, nl speech, nl strength Results Result Diagram: 06/16/1741 06/16/17 0741 Results 24 hrs Laboratory Tests Test 06/16/17 17:21 06/16/17 20:42 06/17/17 08:04 06/17/17 12:35 Bedside Glucose 122 119 164 126 Medications Medications Current Medications Aspirin (Aspirin) 81 mg DAILY PO Last administered on 06/17/17 08:15; Admin Dose 81 MG; Start 06/08/17 at 09:00 Lactobacillus Acidophilus/ Rhamnosus (Culturelle) 1 cap BID PO Last administered on 06/17/17 08:16; Admin Dose 1 CAP; Start 06/08/17 at 09:00 Lisinopril (Zestril) 40 mg BID PO Last administered on 06/17/17 08:15; Admin Dose 40 MG; Start 06/08/17 at 09:00 Multivitamins Therapeutic (Theragran) 1 tab DAILY PO Last administered on 08:16; Admin Dose 1 TAB; Start 06/08/17 at 09:00 Verapamil HCl (Isoptin Sr) 360 mg DAILY PO Last administered on 06/17/17 08:16 ; Admin Dose 360 MG; Start 06/08/17 at 09:00 Vitamin E (Vitamin E) 400 units DAILY PO Last administered on 06/17/17 08:16; Admin Dose 400 UNITS; Start 06/08/17 at 09:00 Atorvastatin Calcium (Lipitor) 10 mg DAILY@21 PO Last administered on 20:34; Admin Dose 10 MG; Start 06/08/17 at 21:00 Ondansetron HCl (Zofran Inj) 4 mg Q6H PRN IV NAUSEA AND/OR VOMITING; Start at 04:00 Nitroglycerin (Nitroglycerin (Sl Tab) 0.4 Mg) 1 tab Q5M PRN SL CHEST PAIN; Start 06/08/17 at 04:00 Acetaminophen (Tylenol Tab) 650 mg Q6H PRN PO PAIN LEVEL 1-3 OR FEVER Last administered on 06/09/17 08:49; Admin Dose 650 MG; Start 06/08/17 at 04:00 Acetaminophen/ Hydrocodone Bitart (Jackson (5/325)) 1 tab Q6H PRN PO PAIN LEVEL 4 -6 Last administered on 06/10/17 19:00; Admin Dose 1 TAB; Start 06/08/17 at 04: 00 Acetaminophen/ Hydrocodone Bitart (Jackson (5/325)) 2 tab Q6H PRN PO PAIN LEVEL 7 -10 Last administered on 06/12/17 12:15; Admin Dose 2 TAB; Start 06/08/17 at 04 :00 Morphine Sulfate (morphine) 2 mg Q4H PRN IV PAIN LEVEL 7-10 Last administered on 06/08/17 19:58; Admin Dose 2 MG; Start 06/08/17 at 04:00 Docusate Sodium (Colace) 100 mg Q12H PRN PO CONSTIPATION; Start 06/08/17 at 04: 00 Magnesium Hydroxide (Milk Of Mag) 30 ml DAILY PRN PO CONSTIPATION; Start at 04:00 Bisacodyl (Dulcolax Supp) 10 mg DAILY PRN [place] CONSTIPATION; Start 06/08/17 at 04 :00 Heparin Sodium (Porcine) (Heparin (5000 Units/0.5 ml)) 5,000 unit Q8 SC Last administered on 06/17/17 13:12; Admin Dose 5,000 UNIT; Start 06/08/17 at 06:00 Hydralazine HCl (Apresoline) 10 mg Q4H PRN IV ELEVATED SYSTOLIC BP Last administered on 06/15/17 00:27; Admin Dose 10 MG; Start 06/08/17 at 04:30 Diagnostic Test (Pha) 1 ea 1 ea 02 XX Last administered on 06/11/17 02:00; Admin Dose 1 EA; Start 06/09/17 at 02:00 Vancomycin HCl/ Sodium Chloride (Vancocin/NS) 250 ml @ 83.333 mls/ hr Q12H IVPB Last administered on 06/17/17 08:01; Admin Dose 83.333 MLS/HR; Start 06/08 at 19:00 Povidone Iodine (Povidone-Iodine) 1 applic DAILY TOP Last administered on 08:17; Admin Dose 1 APPLIC; Start 06/08/17 at 09:00 Pantoprazole (Protonix Tab) 40 mg DAILY@06 PO Last administered on 06/17/17 05: 39; Admin Dose 40 MG; Start 06/09/17 at 06:00 Lorazepam (Ativan) 2 mg Q6H PRN IV AGITATION/ANXIETY Last administered on 19:35; Admin Dose 2 MG; Start 06/08/17 at 19:30 Spironolactone (Aldactone) 25 mg DAILY PO Last administered on 06/17/17 08:13; Admin Dose 25 MG; Start 06/11/17 at 13:00 Guaifenesin (Robitussin Liquid Cup) 300 mg Q4H PRN PO COUGH Last administered on 06/17/17 08:17; Admin Dose 300 MG; Start 06/14/17 at 01:00 Miscellaneous Information 1 ea NOTE XX ; Start 06/14/17 at 06:30 Glucose (Glutose) 15 gm Q15M PRN PO DECREASED GLUCOSE; Start 06/14/17 at 06:30 Glucose (Glutose) 22.5 gm Q15M PRN PO DECREASED GLUCOSE; Start 06/14/17 at 06: 30 Dextrose (D50w Syringe) 25 ml Q15M PRN IV DECREASED GLUCOSE; Start 06/14/17 at 06:30 Dextrose (D50w Syringe) 50 ml Q15M PRN IV DECREASED GLUCOSE; Start 06/14/17 at 06:30 Glucagon (Glucagen) 1 mg Q15M PRN IM DECREASED GLUCOSE; Start 06/14/17 at 06:30 Glucose (Glutose) 15 gm Q15M PRN BUCCAL DECREASED GLUCOSE; Start 06/14/17 at 06 :30 IV Flush (NS 10 ml) 10 ml PRN PRN IV IV PROTOCOL; Start 06/14/17 at 19:00 Carvedilol (Coreg) 12.5 mg Q12 PO Last administered on 06/17/17 08:15; Admin Dose 12.5 MG; Start 06/15/17 at 21:00 Levofloxacin (Levaquin) 750 mg DAILY PO Last administered on 06/17/17 08:16; Admin Dose 750 MG; Start 06/16/17 at 15:30 Furosemide (Lasix) 40 mg DAILY@06 PO ; Start 06/18/17 at 06:00 LORENA WATKINS Jun 17, 2017 13:22
--- NOTE | 2017-06-17 13:31 | PDOCDIS ---
Discharge Instructions CONDITION Patient Condition: Stable HOME CARE INSTRUCTIONS: Special Diet: CCD ACTIVITY: Activity Restrictions: Slowly Increase Activity FOLLOW UP/APPOINTMENTS Follow-up Plan Follow-up with podiatry within 1-2 weeks as previously scheduled or requested, of note patient would prefer NOT to follow-up with Dr. Luz Follow-up with primary care physician within 1 week Follow-up with home health wound care Follow up with home health IV antibiotics Follow-up with cardiology as an outpatient within 2 weeks LORENA WATKINS Jun 17, 2017 13:31
[2017-06-17] MEDS ORDERED: CARV12.598 PO (13:35)
[2017-06-17] MEDS ORDERED: SPIR25TA PO (13:35)
[2017-06-17] MEDS ORDERED: LEVO750T25 PO (13:35)
[2017-06-17] MEDS ORDERED: VANC1.5P10 IV (13:35)
[2017-06-17] MEDS ORDERED: FURO40TA4 PO (13:35)
[2017-06-18] MEDS ORDERED: FUROSEMIDE 40 MG TAB PO SCH (06:00)
== END 2017-06-17 18:50 | disposition home health service (06) | DRG 291 ==
LOC: E/R 00:52 → ICU 05:27 → MS4 19:01 → ICU 19:20 → TEL 06-11 17:45
PROVIDERS: ADMIT Internal Medicine; ATTEND Internal Medicine
PROC: 5A09357 Assistance with Respiratory Ventilation, Less than 24 Consecutive Hours, Continuous Positive Airway Pressure (ICD-10-PCS; 2017-06-08)
PROC: 02HV33Z Insertion of Infusion Device into Superior Vena Cava, Percutaneous Approach (ICD-10-PCS; principal; 2017-06-14)
DX: I11.0 Hypertensive heart disease with heart failure (principal); J96.01 Acute respiratory failure with hypoxia; J18.9 Pneumonia, unspecified organism; I16.1 Hypertensive emergency; M86.9 Osteomyelitis, unspecified; I50.33 Acute on chronic diastolic (congestive) heart failure; E11.621 Type 2 diabetes mellitus with foot ulcer; E11.69 Type 2 diabetes mellitus with other specified complication; L97.519 Non-pressure chronic ulcer of other part of right foot with unspecified severity; E78.5 Hyperlipidemia, unspecified; M65.9 Synovitis and tenosynovitis, unspecified; D64.9 Anemia, unspecified; Y95 Nosocomial condition; B95.61 Methicillin susceptible Staphylococcus aureus infection as the cause of diseases classified elsewhere; Z79.4 Long term (current) use of insulin
CPT/HCPCS: 36415; 36569; 36600; 71010; 71020; 71275; 76937; 78452; 80048; 80053; 80061; 80076; 80202; 81001; 82550; 82553; 82803; 82962; 83036; 83605; 83735; 83880; 84100; 84484; 85025; 85610; 85730; 87040; 87070; 87081; 87086; 93005; 93017; 93306; 93308; 94640; 94660; 94664; 96365; 96366; 96375; 96376; A9500; A9505; C1769; C9113; J0360; J1644; J1815; J1940; J2060; J2185; J2270; J2785; J2997; J3370; J3475; J7040; J7050; Q9967

== ENCOUNTER 2017-07-12 18:15 | Emergency (ER) | payer OTHER ==
[~2017-07-12] VITALS: Ht 165.1 cm; Wt 79.0 kg
[~2017-07-12 18:15] MED LIST changes: +CARV12.598 PO; -CARV6.2579 PO; +FURO40TA4 PO; -IBUP-1542 PO; +LEVO750T25 PO; +SPIR25TA PO; +VANC1.5P10 IV; +VERA360C6 PO; -VERA80TA PO; -[UNRECOGNIZED DRUG - CODE] IVPB
[2017-07-12 18:17] VITALS: Ht 165.1 cm; Wt 79.0 kg
--- NOTE | 2017-07-13 03:02 | ERD ---
ER Documentation Chief Complaint Date/Time DATE: 07/13/17 TIME: 02:54 Chief Complaint PICC LINE REMOVAL COMPLETED TX YESTERDAY HPI 56-year-old male present ED requesting PICC line removal. Patient stated that PICC line was placed for outpatient antibiotic treatment. He had completed the 6 week course of antibiotic regimen yesterday. His PCP does not want to remove his PICC line. The antibiotic treatment is for cellulitis of his right toe. Patient stated that his cellulitis has resolved. Denies fever or chills. ROS All systems reviewed and are negative except as per history of present illness. Medications Home Meds Active Scripts Levofloxacin* (Levaquin*) 750 Mg Tablet, 750 MG PO DAILY for 24 Days, TAB patient should have medication at home already Prov:LORENA GAMING 06/17/17 Carvedilol* (Coreg*) 12.5 Mg Tablet, 12.5 MG PO BID, #60 TAB 3 Refills Prov:LORENA GAMING 06/17/17 Furosemide (Lasix) 40 Mg Tab, 40 MG PO DAILY for 30 Days, TAB 3 Refills Prov:LORENA GAMING 06/17/17 Vancomycin/0.9 % Sod Chloride (Vanco 1.5 gm/250 ml-0.9% NaCl) 1.5 Gm/250 Ml Plast..bag, 1.5 GM IV Q12 for 24 Days Prov:LORENA GMAING 06/17/17 Spironolactone* (Aldactone*) 25 Mg Tablet, 25 MG PO DAILY for 30 Days, TAB 3 Refills Prov:LORENA GAMING 06/17/17 Lactobacillus Rhamnosus* (Culturelle*) 1 Each Cap.sprink, 1 CAP PO BID, #60 CAP Prov:LORENA GAMING 05/29/17 Levofloxacin* (Levaquin*) 500 Mg Tablet, 500 MG PO DAILY for 42 Days, TAB Prov:LORENA GAMING 05/29/17 Reported Medications Verapamil Hcl* (Verelan*) 360 Mg Cap24h.pel, 360 MG PO DAILY, CAP 06/08/17 Calcium Carbonate/Vitamin D3 (OYSTER SHELL CALCIUM TABLET) 1 Each Tablet, 1 EACH PO, TAB 05/26/17 Vitamin E Mixed* (Vitamin E*) 400 Unit Capsule, 400 UNIT PO DAILY, CAP 05/26/17 Biotin (BIOTIN) 1 Mg Capsule, 1 MG PO, CAP 05/26/17 Omega3/Dha/Epa/Fish Oil/Vit D3 (Deforest-3 + Vitamin D3 Softgel) 1 Each Capsule, 1 EACH PO, CAP 05/26/17 Vitamin B Complex (Vitamin B Complex) 1 Each Capsule, 1 EACH PO, CAP 05/26/17 Multivitamins* (Theragran*) 1 Tab Tab, 1 TAB PO DAILY, TAB 05/26/17 Aspirin* (Aspirin* Chew) 81 Mg Tab.chew, 81 MG PO DAILY, TAB.CHEW 08/27/15 Lovastatin* (Lovastatin*) 20 Mg Tablet, 20 MG PO HS, TAB 08/27/15 Glimepiride* (Glimepiride*) 1 Mg Tablet, 1 MG PO BID, TAB 08/27/15 Metformin* (Glucophage*) 1,000 Mg Tablet, 1000 MG PO BID, TAB 08/27/15 Lisinopril* (Lisinopril*) 40 Mg Tablet, 40 MG PO BID, TAB 08/27/15 Allergies Allergies: Coded Allergies: No Known Allergy (Unverified , 05/26/17) PMhx/Soc History of Surgery: Yes (APPY) Anesthesia Reaction: No Hx Neurological Disorder: No Hx Respiratory Disorders: Yes (coughing blood) Hx Cardiac Disorders: Yes (hypertension) Hx Psychiatric Problems: No Hx Miscellaneous Medical Probl: No Hx Alcohol Use: No Hx Substance Use: No Hx Tobacco Use: No Physical Exam Vitals Vital Signs Date Time Temp Pulse Resp B/P Pulse Ox O2 Delivery O2 Flow Rate FiO2 07/12/17 18:17 98.5 73 20 160/80 99 Physical Exam General: Well-developed, well-nourished, conscious and coherent, in no distress Skin: Warm and dry without rash, good texture and turgor Head: Normocephalic without evidence of trauma Eyes: Sclera and conjunctivae normal; pupils equal, round, and reactive to light; extraocular movements are intact Chest: Normal AP diameter. Good expansion without retractions. Nontender. Lungs are clear to auscultate bilaterally with good tidal volume Heart: Regular rate and rhythm. No murmur, rub, or gallops heard Extremities: Full range of motion. Good strength bilaterally. No clubbing, cyanosis, erythema or edema. Peripheral pulses are intact. Sensation intact. The previous cellulitis site at the distal right third toe has normal appearance , no erythema, swelling, or exudates. Nontender. There are several calluses noted on the first, second, and fifth toes of the right foot. Neuro: Alert and oriented 4, GCS 15. Cranial nerves grossly intact. Motor and sensory exams nonfocal. Moves all extremities. Speech clear. Gait normal Procedures/MDM 56-year-old male with history of diabetes and recent cellulitis of the right foot present ED requesting for PICC line removal. Patient was hospitalized for cellulitis right foot, and discharged on May 26, 2017. At the time discharge , Dr. Gaming had ordered 6 week course of IV antibiotics. Patient had completed the 6 weeks course of antibiotics. Cellulitis had resolved. I have discussed patient with Dr. [place]. We both feel that it is appropriate to remove patient' s PICC line at this time. PICC line removed by me. No hemorrhage after PICC line removal. No erythema, swelling, exudate noted at PICC line site. Patient advised to follow-up with his PCP for continued diabetes management. Patient also advised to obtain shoes that had more spaces for his toes to avoid pressure ulcers. Patient appears well, stable for discharge and outpatient management. Medical decision making shared with patient and family. Education provided to patient and family. Patient and family expressed understanding of the plan. Medications on discharge: None. Follow-up: Primary care provider in 2-3 days or return to ED if worse. Disclaimer: Inadvertent spelling and grammatical errors are likely due to EHR/ dictation software use and do not reflect on the overall quality of patient care. Also, please note that the electronic time recorded on this note does not necessarily reflect the actual time of the patient encounter. Departure Diagnosis: Primary Impression: PICC (peripherally inserted central catheter) removal Condition: Stable Patient Instructions: Recognizing and Treating Wound Infection Additional Instructions: Call your primary care doctor TOMORROW for an appointment during the next 2-3 days.See the doctor sooner or return here if your condition worsens before your appointment time. DIANE GIRON NP Jul 13, 2017 03:02
== END 2017-07-12 19:43 | disposition home or self-care (01) ==
LOC: FTE 18:15
DX: Z45.2 Encounter for adjustment and management of vascular access device (principal); I10 Essential (primary) hypertension; Z79.82 Long term (current) use of aspirin; Z79.84 Long term (current) use of oral hypoglycemic drugs
CPT/HCPCS: 99282

== ENCOUNTER 2018-05-01 12:17 | Inpatient (IN) | END 2018-05-03 17:25 | disposition home or self-care (01) | DRG 309 ==